=== PATIENT | female | born 1955 | race Caucasian/White ===

== ENCOUNTER → 2019-02-17 | Outpatient (CLI) | payer BC, SELFPAY ==
[2019-02-17 15:47] VITALS: BMI 35.7
[2019-02-18 00:32] LABS: ALB/GLOB Ratio 1.2 RATIO (0.9-2.4); AST(SGOT) 17 U/L (15-37); Alanine Aminotransfer ALT/SGPT 20 U/L (13-56); Albumin, Serum 4.2 g/dL (3.2-5.0); Alkaline Phosphatase 105 U/L (45-117); Anion Gap 2 (5-15); BUN 16 mg/dL (7-18); BUN/Creat Ratio 20.7 RATIO (10-20); Calcium,Total 8.7 mg/dL (8.5-10.1); Chloride 104 mmol/L (98-107); Cholesterol 257 mg/dL (200); Creatinine, Serum 0.77 mg/dL (0.55-1.02); EST Glomerular Filtration Rate 80 mL/min (>60); Est Glom Filt Rate - Afr Amer 97 mL/min (>60); Globulin 3.5 g/dL (2.2-4.2); Glucose 98 mg/dL (74-106); High Density Lipoprotein 42 mg/dL; Potassium 4.2 mmol/L (3.5-5.1); Protein, Total 7.7 g/dL (6.4-8.2); Sodium Level 137 mmol/L (136-145); Thyroid Stim Hormone (TSH) 1.22 uIU/mL (0.358-3.74); Triglycerides 390 mg/dL; Very Low Density Lipoprotein 78 mg/dL (5-40)
[2019-02-18 00:38] LABS: Absolute Lymphocyte Count 3.98 X10^3/ul (0.83-4.51); Absolute Neutrophil Count 5.3 X10^3/uL (2.0-7.7); Basophil# 0.04 X10^3/uL; Basophil% 0.4 % (0-1); Eosinophil# 0.24 X10^3/uL; Eosinophils% 2.3 % (0-5); Hematocrit 37.5 % (37-47); Lymphocyte # 3.98 X10^3/ul (4.0); Lymphocyte % 38.1 % (19-41); Mean Corpuscular Volume 92.4 fL (81-99); Mean Platelet Vol. 10.7 fl (6.2-12.0); Monocyte# 0.87 X10^3/uL; Monocyte% 8.3 % (0-10); Neutrophil % 50.8 % (47-70); Platelet Count 306 K/mm3 (150-450); RBC Distribution Width CV 14.8 % (11.6-14.6); RBC Distribution Width SD 41.1 fl (35.1-43.9); Red Blood Count 4.06 M/mm3 (4.2-5.4); White Blood Count 10.4 K/mm3 (4.4-11.0)
[2019-02-18 00:43] LABS: Hemoglobin 13.8 g/dl (12.0-15.0); Mean Corp Hgb Conc 36.8 g/gl (32-36)
[2019-02-18 00:44] LABS: Differential Indicated SCAN CRITERIA MET; POSITIVE COUNT YES; POSITIVE DIFFERENTIAL NO; POSITIVE MORPHOLOGY NO
[2019-02-18 02:07] LABS: Differential Comment SCANNED; Platelet Estimate ADEQUATE (ADEQ)
== END | disposition home or self-care (01) ==
PROVIDERS: Referring Provider Nurse Practitioner; Visit Provider Nurse Practitioner
DX: E03.9 Hypothyroidism, unspecified (principal); F41.9 Anxiety disorder, unspecified; E78.00 Pure hypercholesterolemia, unspecified
CPT/HCPCS: 80053; 80061; 84443; 85025

== ENCOUNTER → 2020-03-06 21:08 | Outpatient (CLI) | payer OTHER, SELFPAY ==
[2020-03-06 17:27] VITALS: BMI 35.9
[2020-03-06 21:37] LABS: Absolute Lymphocyte Count 3.73 X10^3/uL (0.83-4.51); Absolute Neutrophil Count 4.4 X10^3/uL (2.0-7.7); Basophil# 0.07 X10^3/uL; Basophil% 0.8 % (0-1); Eosinophil# 0.31 X10^3/uL; Eosinophils% 3.3 % (0-5); Hematocrit 42.9 % (37-47); Hemoglobin 13.9 g/dL (12.0-15.0); Lymphocyte # 3.73 X10^3/ul (4.0); Mean Corp Hgb Conc 32.4 g/dL (32-36); Mean Corpuscular Hgb 28.3 pg (27.0-32.0); Mean Corpuscular Volume 87.4 fL (81-99); Mean Platelet Vol. 10.7 fl (6.2-12.0); Monocyte# 0.76 X10^3/uL; Monocyte% 8.1 % (0-10); NRBC Flagged by Analyzer 0 % (0-5); Neutrophil # 4.44 X10^3/uL (2.7-7.7); Neutrophil % 47.6 % (47-70); Platelet Count 285 K/mm3 (150-450); Red Blood Count 4.91 M/mm3 (4.2-5.4); White Blood Count 9.3 K/mm3 (4.4-11.0)
[2020-03-06 21:41] LABS: ALB/GLOB Ratio 1.1 RATIO (0.9-2.4); AST(SGOT) 19 U/L (15-37); Alanine Aminotransfer ALT/SGPT 26 U/L (13-56); Albumin, Serum 4.1 g/dL (3.2-5.0); Alkaline Phosphatase 93 U/L (45-117); Anion Gap 7 (5-15); BUN 15 mg/dL (7-18); BUN/Creat Ratio 18.9 RATIO (10-20); Calcium,Total 9.1 mg/dL (8.5-10.1); Chloride 106 mmol/L (98-107); Cholesterol 243 mg/dL (200); EST Glomerular Filtration Rate 77 mL/min (>60); Est Glom Filt Rate - Afr Amer 93 mL/min (>60); Globulin 3.6 g/dL (2.2-4.2); Glucose 99 mg/dL (74-106); High Density Lipoprotein 43 mg/dL; Protein, Total 7.7 g/dL (6.4-8.2); Sodium Level 140 mmol/L (136-145); Thyroid Stim Hormone (TSH) 1.15 uIU/mL (0.358-3.74); Triglycerides 166 mg/dL; Very Low Density Lipoprotein 33 mg/dL (5-40)
== END ==
PROVIDERS: Referring Provider Nurse Practitioner; Visit Provider Nurse Practitioner
DX: E03.9 Hypothyroidism, unspecified (principal); I10 Essential (primary) hypertension
CPT/HCPCS: 80053; 80061; 83735; 84443; 85025

== ENCOUNTER → 2020-06-17 09:34 | Outpatient (CLI) | payer MEDICARE, SELFPAY ==
[2020-04-29 16:07] VITALS: BMI 35.2
--- NOTE | 2020-06-17 09:39 | VDLE_ITS ---
Reason For Study: VV W/other complications. RIGHT LEFT CFV is compressible, spontaneous, phasic, CFV is compressible, spontaneous, phasic, competent and demonstrates normal competent, and demonstrates normal augmentation. augmentation. FV is compressible, spontaneous, phasic, FV is compressible, spontaneous, phasic, competent and demonstrates normal competent and demonstrates normal augmentation. augmentation. POP V is compressible, spontaneous, phasic, POP V is compressible, spontaneous, phasic, competent and demonstrates normal competent and demonstrates normal augmentation. augmentation. T/P Trunk is compressible. T/P Trunk is compressible. PTV is compressible. PTV is compressible. RT PerV is compressible. LT PerV is compressible. SFJ is competent and measures 0.67 X 0.83 cm. SFJ is competent and measures 0.53 X 0.63 cm. GSV proximal thigh measures 0.59 X 0.62 cm. GSV proximal thigh measures 0.58 X 0.62 cm. GSV at knee measures 0.42 X 0.34 cm. GSV at knee measures 0.38 X 0.36 cm. GSV INCOMPETENT throughout for greater than GSV INCOMPETENT throughout for greater than 0.5 seconds. 0.5 seconds. SSV proximal calf is competent and measures Varicose Veins on medial knee area are 0.15 X 0.14 cm. compressible. RT GASTROCNEMIUS V IS DILATED & COMPRESSIBLE. Procedure Exam performed in department. The exam was diagnostic. Interpretation Summary 1. No DVT or SVT. Bilateral GSV reflux at 6.2mm and 6.2mm. Ordering Physician: Osito Garibay Referring Physician: soha Cruz Performed By: Elie SANTA RDCS, Coreen and Student
== END ==
PROVIDERS: PCP Nurse Practitioner; Referring Provider Surgery Vascular Surgery; Visit Provider Surgery Vascular Surgery
DX: I83.893 Varicose veins of bilateral lower extremities with other complications (principal)
CPT/HCPCS: 93970

== ENCOUNTER → 2021-06-05 21:28 | Outpatient (CLI) | payer MEDICARE, SELFPAY ==
[2021-06-05 22:09] LABS: ALB/GLOB Ratio 1.3 RATIO (0.9-2.4); AST(SGOT) 20 U/L (15-37); Alanine Aminotransfer ALT/SGPT 29 U/L (13-56); Albumin, Serum 4.3 g/dL (3.2-5.0); Alkaline Phosphatase 104 U/L (45-117); Anion Gap 8 (5-15); BUN 24 mg/dL (7-18); BUN/Creat Ratio 27.9 RATIO (10-20); Calcium,Total 9.1 mg/dL (8.5-10.1); Chloride 105 mmol/L (98-107); Cholesterol 255 mg/dL (200); Creatinine, Serum 0.86 mg/dL (0.55-1.02); EST Glomerular Filtration Rate 70 mL/min (>60); Est Glom Filt Rate - Afr Amer 85 mL/min (>60); Globulin 3.4 g/dL (2.2-4.2); Glucose 97 mg/dL (74-106); High Density Lipoprotein 44 mg/dL; Magnesium 2.2 mg/dL (1.6-2.6); Phosphorus 4.6 mg/dL (2.5-4.9); Protein, Total 7.7 g/dL (6.4-8.2); Sodium Level 138 mmol/L (136-145); Triglycerides 242 mg/dL; Very Low Density Lipoprotein 48 mg/dL (5-40)
[2021-06-05 22:28] LABS: Absolute Lymphocyte Count 3.88 X10^3/uL (0.83-4.51); Absolute Neutrophil Count 6.5 X10^3/uL (2.0-7.7); Basophil# 0.07 X10^3/uL; Basophil% 0.6 % (0-1); Eosinophil# 0.26 X10^3/uL; Eosinophils% 2.2 % (0-5); Hematocrit 44.5 % (37-47); Hemoglobin 14.6 g/dL (12.0-15.0); Lymphocyte # 3.88 X10^3/ul (0.83-4.51); Lymphocyte % 33.6 % (19-41); Mean Corp Hgb Conc 32.8 g/dL (32-36); Mean Corpuscular Hgb 28.6 pg (27.0-32.0); Mean Corpuscular Volume 87.1 fL (81-99); Mean Platelet Vol. 10.7 fl (6.2-12.0); Monocyte# 0.84 X10^3/uL; Monocyte% 7.3 % (0-10); NRBC Flagged by Analyzer 0 % (0-5); Neutrophil # 6.48 X10^3/uL (2.7-7.7); Platelet Count 301 K/mm3 (150-450); RBC Distribution Width SD 41.2 fl (35.1-43.9); Red Blood Count 5.11 M/mm3 (4.2-5.4); White Blood Count 11.6 K/mm3 (4.4-11.0)
[2021-06-06 10:03] LABS: PTHIN 53.5 pg/mL (18.4-80.1)
[2021-06-10 17:05] LABS: Vitamin D 1,25-Dihydroxy 39.1 pg/mL (19.9-79.3)
== END ==
PROVIDERS: PCP Nurse Practitioner; Visit Provider Nurse Practitioner
DX: Z00.00 Encounter for general adult medical examination without abnormal findings (principal); E03.9 Hypothyroidism, unspecified
CPT/HCPCS: 80053; 80061; 82652; 83735; 83970; 84100; 85025

== ENCOUNTER → 2021-07-31 21:24 | Outpatient (CLI) | payer MEDICARE, SELFPAY ==
[2021-07-31 22:22] LABS: Absolute Lymphocyte Count 3.13 X10^3/uL (0.83-4.51); Basophil# 0.06 X10^3/uL; Basophil% 0.5 % (0-1); Eosinophil# 0.24 X10^3/uL; Eosinophils% 2.1 % (0-5); Hematocrit 35.6 % (37-47); Hemoglobin 11.8 g/dL (12.0-15.0); Lymphocyte # 3.13 X10^3/ul (0.83-4.51); Mean Corp Hgb Conc 33.1 g/dL (32-36); Mean Corpuscular Hgb 28.9 pg (27.0-32.0); Mean Platelet Vol. 10.5 fl (6.2-12.0); Monocyte# 1.15 X10^3/uL; Monocyte% 9.9 % (0-10); NRBC Flagged by Analyzer 0 % (0-5); Neutrophil # 6.97 X10^3/uL (2.7-7.7); Platelet Count 303 K/mm3 (150-450); RBC Distribution Width CV 13.4 % (11.6-14.6); RBC Distribution Width SD 42.4 fl (35.1-43.9); Red Blood Count 4.09 M/mm3 (4.2-5.4); White Blood Count 11.6 K/mm3 (4.4-11.0)
[2021-07-31 22:38] LABS: ALB/GLOB Ratio 0.6 RATIO (0.9-2.4); AST(SGOT) 53 U/L (15-37); Alanine Aminotransfer ALT/SGPT 111 U/L (13-56); Albumin, Serum 3.1 g/dL (3.2-5.0); Alkaline Phosphatase 255 U/L (45-117); Anion Gap 10 (5-15); BUN 19 mg/dL (7-18); BUN/Creat Ratio 24.8 RATIO (10-20); Calcium,Total 8.7 mg/dL (8.5-10.1); Chloride 105 mmol/L (98-107); Creatinine, Serum 0.76 mg/dL (0.55-1.02); EST Glomerular Filtration Rate 80 mL/min (>60); Est Glom Filt Rate - Afr Amer 97 mL/min (>60); Globulin 4.9 g/dL (2.2-4.2); Glucose 99 mg/dL (74-106); Potassium 3.7 mmol/L (3.5-5.1); Sodium Level 139 mmol/L (136-145); Thyroid Stim Hormone (TSH) 0.96 uIU/mL (0.358-3.74)
== END ==
PROVIDERS: PCP Nurse Practitioner; Visit Provider Nurse Practitioner
DX: E03.9 Hypothyroidism, unspecified (principal); R53.83 Other fatigue; R53.1 Weakness
CPT/HCPCS: 80053; 84443; 85025

== ENCOUNTER → 2021-08-01 22:24 | Outpatient (CLI) | payer MEDICARE, SELFPAY ==
[2021-08-04 17:07] LABS: Endomysial Antibody IgA Negative (Negative); HEPATITIS B SURFACE AG Negative (Negative); Hepatitis A IgM Antibody Negative (Negative); Hepatitis B Core AB IgM Negative (Negative); Immunoglobulin A 218 mg/dL (87-352)
[2021-08-04 17:16] LABS: Hep C Antibodies 0.2 s/co ratio (0.0-0.9)
[2021-08-04 17:17] LABS: Deamidated Gliadin IgA 3 units (0-19); Deamidated Gliadin IgG 2 units (0-19); EBV Acute VCA IgM < 36.0 U/mL (0.0-35.9); EBV-VCA IgG > 600.0 U/mL (0.0-17.9); t-Transglutaminase IgA <2 U/mL (0-3)
== END ==
PROVIDERS: PCP Nurse Practitioner; Referring Provider Nurse Practitioner; Visit Provider Nurse Practitioner
DX: R74.8 Abnormal levels of other serum enzymes (principal); R53.83 Other fatigue; E46 Unspecified protein-calorie malnutrition; D64.9 Anemia, unspecified
CPT/HCPCS: 80074; 82784; 83516; 86255; 86664; 86665

== ENCOUNTER → 2021-08-12 09:25 | Outpatient (CLI) | payer MEDICARE, SELFPAY ==
--- NOTE | 2021-08-12 09:28 | US_ITS ---
STUDY: ABDOMINAL ULTRASOUND - RIGHT UPPER QUADRANT REASON FOR VISIT: Female, 65 years old elevated liver enzymes TECHNIQUE: Ultrasound evaluation of the right upper quadrant was performed with real-time and static goff-scale imaging. TECHNICAL QUALITY: Adequate. COMPARISON: None. FINDINGS: Visualized liver parenchyma shows homogeneous echotexture. There is no gallbladder stone. 2 tiny adjacent polyps are seen in the gallbladder measuring up to 0.3 cm. No gallbladder wall thickening or pericholecystic fluid is seen. Sonographic Aguilar''s sign has been reported negative. Common bile duct measures 0.4 cm in diameter. Visualized pancreatic head and body, portal vein, and right kidney are unremarkable. There is no free fluid in the Martinez''s pouch. US/Liver IMPRESSION: 2 tiny adjacent polyps in the gallbladder; otherwise, unremarkable right upper quadrant ultrasound. Electronically Signed: Lew Hdez MD at 16:33 EDT Tel , Service support ,
== END ==
PROVIDERS: PCP Nurse Practitioner; Referring Provider Nurse Practitioner; Visit Provider Nurse Practitioner
DX: D64.9 Anemia, unspecified (principal); E46 Unspecified protein-calorie malnutrition; R74.8 Abnormal levels of other serum enzymes; R53.1 Weakness; R53.83 Other fatigue
CPT/HCPCS: 76705

== ENCOUNTER → 2022-06-17 | Outpatient (CLI) | payer MEDICARE, SELFPAY ==
[2022-06-17 22:09] LABS: Absolute Lymphocyte Count 3.38 X10^3/uL (0.83-4.51); Absolute Neutrophil Count 5.6 X10^3/uL (2.0-7.7); Basophil# 0.05 X10^3/uL; Basophil% 0.5 % (0-1); Eosinophil# 0.11 X10^3/uL; Eosinophils% 1.1 % (0-5); Hematocrit 42.1 % (37-47); Hemoglobin 13.8 g/dL (12.0-15.0); Lymphocyte # 3.38 X10^3/ul (0.83-4.51); Lymphocyte % 34.3 % (19-41); Mean Corp Hgb Conc 32.8 g/dL (32-36); Mean Corpuscular Hgb 29.1 pg (27.0-32.0); Mean Corpuscular Volume 88.6 fL (81-99); Mean Platelet Vol. 10.7 fl (6.2-12.0); Monocyte# 0.69 X10^3/uL; NRBC Flagged by Analyzer 0 % (0-5); Neutrophil # 5.58 X10^3/uL (2.7-7.7); Neutrophil % 56.8 % (47-70); Platelet Count 310 K/mm3 (150-450); RBC Distribution Width SD 42.2 fl (35.1-43.9); Red Blood Count 4.75 M/mm3 (4.2-5.4); White Blood Count 9.8 K/mm3 (4.4-11.0)
[2022-06-17 22:47] LABS: ALB/GLOB Ratio 1.2 RATIO (0.9-2.4); AST(SGOT) 15 U/L (15-37); Alanine Aminotransfer ALT/SGPT 21 U/L (13-56); Albumin, Serum 3.8 g/dL (3.2-5.0); Alkaline Phosphatase 88 U/L (45-117); Anion Gap 6 (5-15); BUN 20 mg/dL (7-18); Calcium,Total 8.9 mg/dL (8.5-10.1); Chloride 106 mmol/L (98-107); Cholesterol 222 mg/dL (200); Creatinine, Serum 0.83 mg/dL (0.55-1.02); EST Glomerular Filtration Rate 72 mL/min (>60); Est Glom Filt Rate - Afr Amer 88 mL/min (>60); Globulin 3.3 g/dL (2.2-4.2); Glucose 116 mg/dL (74-106); High Density Lipoprotein 44 mg/dL; Potassium 3.7 mmol/L (3.5-5.1); Protein, Total 7.1 g/dL (6.4-8.2); Sodium Level 139 mmol/L (136-145); Thyroid Stim Hormone (TSH) 1.25 uIU/mL (0.358-3.74); Triglycerides 219 mg/dL; Very Low Density Lipoprotein 44 mg/dL (5-40)
== END | disposition home or self-care (01) ==
PROVIDERS: PCP Nurse Practitioner; Visit Provider Nurse Practitioner
DX: Z00.00 Encounter for general adult medical examination without abnormal findings (principal); E03.9 Hypothyroidism, unspecified; F41.9 Anxiety disorder, unspecified
CPT/HCPCS: 80053; 80061; 84443; 85025

== ENCOUNTER → 2022-07-14 | Outpatient (CLI) | payer MEDICARE, SELFPAY ==
[2022-07-23 16:09] LABS: Lyme IgG P18 Ab Absent (.); Lyme IgG P23 Ab Absent (.); Lyme IgG P28 Ab Present (.); Lyme IgG P30 Ab Absent (.); Lyme IgG P39 Ab Present (.); Lyme IgG P41 Ab Present (.); Lyme IgG P45 Ab Absent (.); Lyme IgG P58 Ab Present (.); Lyme IgG P66 Ab Absent (.); Lyme IgG P93 Ab Present (.); Lyme IgM P23 Ab Absent (.); Lyme IgM P39 Ab Absent (.); Lyme IgM P41 Ab Absent (.)
[2022-07-24 15:24] LABS: Lyme IgG WB Interpretation Positive (.); Lyme IgM WB Interpretation Negative (.)
== END | disposition home or self-care (01) ==
PROVIDERS: PCP Nurse Practitioner; Visit Provider Nurse Practitioner
DX: L29.9 Pruritus, unspecified (principal)
CPT/HCPCS: 86617

== ENCOUNTER → 2022-10-27 | Outpatient (CLI) | payer OTHER, SELFPAY ==
[2022-10-27 22:34] LABS: ALB/GLOB Ratio 1.3 RATIO (0.9-2.4); AST(SGOT) 12 U/L (15-37); Alanine Aminotransfer ALT/SGPT 23 U/L (13-56); Alkaline Phosphatase 98 U/L (45-117); Anion Gap 7 (5-15); BUN 14 mg/dL (7-18); Calcium,Total 8.7 mg/dL (8.5-10.1); Chloride 106 mmol/L (98-107); Creatinine, Serum 0.78 mg/dL (0.55-1.02); EST Glomerular Filtration Rate 78 mL/min (>60); Est Glom Filt Rate - Afr Amer 95 mL/min (>60); Glucose 106 mg/dL (74-106); Potassium 4.3 mmol/L (3.5-5.1); Sodium Level 142 mmol/L (136-145)
[2022-10-27 22:39] LABS: Absolute Lymphocyte Count 3.62 X10^3/uL (0.83-4.51); Absolute Neutrophil Count 6.1 X10^3/uL (2.0-7.7); Basophil# 0.07 X10^3/uL; Basophil% 0.6 % (0-1); Eosinophil# 0.26 X10^3/uL; Eosinophils% 2.4 % (0-5); Hematocrit 40.5 % (37-47); Hemoglobin 13.8 g/dL (12.0-15.0); Lymphocyte # 3.62 X10^3/ul (0.83-4.51); Lymphocyte % 33.6 % (19-41); Mean Corp Hgb Conc 34.1 g/dL (32-36); Mean Corpuscular Hgb 30.1 pg (27.0-32.0); Mean Corpuscular Volume 88.2 fL (81-99); Mean Platelet Vol. 10.6 fl (6.2-12.0); Monocyte# 0.76 X10^3/uL; Monocyte% 7.1 % (0-10); NRBC Flagged by Analyzer 0 % (0-5); Neutrophil # 6.05 X10^3/uL (2.7-7.7); Neutrophil % 56.1 % (47-70); Platelet Count 272 K/mm3 (150-450); RBC Distribution Width CV 13.1 % (11.6-14.6); RBC Distribution Width SD 42.1 fl (35.1-43.9); Red Blood Count 4.59 M/mm3 (4.2-5.4); White Blood Count 10.8 K/mm3 (4.4-11.0)
[2022-10-29 14:09] LABS: Anti-Centromere B Ab <0.2 AI (0.0-0.9); Anti-Chromatin <0.2 AI (0.0-0.9); Anti-Jo <0.2 AI (0.0-0.9); Anti-Scleroderma-70 AB <0.2 AI (0.0-0.9); RNP Ab 0.7 AI (0.0-0.9); SJOGREN'S Anti-SS-A test < 0.2 AI (0.0-0.9); SJOGREN'S Anti-SS-B test < 0.2 AI (0.0-0.9); Smith Ab <0.2 AI (0.0-0.9)
[2022-10-29 15:16] LABS: EBV Acute VCA IgM < 36.0 U/mL (0.0-35.9); EBV-VCA IgG > 600.0 U/mL (0.0-17.9)
[2022-10-29 17:32] LABS: Anti-dsDNA Ab 1 IU/mL (0-9)
== END | disposition home or self-care (01) ==
PROVIDERS: PCP Nurse Practitioner; Visit Provider Nurse Practitioner
DX: M16.11 Unilateral primary osteoarthritis, right hip (principal); B27.90 Infectious mononucleosis, unspecified without complication
CPT/HCPCS: 80053; 85025; 86225; 86235; 86664; 86665

== ENCOUNTER → 2023-03-17 | Outpatient (CLI) | payer OTHER, SELFPAY ==
[2023-03-17 22:03] LABS: Absolute Lymphocyte Count 3.95 X10^3/uL (0.83-4.51); Absolute Neutrophil Count 5.7 X10^3/uL (2.0-7.7); Basophil# 0.07 X10^3/uL; Basophil% 0.6 % (0-1); Eosinophil# 0.29 X10^3/uL; Eosinophils% 2.7 % (0-5); Hemoglobin 13.7 g/dL (12.0-15.0); Lymphocyte # 3.95 X10^3/ul (0.83-4.51); Lymphocyte % 36.4 % (19-41); Mean Corp Hgb Conc 33.4 g/dL (32-36); Mean Corpuscular Hgb 29.4 pg (27.0-32.0); Mean Platelet Vol. 10.4 fl (6.2-12.0); Monocyte# 0.84 X10^3/uL; Monocyte% 7.7 % (0-10); NRBC Flagged by Analyzer 0 % (0-5); Neutrophil # 5.66 X10^3/uL (2.7-7.7); Neutrophil % 52.3 % (47-70); Platelet Count 291 K/mm3 (150-450); RBC Distribution Width CV 13.3 % (11.6-14.6); Red Blood Count 4.66 M/mm3 (4.2-5.4); White Blood Count 10.8 K/mm3 (4.4-11.0)
[2023-03-17 22:16] LABS: ALB/GLOB Ratio 1.1 RATIO (0.9-2.4); AST(SGOT) 20 U/L (15-37); Alanine Aminotransfer ALT/SGPT 25 U/L (13-56); Alkaline Phosphatase 99 U/L (45-117); Anion Gap 7 (5-15); BUN 30 mg/dL (7-18); BUN/Creat Ratio 26.3 RATIO (10-20); Calcium,Total 8.5 mg/dL (8.5-10.1); Chloride 108 mmol/L (98-107); Cholesterol 235 mg/dL (200); Creatinine, Serum 1.14 mg/dL (0.55-1.02); EST Glomerular Filtration Rate 50 mL/min (>60); Est Glom Filt Rate - Afr Amer 61 mL/min (>60); Globulin 3.5 g/dL (2.2-4.2); Glucose 104 mg/dL (74-106); High Density Lipoprotein 45 mg/dL; Potassium 4.4 mmol/L (3.5-5.1); Protein, Total 7.5 g/dL (6.4-8.2); Sodium Level 140 mmol/L (136-145); Thyroid Stim Hormone (TSH) 4.26 uIU/mL (0.358-3.74); Triglycerides 226 mg/dL; Very Low Density Lipoprotein 45 mg/dL (5-40)
[2023-03-19 14:10] LABS: CMV Antibody IgG > 10.00 U/mL (0.00-0.59); EBV Acute VCA IgM < 36.0 U/mL (0.0-35.9); EBV-VCA IgG > 600.0 U/mL (0.0-17.9)
== END | disposition home or self-care (01) ==
PROVIDERS: PCP Nurse Practitioner; Visit Provider Nurse Practitioner
DX: E53.8 Deficiency of other specified B group vitamins (principal); E03.9 Hypothyroidism, unspecified; B27.90 Infectious mononucleosis, unspecified without complication; M25.50 Pain in unspecified joint; R53.83 Other fatigue; D64.9 Anemia, unspecified; F41.9 Anxiety disorder, unspecified
CPT/HCPCS: 80053; 80061; 84443; 85025; 86644; 86664; 86665

== ENCOUNTER → 2023-04-22 | Outpatient (CLI) | payer OTHER, SELFPAY ==
[2023-04-22 21:04] LABS: T4 Free Direct 0.73 ng/dL (0.76-1.46)
== END | disposition home or self-care (01) ==
PROVIDERS: PCP Nurse Practitioner; Visit Provider Nurse Practitioner
DX: F41.9 Anxiety disorder, unspecified (principal)
CPT/HCPCS: 84439; 84443

== ENCOUNTER → 2024-02-02 | Outpatient (CLI) | payer MEDICARE, SELFPAY ==
--- NOTE | 2024-02-02 11:37 | US_ITS ---
PROCEDURE: RENAL ULTRASOUND - COMPLETE REASON FOR EXAM: Female, 68 years old. UTI TECHNIQUE: Ultrasound evaluation of the bilateral kidneys was performed with real-time ultrasonography and static grayscale imaging. COMPARISON: None. FINDINGS: RIGHT KIDNEY: Normal location of the right kidney which is normal in size. The right kidney measures 10.8 x 6.8 x 4.7 cm. There is a normal cortex of the right kidney. The renal cortex measures 1.4 cm. There is no right renal mass or cyst. There are no right renal calculi. There is no right hydronephrosis. DISTAL RIGHT URETER: There is non-visualization of the distal right ureter. There is no demonstrated right ureterovesical junction calculus. There is a visualized right ureteral jet. LEFT KIDNEY: Normal location of the left kidney which is normal in size. The left kidney measures 14.2 x 5.8 x 5.4 cm. There is a normal cortex of the left kidney. The renal cortex measures 1.6 cm. There is a large cyst in the lower pole of the left kidney measuring about 10 x 12 x 6 cm There are no left renal calculi. There is no left hydronephrosis. DISTAL LEFT URETER: There is non-visualization of the distal left ureter. There is no demonstrated left ureterovesical junction calculus. There is a visualized left ureteral jet. BLADDER: The distended urinary bladder has a volume of 177 ml. There is a normal wall thickness of the distended urinary bladder. There is no demonstrated mass within the urinary bladder. There is no demonstrated bladder calculi. US/Kidney and Bladder IMPRESSION: 1. No evidence of hydronephrosis. 2. Large left renal cyst. Electronically Signed: Rafita Ivan MD at 13:58 EDT ,
== END | disposition home or self-care (01) ==
LOC: US 11:36
PROVIDERS: PCP Nurse Practitioner; Referring Provider Urology; Visit Provider Urology
DX: N39.0 Urinary tract infection, site not specified (principal)
CPT/HCPCS: 76770

== ENCOUNTER → 2024-08-28 | Outpatient (CLI) | payer MEDICARE, SELFPAY ==
[2024-08-29 00:19] LABS: ALB/GLOB Ratio 1.2 RATIO (0.9-2.4); AST(SGOT) 14 U/L (15-37); Alanine Aminotransfer ALT/SGPT 24 U/L (13-56); Albumin, Serum 3.9 g/dL (3.2-5.0); Alkaline Phosphatase 102 U/L (45-117); Anion Gap 7 (5-15); BUN 19 mg/dL (7-18); BUN/Creat Ratio 26.2 RATIO (10-20); Calcium,Total 8.6 mg/dL (8.5-10.1); Chloride 105 mmol/L (98-107); Cholesterol 230 mg/dL (200); Creatinine, Serum 0.72 mg/dL (0.55-1.02); EST Glomerular Filtration Rate 85 mL/min (>60); Est Glom Filt Rate - Afr Amer 102 mL/min (>60); Globulin 3.3 g/dL (2.2-4.2); Glucose 98 mg/dL (74-106); High Density Lipoprotein 51 mg/dL; Potassium 4.3 mmol/L (3.5-5.1); Protein, Total 7.2 g/dL (6.4-8.2); Sodium Level 138 mmol/L (136-145); Triglycerides 172 mg/dL; Very Low Density Lipoprotein 34 mg/dL (5-40)
[2024-08-29 02:09] LABS: Absolute Lymphocyte Count 4.09 X10^3/uL (0.83-4.51); Absolute Neutrophil Count 6.2 X10^3/uL (2.0-7.7); Basophil# 0.09 X10^3/uL; Basophil% 0.8 % (0-1); Eosinophil# 0.18 X10^3/uL; Eosinophils% 1.6 % (0-5); Hematocrit 42.9 % (37-47); Lymphocyte # 4.09 X10^3/ul (0.83-4.51); Mean Corpuscular Hgb 29.7 pg (27.0-32.0); Mean Corpuscular Volume 91.1 fL (81-99); Mean Platelet Vol. 11.3 fl (6.2-12.0); Monocyte# 0.75 X10^3/uL; Monocyte% 6.6 % (0-10); NRBC Flagged by Analyzer 0 % (0-5); Neutrophil # 6.16 X10^3/uL (2.7-7.7); Neutrophil % 54.1 % (47-70); Platelet Count 280 K/mm3 (150-450); RBC Distribution Width CV 13.7 % (11.6-14.6); RBC Distribution Width SD 44.9 fl (35.1-43.9); Red Blood Count 4.71 M/mm3 (4.2-5.4); White Blood Count 11.4 K/mm3 (4.4-11.0)
[2024-08-29 03:04] LABS: Mean Corp Hgb Conc 32.6 g/dL (32-36)
== END | disposition home or self-care (01) ==
PROVIDERS: PCP Nurse Practitioner; Referring Provider Nurse Practitioner; Visit Provider Nurse Practitioner
DX: Z00.00 Encounter for general adult medical examination without abnormal findings (principal); E03.9 Hypothyroidism, unspecified; I10 Essential (primary) hypertension; D51.0 Vitamin B12 deficiency anemia due to intrinsic factor deficiency
CPT/HCPCS: 80053; 80061; 84443; 85025

== ENCOUNTER → 2025-05-23 | Outpatient (CLI) | payer MEDICARE, SELFPAY ==
--- OUTSIDE RECORDS SUMMARY | 2025-05-23 21:16 | XMS RPT_ITS | CCD ---
Author Organization [facility] Care Team Providers Care Manager Nuclear Name Role Phone Brian ADAMSON, Arun Melendez Unavailable [phone] Anthony BROADCAST NEWS PRODUCER.YANN, Elmo Mason Primary Care Provide r Anthony BROADCAST NEWS PRODUCER.YANN, Elmo L Primary Care Provide r ISELA PINO Attending Unavailable ELMO ACKERMAN Primary Care Unavailable Anthony MARKETING SALES CONSULTANT, Elmo Primary Care Unavailable Anthony MARKETING SALES CONSULTANT, Elmo Attending Unavailable Anthony MARKETING SALES CONSULTANT, Elmo Referring Unavailable Tati Rivera Attending Unavailable Tati Rivera Referring Unavailable Anthony MARKETING SALES CONSULTANT, Elmo Primary Care Unavailable Anthony BROADCAST NEWS PRODUCER.PROCESSING ASSOCIATE, Elmo L Primary Care Provide r ELMO ACKERMAN Primary Care Unavailable Allergies Allergy Classification Reported Allergen(s) Allergy Type Date of Onset Reaction(s) Facility (1 source) House dust mite; Translations: [DUST MITES] allergy to substance 0 [facility] Work Phone: (1 source) Kingdom Animalia; Translations: [ANIMALS] allergy to substance 0 [facility] Work Phone: (1 source) Mold Extract; Translations: [MOLD] Drug Allergy 0 [facility] Work Phone: (1 source) PLANT POLLENS; Translations: [PLANT POLLENS] allergy to substance 0 [facility] Work Phone: (1 source) GENERAL ANESTHETIC drug allergy 0 [facility] Work Phone: Medications Current Medications Medication Drug Class(es) Dates Sig (Normalized) Sig (Original) ALPRAZolam 0.5 mg oral tablet (20 sources) Benzodiazepine Start: 12-08-2019 End: 06-17-2023 take 0.5 mg by mouth once daily Alprazolam Active 0.5 MG PO DAILY June 17, 2023 3:13pm Start: 02-17-2019 End: 12-08-2019 take 0.25 mg by mouth at bedtime Alprazolam Discontinued 0.25 MG PO AT BEDTIME February 17, 2019 12:00am December 08, 2019 6:13pm Start: 02-17-2019 End: 02-17-2019 take 0.5 mg by mouth twice daily Alprazolam Discontinued 0.5 MG PO TWICE A DAY February 17, 2019 12:00am February 17, 2019 4:10pm azelastine hydrochloride 0.137 mg/actuat metered dose nasal spray (11 sources) Histamine-1 Receptor Antagonist take 2 spray(s) nasal route twice daily as needed azelastine (ASTELIN,ASTEPRO) 0.1% nasal spray Use 2 Sprays in each nostril twice daily as needed. Active Comment on above: Use 2 Sprays in each nostril twice daily as needed. Budesonide / formoterol (11 sources) Corticosteroid, beta2-Adrenergic Agonist take 2 puff(s) by inhalation twice daily as needed budesonide-formoterol (SYMBICORT) 80-4.5 mcg/actuation inhaler Inhale 2 Puffs as instructed twice daily as needed. Active take 2 puff(s) by in halation twice daily as needed budesonide-formoterol (SYMBICORT) 80-4.5 mcg/actuation inhaler Inhale 2 Puffs as instructed twice daily as needed. 0 Active Comment on above: Inhale 2 Puffs as in structed twice daily as needed. famotidine 20 mg oral tablet (1 source) Histamine-2 Receptor Antagonist Start: 06-17-20 take 20 mg by mouth once daily Famotidine Active 20 MG PO DAILY June 17, 2023 12:00am levothyroxine sodium 0.075 mg oral tablet (11 sources) l-Thyroxine take 1 tablet by mouth once daily before breakfast levothyroxine (SYNTHROID) 75 mcg tablet Take 75 mcg by mouth daily before breakfast. Active Comment on above: Take 75 mcg by mouth daily before breakfast. lisinopril 10 mg oral tablet (20 sources) Angiotensin Converting Enzyme Inhibitor Start: 02-18-20 End: 06-17-20 take 10 mg by mouth once daily Lisinopril Active 10 MG PO DAILY June 17, 2023 3:14pm Comment on above: Take 10 mg by mouth once daily. pantoprazole 40 mg delayed release oral tablet (11 sources) Proton Pump Inhibitor Start: 12-18-19 take 1 tablet by mouth once daily pantoprazole DR (PROTONIX) 40 mg tablet Take 1 tablet by mouth once daily. 30 tablet 12/17/2017 Active Comment on above: Take 1 tablet by nani th once daily. Thyroid (Pork) (Frontenac Thyroid) 30 mg tablet (3 sources) Start: 06-17-20 take 1 tablet by mouth once daily Thyroid (Pork) (Frontenac Thyroid) 30 mg tablet Active 60 MG PO DAILY June 17, 2023 3:16pm Start: 04-23-2023 End: 06-17-2023 take 1 tablet by mouth once daily Thyroid (Pork) (Frontenac Thyroid) 30 mg tablet Discontinued 60 MG PO DAILY April 23, 2023 1:06pm June 17, 2023 3:16pm Start: 04-23-2023 take 1 tablet by nani th once daily Thyroid (Pork) (Frontenac Thyroid) 30 mg tablet Active 60 MG PO DAILY April 23, 2023 1:06pm Completed/Discontinued Medications Medication Drug Class(es) Dates Sig (Normalized) Sig (Original) 200 actuat albuterol 0.09 mg/actuat metered dose inhaler (12 sources) beta2-Adrenergic Agonist Start: 09-04-2020 PROAIR HFA 108 (90 Base) MCG/ACT AERS as directed as needed ALBUTEROL SULFATE [id number] Alisha Benavides LPN take 2.5 mg by inhal ation every four hours as needed albuterol (PROVENTIL) 2.5 mg /3 mL (0.08 3 %) nebulizer solution Use 2.5 mg via nebulizer every 4 hours as needed. Active Comment on above: Use 2.5 mg via nebul izer every 4 hours as needed. amoxicillin 875 mg oral tablet (2 sources) Penicillin-class Antibacterial Start: 04-23-20 End: 06-17-20 take 875 mg by mouth twice daily Amoxicillin Discontinued 875 MG PO TWICE A DAY April 23, 2023 12:00am June 17, 2023 3:06pm cefdinir 300 mg oral capsule (5 sources) Cephalosporin Antibacterial Start: 05-07-20 End: 06-17-20 take 300 mg by mouth twice daily Cefdinir Discontinued 300 MG PO TWICE A DAY May 07, 2022 12:00am June 17, 2022 4:36pm cetirizine hydrochloride 10 mg oral tablet (17 sources) Histamine-1 Receptor Antagonist Start: 09-04-20 CETIRIZINE HCL 10 MG TABS 1 tablet daily CETIRIZINE HCL [id number] Alisha Benavides LPN Start: 02-17-2019 take 1 tablet by nani once daily Cetirizine (Children's Zyrtec Allergy) 1 0 mg tablet,disintegrating Active 10 MG PO DAILY February 17, 2019 12:00am Comment on above: Take 10 mg by mouth once daily. CINNAMON TABS (1 source) Non-Standardized Food Allergenic Extract Start: CINNAMON TABS daily as directed CINNAMON TABS [id number] Alisha Benavides LPN ciprofloxacin 500 mg oral tablet (1 source) Quinolone Antimicrobial Start: 023 End: take 1 tablet by mouth twice daily Ciprofloxacin Hcl (Cipro) 500 mg tablet Discontinued 500 MG PO TWICE A DAY July 26, 2023 12:00am November 26, 2023 6:42pm clindamycin 150 mg oral capsule (5 sources) Lincosamide Antibacterial Start: 021 End: take 150 mg by mouth three times daily Clindamycin Hcl Discontinued 150 MG PO THREE TIMES A DAY 16 08July 31, 2021 12:00am August 10, 2021 12:01am dexamethasone 6 mg oral tablet (5 sources) Corticosteroid Start: 022 End: take 6 mg by mouth twice daily Dexamethasone Discontinued 6 MG PO TWICE A DAY May 07, 2022 12:00am June 17, 2022 4:36pm doxycycline hyclate 100 mg oral capsule (4 sources) Tetracycline-class Drug Start: End: take 100 mg by mouth twice daily Doxycycline Hyclate Discontinued 100 MG PO TWICE A DAY 60 July 24, 2022 12:00am October 29, 2022 1:58pm ergocalciferol 1.25 mg oral capsule (5 sources) Provitamin D2 Compound Start: End: take 71759 [IU] by mouth every week Ergocalciferol (Vitamin D2) Discontinued 25763 UNIT PO EVERY WEEK February 17, 2019 12:00am March 06, 2020 4:14pm magnesium chloride 598 mg delayed release oral tablet (10 sources) Start: End: take 35 mg by mouth twice daily Magnesium Chloride Discontinued 35 MG PO TWICE A DAY March 06, 2020 4:15pm March 17, 2023 7:47pm Start: 12-08-2019 End: 03-06-2020 take 70 mg by mouth three times daily Magnesium Chloride Discontinued 70 MG PO THREE TIMES A DAY December 08, 2019 1:00am March 06, 2020 4:17pm mirtazapine 15 mg oral tablet (5 sources) Start: 02-17-2019 End: 02-17-2019 take 15 mg by mouth at bedtime Mirtazapine Discontinued 15 MG PO AT BEDTIME February 17, 2019 12:00am February 17, 2019 4:09pm Multivitamin preparation (5 sources) Start: 02-17-2019 End: 03-06-2020 take 1 tablet by mouth once daily Multivitamin Discontinued 1 TABLET PO DAILY February 16, 2019 11:00pm March 06, 2020 3:15pm Start: 02-17-2019 End: 03-06-2020 take 1 tablet by mouth once daily Multivitamin Discontinued 1 TABLET PO DAILY February 17, 2019 12:00am March 06, 2020 4:15pm Joliet-3 Fatty Acids (Fish Oil Concentrate) 1,000 mg capsule (5 sources) Start: 02-17-2019 End: 03-06-2020 take 1 capsule by mouth once daily Joliet-3 Fatty Acids (Fish Oil Concentrate) 1,000 mg capsule Discontinued 1000 MG PO DAILY February 16, 2019 11:00pm March 06, 2020 3:16pm Start: 02-17-2019 End: 03-06-2020 take 1 capsule by mouth once daily Joliet-3 Fatty Acids (Fish Oil Concentrate) 1,000 mg capsule Discontinued 1000 MG PO DAILY February 17, 2019 12:00am March 06, 2020 4:16pm omeprazole 20 mg delayed release oral tablet (11 sources) Proton Pump Inhibitor Start: 09-04-2020 OMEPRAZO LE 20 MG TBEC 1 tablet daily as needed OMEPRAZOLE [id number] Alisha Benavides LPN Start: 12-08-2019 End: 06-17-2023 take 20 mg by mouth once daily Omeprazole Discontinued 20 MG PO DAILY March 06, 2020 4:16pm June 17, 2023 3:07pm predniSONE 10 mg oral tablet (10 sources) Start: 07-14-2022 End: 07-18-2022 Prednisone Discontinued 20 M G PO TWICE A DAY 14 02July 14, 2022 12:00am July 18, 2022 12:09am 2 po bid 4D,1 po bid for 4 D, 1 po qd for 4 D 1/2 po qd for 2 days Start: 08-05-2020 End: 06-05-2021 take 40 mg by mouth once daily Prednisone Discontinued 40 MG PO DAILY August 05, 2020 12:00am June 05, 2021 5:51pm rOPINIRole 0.25 mg oral tablet (13 sources) Nonergot Dopamine Agonist Start: 06-05-2021 End: 03-17-2023 take 0.25 mg by mouth three times daily Ropinirole Discontinued 0.25 MG PO THREE TIMES A DAY June 17, 2022 4:45pm March 17, 2023 7:48pm thyroid (fci) 30 mg oral tablet (20 sources) Start: 09-04-2020 ARMOUR THYROID 30 MG TABS 1 tablet daily THYROID [id number] Alisha Benavides LPN Start: 09-04-2020 ARMOUR THYROID 15 MG TABS 1 tablet daily THYROID [id number] Alisha Benavides LPN Start: 02-17-2019 End: 04-23-2023 Thyroid (Pork) (Frontenac Thyro id) 30 mg tablet Discontinued 30 MG PO DAILY June 30, 2022 4:27pm April 23, 2023 1:07pm take with the 15 mg orally once a day to =45 mg Start: 02-17-2019 End: 04-23-2023 Thyroid (Pork) (Frontenac Thyro id) 15 mg tablet Discontinued 15 MG PO DAILY June 30, 2022 4:27pm April 23, 2023 1:06pm take with 30 mg to make 45 mg Start: 02-17-2019 End: 02-17-2019 take 1 tablet by mouth once daily Thyroid (Pork) (Frontenac Thyroid) 30 mg tablet Discontinued 30 MG PO DAILY February 17, 2019 12:00am February 17, 2019 4:14pm Start: 02-17-2019 End: 02-17-2019 take 1 tablet by mouth once daily Thyroid (Pork) (Frontenac Thyroid) 15 mg tablet Discontinued 15 MG PO DAILY February 17, 2019 12:00am February 17, 2019 4:14pm Comment on above: Take 30 mg by mouth once daily. Take 15 mg by mouth once daily. Vitamin B Complex (Vitamins B Complex) capsule (5 sources) Start: 02-17-2019 End: 06-17-2022 take 1 capsule by mouth once daily Vitamin B Complex (Vitamins B Complex) capsule Discontinued 1 CAP PO DAILY February 16, 2019 11:00pm June 17, 2022 3:37pm Start: 02-17-2019 End: 06-17-2022 take 1 capsule by mouth once daily Vitamin B Complex (Vitamins B Complex) capsule Discontinued 1 CAP PO DAILY February 17, 2019 12:00am June 17, 2022 4:37pm Problems Active Problems Problem Classification Problem Date Documented Date Episodic/Chronic Anxiety disorders (5 sources) Anxiety; Translations: [Anxiety disorder, unspecified] 02-17-2019 Chronic Deficiency and other anemia (5 sources) Anemia; Translations: [Anemia, unspecified] 08-12-2021 Episodic Diverticulosis and diverticulitis (1 source) Diverticulitis of intestine, part unspecified, without perforation or abscess without bleeding; Translations: [Diverticulitis] Onset: 05-16-2024 Chronic Essential hypertension (5 sources) Hypertensive disorder; Translations: [Essential (primary) hypertension] 12-08-2019 Chronic Genitourinary symptoms and ill-defined conditions (1 source) Urinary incontinence; Translations: [Unspecified urinary incontinence] 11-26-2023 Chronic Genitourinary symptoms and ill-defined conditions (1 source) Dysuria; Translations: [Dysuria] 07-26-2023 Episodic Headache; including migraine (2 sources) Chronic headache disorder; Translations: [Chronic headache disorder] 04-22-2023 Episodic Malaise and fatigue (10 sources) Fatigue; Translations: [Other fatigue] 08-12-2021 Episodic Nutritional deficiencies (5 sources) Undernutrition; Translations: [Unspecified protein-calorie malnutrition] 08-01-2021 Chronic Nutritional deficiencies (1 source) Cobalamin deficiency; Translations: [Deficiency of other specified B group vitamins] 02-03-2024 Episodic Osteoarthritis (5 sources) Unilateral primary osteoarthritis of first carpometacarpal joint, left hand; Translations: [Osteoarthritis of right hip joint] Onset: 09-18-2020 09-18-2020 Chronic Osteoporosis (5 sources) Osteoporosis; Translations: [Age-related osteoporosis without current pathological fracture] 06-17-2022 Chronic Other connective tissue disease (1 source) Other synovitis and tenosynovitis, left forearm; Translations: [Other synovitis and tenosynovitis, left forearm] Onset: 09-18-2020 09-18-2020 Episodic Other connective tissue disease (5 sources) Spasm; Translations: [Other muscle spasm] 06-05-2021 Episodic Other connective tissue disease (5 sources) Pain in thumb ; Translations: [Pain in left finger(s)] 08-05-2020 Episodic Other diseases of kidney and ureters (1 source) Cyst of kidney, acquired; Translations: [Renal cyst] Onset: 05-16-2024 Episodic Other hereditary and degenerative nervous system conditions (11 sources) Dystonia; Translations: [Dystonia, unspecified] Onset: 12-16-2017 12-16-2017 Chronic Other inflammatory condition of skin (5 sources) Pruritus of skin; Translations: [Pruritus, unspecified] 07-14-2022 Episodic Other liver diseases (5 sources) Elevated liver enzymes level; Translations: [Abnormal levels of other serum enzymes] 08-01-2021 Episodic Other nervous system disorders (1 source) Carpal tunnel syndrome, left upper limb; Translations: [Carpal tunnel syndrome, left upper limb] Onset: 09-18-2020 09-18-2020 Chronic Other non-traumatic joint disorders (5 sources) Decreased range of thumb movement; Translations: [Stiffness of unspecified hand, not elsewhere classified] 08-05-2020 Episodic Other non-traumatic joint disorders (5 sources) Hip pain; Translations: [Pain in left hip] 06-17-2022 Episodic Other non-traumatic joint disorders (4 sources) Multiple joint pain; Translations: [Pain in unspecified joint] 10-27-2022 Episodic Other screening for suspected conditions (not mental disorders or infectious disease) (11 sources) Patient encounter status; Translations: [Encounter for screening mammogram for malignant neoplasm of breast] Onset: 10-26-2024 02-17-2019 Episodic Other skin disorders (5 sources) Papule of skin; Translations: [Other skin changes] 07-14-2022 Episodic Otitis media and related conditions (2 sources) Otitis media; Translations: [Otitis media, unspecified, left ear] 04-23-2023 Episodic Prolapse of female genital organs (1 source) Cystocele; Translations: [Cystocele, unspecified] 11-26-2023 Chronic Spondylosis; intervertebral disc disorders; other back problems (2 sources) Neck pain; Translations: [Cervicalgia] 04-22-2023 Episodic Thyroid disorders (5 sources) Acquired hypothyroidism; Translations: [Hypothyroidism, unspecified] 02-17-2019 Chronic Viral infection (4 sources) Infectious mononucleosis; Translations: [Infectious mononucleosis, unspecified without complication] 10-27-2022 Episodic Past or Other Problems Problem Classification Problem Date Documented Date Episodic/Chronic Noninfectious gastroenteritis (11 sources) Ileitis; Translations: [Noninfective gastroenteritis and colitis, unspecified] Onset: 12-16-2017 12-16-2017 Episodic Unclassified (1 source) Problem Unclassified (5 sources) BONE CHIP PRESSURE ON THE NERVE 05-18-2022 Unclassified (5 sources) BUNIONECTOMY R FOOT 05-18-2022 Unclassified (5 sources) LIPOSUCTION 05-18-2022 Unclassified (5 sources) TUMMY TUCK 05-18-2022 Urinary tract infections (14 sources) Acute cystitis; Translations: [Acute cystitis without hematuria] Onset: 12-16-2017 12-16-2017 Episodic Results Test Name Value Interpretation Reference Range [facility] SCREENINGon 10-26-2024 [facility] SCREENING * * *Final Report* * * DATE OF EXAM: Oct 26 2024 10:57AM SONJA [id number] - [facility] SCREENING / PROCEDURE REASON: Z12.31 Breast screen by mammogram * * * * Physician Interpretation * * * * [place] [id number] #[id number] - MARISA SCREENING HISTORY: Patient is 69 years old and is seen for screening. No current complaints. Patient states no personal history of breast cancer. Patient states no personal history of other cancers. COMPARISON STUDIES: The present examination has been compared to prior imaging studies dated 05/07/2020 (mammogram), 07/22/2021 (mammogram), 08/13/2021 (mammogram), 06/25/2022 (mammogram) and 09/15/2023 (mammogram). MAMMOGRAM TECHNIQUE: The study was acquired using full field digital technology and interpreted from soft copy. Computer-aided detection was utilized by the radiologist in the interpretation of this examination. MAMMOGRAM FINDINGS: The breasts are almost entirely fatty. No suspicious masses, calcifications or other abnormalities are seen in either breast. There are no significant interval changes. IMPRESSION: There is no mammographic evidence of malignancy in either breast. Routine screening mammogram is recommended. Annual mammogram will be due in 1 year. BI-RADS Category 1: Negative RISK: Based on the Tyrer-Cuzick (TC) risk assessment model, this patient has a 1.1% lifetime risk of developing breast cancer, meaning they are at average risk for developing breast cancer. However, this is only an estimate based on available history provided on the patient's questionnaire. We encourage all patients to talk with their providers about these results, further recommendations for managing breast health, and appropriate supplemental screening options if the patient has dense breast tissue. Interpreting Radiologist: Sean Parrish M.D. Electronically signed on: 10/27/2024 [employer] Consultant: FERNANDO Transcribe Date/Time: Oct 26 2024 10:20A Dictated by : SEAN PARRISH MD This examination was interpreted and the report reviewed and electronically signed by: SEAN PARRISH MD on Oct 27 2024 8:25AM EST [id number] CN Normal [facility] CBC W/Diff, Automatedon 11-1 MCHC (RBC) [Mass/Vol] 32.6 g/dL Normal 32-36 [facility] Comment on above: Result Comment: Resu lts obtained from prewarmed specimen. AMENDED REPORT 08/29/24 0304 MCHC previously reported as: 32.6 g/dL Performed By: #### L [id number], L500.4050, L100.0100, L500.4100 #### [facility] [address] [place], [address] Comprehensive Metabolic Prof ilon 08-29-2024 Albumin [Mass/Vol] 3.9 g/dL Normal 3.2-5.0 [facility] Comment on above: Performed By: #### L [id number], L500.4050, L100.0100, L500.4100 #### [facility] [address] [place], [address] Albumin/Globulin [Mass ratio] 1.2 {ratio} Normal 0.9-2.4 [facility] Comment on above: Performed By: #### L [id number], L500.4050, L100.0100, L500.4100 #### [facility] [address] [place], [address] ALK P 102 U/L Normal 45-117 [facility] Comment on above: Performed By: #### L [id number], [id number], L100.0100, L500.4100 #### [facility] [address] [place], [address] ALT [Catalytic activity/Vol] 24 U/L Normal 13-56 [facility] Comment on above: Performed By: #### L [id number], L500.4050, L100.0100, L500.4100 #### [facility] [address] [place], [address] AST [Catalytic activity/Vol] 14 U/L Low 15-37 [facility] Comment on above: Performed By: #### L [id number], [id number], L100.0100, L500.4100 #### [facility] [address] [place], [address] Bilirubin [Mass/Vol] 0.60 mg/dL Normal 0.20-1.00 [facility] Comment on above: Result Comment: For patients on eltrombopag therapy, use of Dimension Kevin TBIL is not recommended. Performed By: #### L [id number], L500.4050, L100.0100, L500.4100 #### [facility] [address] [place], [address] BUN/CRE 26.2 RATIO High 10-20 [facility] Comment on above: Performed By: #### L [id number], L500.4050, L100.0100, L500.4100 #### [facility] [address] [place], [address] CA,Total 8.6 mg/dL Normal 8.5-10.1 [facility] Comment on above: Performed By: #### L [id number], [id number], L100.0100, L500.4100 #### [facility] [address] [place], [address] Chloride [Moles/Vol] 105 mmol/L Normal 98-107 [facility] Comment on above: Performed By: #### L [id number], [id number], L100.0100, L500.4100 #### [facility] [address] [place], [address] CO2 [Moles/Vol] 26.0 mmol/L Normal 21.0-32.0 [facility] Comment on above: Performed By: #### L [id number], [id number], L100.0100, L500.4100 #### [facility] [address] [place], [address] Creatinine [Mass/Vol] 0.72 mg/dL Normal 0.55-1.02 [facility] Comment on above: Result Comment: The validity of the calculated GFR GFRAA in patients over 70 years has not been determined. Clinical correlation is essential. Performed By: #### L [id number], L500.4050, L100.0100, L500.4100 #### [facility] [address] [place], [address] EST GFR - AA 102 mL/min Normal >60 [facility] Comment on above: Result Comment: Afri can [place] GFR Calc Performed By: #### L [id number], L500.4050, L100.0100, L500.4100 #### [facility] [address] [place], [address] GAP 7 Normal 5-15 [facility] Comment on above: Performed By: #### L [id number], [id number], L100.0100, L500.4100 #### [facility] [address] [place], [address] GFR/1.73 sq M.predicted among non-blacks MDRD (S/P/Bld) [Vol rate/Area] 85 mL/min/{1.73_m2} Normal >60 [facility] Comment on above: Result Comment: Non- GFR Calc Performed By: #### L [id number], L500.4050, L100.0100, L500.4100 #### [facility] [address] [place], [address] Globulin (S) [Mass/Vol] 3.3 g/dL Normal 2.2-4.2 [facility] Comment on above: Performed By: #### L [id number], [id number], L100.0100, L500.4100 #### [facility] [address] [place], [address] Glucose [Mass/Vol] 98 mg/dL Normal 74-106 [facility] Comment on above: Performed By: #### L [id number], [id number], L100.0100, L500.4100 #### [facility] [address] [place], [address] Potassium [Moles/Vol] 4.3 mmol/L Normal 3.5-5.1 [facility] Comment on above: Performed By: #### L [id number], [id number], L100.0100, L500.4100 #### [facility] [address] [place], [address] Sodium [Moles/Vol] 138 mmol/L Normal 136-145 [facility] Comment on above: Performed By: #### L [id number], [id number], L100.0100, L500.4100 #### [facility] [address] [place], [address] T PROT 7.2 g/dL Normal 6.4-8.2 [facility] Comment on above: Performed By: #### L [id number], [id number], L100.0100, L500.4100 #### [facility] [address] [place], [address] Urea nitrogen [Mass/Vol] 19 mg/dL High 7-18 [facility] Comment on above: Performed By: #### L [id number], [id number], L100.0100, L500.4100 #### [facility] [address] [place], [address] Lipid Profileon 08-29-2024 Cholesterol [Mass/Vol] 230 mg/dL High 200 [facility] Comment on above: Result Comment: <200 mg/dL Desirable 200-240 mg/dL Borderline >240 mg/dL High Risk Performed By: #### L [id number], L500.4050, L100.0100, L500.4100 #### [facility] [address] [place], [address] Cholesterol in HDL [Mass/Vol] 51 mg/dL Normal [facility] Comment on above: Result Comment: The drugs N-Acetylcysteine and Metamizole may falsely depress this assay. Reference Range HDL <40 mg/dL Low HDL Cholesterol HDL >or= 60 mg/dL High HDL Cholesterol Performed By: #### L 501.9520, L500.4050, L100.0100, L500.4100 #### [facility] [address] [place], [address] Cholesterol in LDL [Mass/Vol] 145 mg/dL High 0-130 [facility] Comment on above: Performed By: #### L 501.9520, L500.4050, L100.0100, L500.4100 #### [facility] [address] [place], [address] Cholesterol in VLDL [Mass/Vol] 34 mg/dL Normal 5-40 [facility] Comment on above: Performed By: #### L 501.9520, L500.4050, L100.0100, L500.4100 #### [facility] [address] [place], [address] Triglyceride [Mass/Vol] 172 mg/dL Normal [facility] Comment on above: Result Comment: The drugs N-Acetylcysteine and Metamizole may falsely depress this assay. Serum Triglycerides Reference Interval Normal <150 mg/dL Borderline high 150 - 199 mg/dL High 200 - 499 mg/dL Very High > or = 500 mg/dL Performed By: #### L 501.9520, L500.4050, L100.0100, L500.4100 #### [facility] [address] [place], [address] Thyroid Stim Hormone (TSH)on 08-29-2024 TSH 1.850 uIU/mL Normal 0.358-3.740 [facility] Comment on above: Performed By: #### L 501.9520, L500.4050, L100.0100, L500.8269 #### [facility] [place], [address] ALLIED HEALTHon 05-16-2024 [facility] HNO ID: [id number] Author: MARGARET RIVERA CT Service: Radiology Author Type: Technologist Type: Allied Health Filed: 05/16/2024 07:35 Note Text: Radiology Service Progress Note PATIENT NAME: Deepa Jordan DATE OF SERVICE: May 16, 2024 TIME: 7:34 AM PATIENT IDENTITY VERIFICATION COMPLETED USING TWO (2) IDENTIFIERS: Name and Date of confirmed by patient verbally and Name and Date of confirmed by identification band. FALL SCREENING: Has the patient had 2 falls in the last year or 1 fall with injury or currently using an Ambulatory Assistive Device (Walker, Cane, Wheelchair, Crutches, etc.)? Emergency Room Patient: Screened in ED PATIENT GENDER DATA: Female. status: : No status: NO. PATIENT RELEVANT IMPLANT DATA REVIEWED: Not Applicable PATIENT PRESENTS WITH AN IMPLANTABLE OR ATTACHED REPORTING COORDINATOR: No RADIOLOGY DEPARTMENT: CT; Exam(s) Completed: Abdomen/Pelvis PERIPHERAL IV DATA: Not applicable SIGNED BY: MANN Harrell May 16, 2024 7:34 AM [facility] Bacteria Ur Culton Bacteria identified Cx Nom (U) ORGANISM ID: 1 >=100,000 CFU/ml Escherichia coli ORGANISM ID: 1 (ESCHERICHIA COLI) ANTIBIOTIC INTERPRETATION TREVER STATUS REFERENCE RANGE Ampicillin S <=2 F Susceptible <=8 , Intermediate >8 , Resistant >16 Cefazolin S <=4 F Susceptible 0-16 , Intermediate <0 or >16 , Resistant >16 For uncomplicated urinary tract infections, cefazolin results can be used to predict susceptibility or resistance to cephalexin. Ceftriaxone S <=1 F Susceptible <=1 , Intermediate >1 , Resistant >=4 Cefepime S <=1 F Susceptible <=2 , Susceptible-Dose Dependent >2 , Resistant >=16 Ertapenem S <=0.5 F Susceptible <=0.5 , Intermediate >.5 , Resistant >1 Meropenem S <=0.25 F Susceptible <=1 , Intermediate >1 , Resistant >2 Ampicillin/Sulbact S <=2 F Susceptible <=8 , Intermediate >8 , Resistant >16 Piperacillin/Tazobac S <=4 F Susceptible <16 , Susceptible-Dose Dependent >=16 , Resistant >=32 Gentamicin S <=1 F Susceptible <=2 , Intermediate >2 , Resistant >=8 Tobramycin S <=1 F Susceptible <4 , Intermediate >=4 , Resistant >=8 Trimeth sulfameth S <=20 F Susceptible <=40 , Resistant >40 Ciprofloxacin S <=0.25 F Susceptible <0.5 , Intermediate >=.5 , Resistant >=1 Nitrofurantoin S <=16 F Susceptible <=32 , Intermediate >32 , Resistant >64 Abnormal [facility] Comment on above: Performed By: #### 6 30-4 #### [facility] CLIA [id number] [address] [place], [place] [address] [address] [place] CBC W Auto Differential pane l (Bld)on 05-16-2024 Basophils (Bld) [#/Vol] 0.06 10*3/uL Normal <0.11 [facility] Comment on above: Order Comment: Speci men Type: BLOOD SPECIMEN Ordering Facility: [facility] Address: [address] [place] [address] Performed By: #### 5 7021-8 #### [facility] CLIA [id number] [address] [place] [address] [place] Basophils/100 WBC (Bld) 0.6 % Normal [facility] Comment on above: Order Comment: Speci men Type: BLOOD SPECIMEN Ordering Facility: [facility] Address: [address] [place] [address] Performed By: #### 5 7021-8 #### [facility] CLIA [id number] [address] [place] [address] [place] Differential cell count method Nom (Bld) Auto Normal [facility] Comment on above: Order Comment: Speci men Type: BLOOD SPECIMEN Ordering Facility: [facility] Address: [address] [place] [address] Performed By: #### 5 7021-8 #### [facility] CLIA [id number] [address] [place] [address] [place] Eosinophils (Bld) [#/Vol] 0.23 10*3/uL Normal <0.46 [facility] Comment on above: Order Comment: Speci men Type: BLOOD SPECIMEN Ordering Facility: [facility] Address: [address] [place] [address] Performed By: #### 5 7021-8 #### [facility] CLIA [id number] [address] Eosinophils/100 WBC (Bld) 2.1 % Normal [facility] Comment on above: Order Comment: Speci men Type: BLOOD SPECIMEN Ordering Facility: [facility] Address: [address] [place] [address] Performed By: #### 5 7021-8 #### [facility] CLIA [id number] [address] [place] [address] [place] Erythrocyte distribution width (RBC) [Ratio] 13.2 % Normal 11.5-15.0 [facility] Comment on above: Order Comment: Speci men Type: BLOOD SPECIMEN Ordering Facility: [facility] Address: [address] [place] [address] Performed By: #### 5 7021-8 #### [facility] CLIA [id number] [address] [place] [address] [place] Hematocrit (Bld) [Volume fraction] 40.8 % Normal 36.0-46.0 [facility] Comment on above: Order Comment: Speci men Type: BLOOD SPECIMEN Ordering Facility: [facility] Address: [address] [place] [address] Performed By: #### 5 7021-8 #### [facility] CLIA [id number] [address] [place] Hemoglobin (Bld) [Mass/Vol] 13.6 g/dL Normal 11.5-15.5 [facility] Comment on above: Order Comment: Speci men Type: BLOOD SPECIMEN Ordering Facility: [facility] Address: [address] [place] [address] Performed By: #### 5 7021-8 #### [facility] CLIA [id number] [address] [place] Immature granulocytes (Bld) [#/Vol] 0.12 10*3/uL High <0.10 [facility] Comment on above: Order Comment: Speci men Type: BLOOD SPECIMEN Ordering Facility: [facility] Address: [address] [place] [address] Performed By: #### 5 7021-8 #### [facility] CLIA [id number] [address] [place] Immature granulocytes/100 WBC (Bld) 1.1 % Normal [facility] Comment on above: Order Comment: Speci men Type: BLOOD SPECIMEN Ordering Facility: [facility] Address: [address] [place] [address] Performed By: #### 5 7021-8 #### [facility] CLIA [id number] [address] [place] [address] [place] Lymphocytes (Bld) [#/Vol] 3.83 10*3/uL Normal 1.00-4.00 [facility] Comment on above: Order Comment: Speci men Type: BLOOD SPECIMEN Ordering Facility: [facility] Address: [address] [place] [address] Performed By: #### 5 7021-8 #### [facility] CLIA [id number] [address] Lymphocytes/100 WBC (Bld) 35.6 % Normal [facility] Comment on above: Order Comment: Speci men Type: BLOOD SPECIMEN Ordering Facility: [facility] Address: [address] [place] [address] Performed By: #### 5 7021-8 #### [facility] CLIA [id number] [address] MCH (RBC) [Entitic mass] 29.0 pg Normal 26.0-34.0 [facility] Comment on above: Order Comment: Speci men Type: BLOOD SPECIMEN Ordering Facility: [facility] Address: [address] [place] [address] Performed By: #### 5 7021-8 #### [facility] CLIA [id number] [address] [place] MCHC (RBC) [Mass/Vol] 33.3 g/dL Normal 30.5-36.0 [facility] Comment on above: Order Comment: Speci men Type: BLOOD SPECIMEN Ordering Facility: [facility] Address: [address] [place] [address] Performed By: #### 5 7021-8 #### [facility] CLIA [id number] [address] MCV (RBC) [Entitic vol] 87.0 fL Normal 80.0-100.0 [facility] Comment on above: Order Comment: Speci men Type: BLOOD SPECIMEN Ordering Facility: [facility] Address: [address] [place] [address] Performed By: #### 5 7021-8 #### [facility] CLIA [id number] [address] Monocytes (Bld) [#/Vol] 1.00 10*3/uL High <0.87 [facility] Comment on above: Order Comment: Speci men Type: BLOOD SPECIMEN Ordering Facility: [facility] Address: [address] [place] [address] Performed By: #### 5 7021-8 #### [facility] CLIA [id number] [address] [place] [address] [place] Monocytes/100 WBC (Bld) 9.3 % Normal [facility] Comment on above: Order Comment: Speci men Type: BLOOD SPECIMEN Ordering Facility: [facility] Address: [address] [place] [address] Performed By: #### 5 7021-8 #### [facility] CLIA [id number] [address] [place] [address] [place] Neutrophils (Bld) [#/Vol] 5.53 10*3/uL Normal 1.45-7.50 [facility] Comment on above: Order Comment: Speci men Type: BLOOD SPECIMEN Ordering Facility: [facility] Address: [address] [place] [address] Performed By: #### 5 7021-8 #### [facility] CLIA [id number] [address] [place] [address] [place] Neutrophils/100 WBC (Bld) 51.3 % Normal [facility] Comment on above: Order Comment: Speci men Type: BLOOD SPECIMEN Ordering Facility: [facility] Address: [address] [place] [address] Performed By: #### 5 7021-8 #### [facility] CLIA [id number] [address] [place] [address] [place] Nucleated RBC (Bld) [#/Vol] 10*3/uL Normal <0.01 [facility] Comment on above: Order Comment: Speci men Type: BLOOD SPECIMEN Ordering Facility: [facility] Address: [address] [place] [address] Performed By: #### 5 7021-8 #### [facility] CLIA [id number] [address] [place] [address] [place] Nucleated RBC/100 WBC (Bld) [Ratio] 0.0 /100 WBC Normal [facility] Comment on above: Order Comment: Speci men Type: BLOOD SPECIMEN Ordering Facility: [facility] Address: [address] [place] [address] Performed By: #### 5 7021-8 #### [facility] CLIA [id number] [address] [place] [address] [place] Platelet mean volume (Bld) [Entitic vol] 9.9 fL Normal 9.0-12.7 [facility] Comment on above: Order Comment: Speci men Type: BLOOD SPECIMEN Ordering Facility: [facility] Address: [address] [place] [address] Performed By: #### 5 7021-8 #### [facility] CLIA [id number] [address] [place] [address] [place] Platelets (Bld) [#/Vol] 289 10*3/uL Normal 150-400 [facility] Comment on above: Order Comment: Speci men Type: BLOOD SPECIMEN Ordering Facility: [facility] Address: [address] [place] [address] Performed By: #### 5 7021-8 #### [facility] CLIA [id number] [address] [place] [address] [place] RBC (Bld) [#/Vol] 4.69 10*6/uL Normal 3.90-5.20 [facility] Comment on above: Order Comment: Speci men Type: BLOOD SPECIMEN Ordering Facility: [facility] Address: [address] [place] [address] Performed By: #### 5 7021-8 #### [facility] CLIA [id number] [address] [place] [address] [place] WBC (Bld) [#/Vol] 10.77 10*3/uL Normal 3.70-11.00 [facility] Comment on above: Order Comment: Speci men Type: BLOOD SPECIMEN Ordering Facility: [facility] Address: [address] [place] [address] Performed By: #### 5 7021-8 #### [facility] CLIA [id number] [address] [place] [address] [place] [address] ABD/PEL W IVCONon 05-16- 024 CT ABD/PEL W IVCON * * *Final Report* * * DATE OF EXAM: May 16 2024 7:40AM [facility] 0530 - CT ABD/PEL W IVCON / PROCEDURE REASON: Abdominal abscess/infection suspected * * * * Physician Interpretation * * * * EXAMINATION: CT ABDOMEN AND PELVIS WITH IV CONTRAST PATIENT/TECHNOLOGIST PROVIDED HISTORY: Lower abd pain for the last week. N/V last week. CLINICAL HISTORY: 68 years old Female with Abdominal abscess/infection suspected TECHNIQUE: CT of the abdomen and pelvis was performed using standard technique, scanning from just above the dome of the diaphragm to the symphysis pubis. MQ: CTAP_3 Contrast: IV: 100 ml of Omnipaque 350 Oral: None. CT Radiation dose: Integrated Dose-length product (DLP) for this visit = 294 mGy*cm. CT Dose Reduction Employed: Automated exposure control(AEC) and iterative recon COMPARISON: CT 12/16/2017 RESULT: Liver: No mass. Biliary: No bile duct dilation. Gallbladder is unremarkable. Spleen: Subcentimeter hypoattenuating lesion in the lower spleen (2:29) is unchanged since 12/16/2017 and likely benign angiomatous lesion. No splenomegaly. Pancreas: No mass or duct dilation. Adrenals: No mass. Kidneys: Large 11 cm simple appearing LEFT mid-lower pole cyst which measured [address] 12/16/2017. Additional LEFT parapelvic cysts. No calculus or hydronephrosis. GI tract: No dilation or wall thickening. Normal appendix. Colonic diverticulosis. Mild pericolonic stranding in the distal descending colon (2:79-86). No fluid collection. Lymph nodes: No abdominal or pelvic lymphadenopathy. Mesentery/Peritoneum : No ascites or mass. Retroperitoneum: No mass. Vasculature: - Abdominal aorta and iliac arteries: Atherosclerotic calcifications without aneurysm. - Celiac and SMA: Patent without stenosis. - Portal venous system (SMV, splenic vein, portal vein and branches): Patent. - Hepatic veins: Incompletely opacified, likely due to early phase of enhancement. Pelvis: No mass, ascites or fluid collection. Hysterectomy. Bones/Soft Tissues: Osteopenia. Facet degenerative changes in the lumbar spine. Lower thorax: Emphysema. Small calcified granuloma in the RIGHT lobe. No consolidation. No pleural effusion. Localizer images: No additional findings. IMPRESSION: Mild distal descending colonic diverticulitis. [employer] Shared [employer] Consultant: DARSHAN Transcribe Date/Time: May 16 2024 8:14A Dictated by : HEIDY GARZA DO This examination was interpreted and the report reviewed and electronically signed by: HEIDY GARZA DO on May 16 2024 8:27AM EST [id number] CN Normal [facility] Comprehensive metabolic 2000 panelon 05-16-2024 Albumin [Mass/Vol] 4.0 g/dL Normal 3.9-4.9 [facility] Comment on above: Order Comment: Speci men Type: BLOOD SPECIMEN Ordering Facility: [facility] Address: [address] [place] [address] Performed By: #### 2 4323-8, 3040-3 #### [facility] CLIA [id number] [address] [place] [address] [place] ALP [Catalytic activity/Vol] 110 U/L Normal 34-123 [facility] Comment on above: Order Comment: Speci men Type: BLOOD SPECIMEN Ordering Facility: [facility] Address: [address] [place] [address] Performed By: #### 2 4323-8, 3040-3 #### [facility] CLIA [id number] [address] ALT [Catalytic activity/Vol] 16 U/L Normal 7-38 [facility] Comment on above: Order Comment: Speci men Type: BLOOD SPECIMEN Ordering Facility: [facility] Address: [address] [place] [address] Performed By: #### 2 4323-8, 3040-3 #### [facility] CLIA [id number] [address] [place] [facility] Anion gap [Moles/Vol] 9 mmol/L Normal 8-15 [facility] Comment on above: Order Comment: Speci men Type: BLOOD SPECIMEN Ordering Facility: [facility] Address: [address] [place] [address] Performed By: #### 2 4323-8, 3040-3 #### [facility] CLIA [id number] [address] AST [Catalytic activity/Vol] 16 U/L Normal 13-35 [facility] Comment on above: Order Comment: Speci men Type: BLOOD SPECIMEN Ordering Facility: [facility] Address: [address] [place] [address] Performed By: #### 2 4323-8, 3040-3 #### [facility] CLIA [id number] [address] [place] [address] [place] Bilirubin [Mass/Vol] 0.2 mg/dL Normal 0.2-1.3 [facility] Comment on above: Order Comment: Speci men Type: BLOOD SPECIMEN Ordering Facility: [facility] Address: [address] [place] [address] Performed By: #### 2 4323-8, 3040-3 #### [facility] CLIA [id number] [address] [place] [address] [place] Calcium [Mass/Vol] 8.6 mg/dL Normal 8.5-10.2 [facility] Comment on above: Order Comment: Speci men Type: BLOOD SPECIMEN Ordering Facility: [facility] Address: [address] [place] [address] Performed By: #### 2 4323-8, 0-3 #### [facility] CLIA [id number] [address] [place] [address] [place] Chloride [Moles/Vol] 105 mmol/L Normal 98-107 [facility] Comment on above: Order Comment: Speci men Type: BLOOD SPECIMEN Ordering Facility: [facility] Address: [address] [place] [address] Performed By: #### 2 4323-8, 0-3 #### [facility] CLIA [id number] [address] [place] [address] [place] CO2 [Moles/Vol] 25 mmol/L Normal 22-30 [facility] Comment on above: Order Comment: Speci men Type: BLOOD SPECIMEN Ordering Facility: [facility] Address: [address] [place] [address] Performed By: #### 2 4323-8, 3040-3 #### [facility] CLIA [id number] [address] [place] [address] [place] Creatinine [Mass/Vol] 0.61 mg/dL Normal 0.58-0.96 [facility] Comment on above: Order Comment: Speci men Type: BLOOD SPECIMEN Ordering Facility: [facility] Address: [address] [place] [address] Performed By: #### 2 4323-8, 3040-3 #### [facility] CLIA [id number] [address] [place] [address] [place] Creatinine and Glomerular filtration rate.predicted panel (S/P/Bld) 97 mL/min/1.73m??? Normal >=60 [facility] Comment on above: Order Comment: Jarrod pinon Type: BLOOD SPECIMEN Ordering Facility: [facility] Address: [address] [place] [address] Result Comment: Zeynep mated Glomerular Filtration Rate (eGFR) is calculated using the 2020 CKD-EPI creatinine equation. This equation utilizes serum creatinine, sex, and age as parameters. The creatinine assay has traceable calibration to isotope dilution-mass spectrometry. Refer to KDIGO guidelines for clinical interpretation. In patients with unstable renal function, e.g. those with acute kidney injury, the eGFR may not accurately reflect actual GFR. Performed By: #### 2 4323-8, 0-3 #### [facility] CLIA [id number] [address] [place] [address] [place] Glucose [Mass/Vol] 111 mg/dL High 74-99 [facility] Comment on above: Order Comment: Jarrod pinon Type: BLOOD SPECIMEN Ordering Facility: [facility] Address: [address] [place] [address] Result Comment: The [place] Diabetes [employer] (ADA) provides guidance for cutoff values for fasting glucose and random glucose. The ADA defines fasting as no caloric intake for at least 8 hours. Fasting plasma glucose results between 100 to 125 mg/dL indicate increased risk for diabetes (prediabetes). Fasting plasma glucose results greater than or equal to 126 mg/dL meet the criteria for diagnosis of diabetes. In the absence of unequivocal hyperglycemia, results should be confirmed by repeat testing. In a patient with classic symptoms of hyperglycemia or hyperglycemic crisis, random plasma glucose results greater than or equal to 200 mg/dL meet the criteria for diagnosis of diabetes. Reference: Standards of Medical Care in Diabetes 2016, [place] [employer]. Diabetes Care. 2016.39(Suppl 1). Performed By: #### 2 4323-8, 0-3 #### [facility] CLIA [id number] [address] [place] [address] [place] Potassium [Moles/Vol] 4.4 mmol/L Normal 3.7-5.1 [facility] Comment on above: Order Comment: Speci men Type: BLOOD SPECIMEN Ordering Facility: [facility] Address: [address] [place] [address] Performed By: #### 2 4323-8, 3040-3 #### [facility] CLIA [id number] [address] [place] [address] [place] Protein [Mass/Vol] 6.9 g/dL Normal 6.3-8.0 [facility] Comment on above: Order Comment: Speci men Type: BLOOD SPECIMEN Ordering Facility: [facility] Address: [address] [place] [address] Performed By: #### 2 4323-8, 3040-3 #### [facility] CLIA [id number] [address] Sodium [Moles/Vol] 139 mmol/L Normal 136-144 [facility] Comment on above: Order Comment: Speci men Type: BLOOD SPECIMEN Ordering Facility: [facility] Address: [address] [place] [address] Performed By: #### 2 4323-8, 3040-3 #### [facility] CLIA [id number] [address] Urea nitrogen [Mass/Vol] 13 mg/dL Normal 7-21 [facility] Comment on above: Order Comment: Speci men Type: BLOOD SPECIMEN Ordering Facility: [facility] Address: [address] [place] [address] Performed By: #### 2 4323-8, 3040-3 #### [facility] CLIA [id number] [address] [place] ED NOTEon 05-16-2024 ED NOTE HNO ID: [id number] Author: KUMAR CASPER RN Service: Nursing Author Type: Registered Nurse Type: ED Notes Filed: 05/16/2024 10:10 Note Text: Pt completed IV antibiotics. VSS. IV removed. Discussed discharge instructions and medications, pt verbalized understanding. Pt ambulated to leave with steady gait. [facility] ED NOTE HNO ID: [id number] Author: KUMAR CASPER RN Service: Nursing Author Type: Registered Nurse Type: ED Notes Filed: 05/16/2024 07:51 Note Text: Up to void. [facility] ED NOTE HNO ID: [id number] Author: KUMAR CASPER RN Service: Nursing Author Type: Registered Nurse Type: ED Notes Filed: 05/16/2024 07:28 Note Text: Assumed care of patient. [facility] ED PROV NOTEon 05-16-2024 ED PROV NOTE HNO ID: [id number] Author: ISELA PINO MD Service: ? Author Type: Physician Type: ED Provider Notes Filed: 05/16/2024 08:52 Note Text: ED CONTINUATION OF CARE NOTE Code Status: Full Code Assumed care from: Dr. Valenzuela Presentation / Findings / Interventions / Plan / Items to Follow Up: Patient's abdominal pain is mild. Repeat abdominal exam is soft minimal tenderness in the lower abdomen. Cell count is normal. Renal function is normal. CT shows mild diverticulitis as well as a renal cyst that is slightly grown since 2018. Patient is less these findings. She has not vomited since 5 days ago. She is requesting to go home. We did discuss admission however she would rather go home. She will be given a dose of IV antibiotics Rocephin and Flagyl and then discharged home on Omnicef and Flagyl. Patient is advised to return with any worsening symptoms or concerns Patient is discharged home in stable condition Clinical Impressions as of 05/16/24 0851 Diverticulitis Renal cyst Medical Decision Making SIGNATURE: Isela Pino MD PATIENT NAME: Deepa Jordan DATE: May 16, 2024 TIME: 8:51 AM PAGER/CONTACT #: ISELA PINO 05/16/24 0852 [facility] ED PROV NOTE HNO ID: [id number] Author: MALLY VALENZUELA MD Service: Emergency Medicine Author Type: Physician Type: ED Provider Notes Filed: 05/16/2024 06:23 Note Text: ED Provider Note Patient Name: Deepa Jordan : 1955 SERVICE DATE: 05/16/24 History Patient presents with: Abdominal Pain: Lower abd pain for the last week. N/V last week. Ms. Jordan is a 68 yo F s/p DEJAN/SBO (2 separate surgeries), chris vallejo, has had many UTIs, now presents ~ 1 wk after diarrhea/vomiting abruptly started Wednesday morning w/ suprapubic discomfort after generalized discomfort x ~ 24 hrs. Urinary frequency, no dysuria. No hematuria. Mild nausea now, diarrhea abated. Does feel somewhat like UTI. PAST MEDICAL HISTORY Diagnosis Date Allergy-induced asthma Anxiety Arthritis FHx: allergies Batsheva's disease Heartburn Hypertension Obesity Other and unspecified hyperlipidemia PAST SURGICAL HISTORY Procedure Laterality Date PAST SURGICAL HISTORY OF chris vallejo PAST SURGICAL HISTORY OF liposuction PAST SURGICAL HISTORY OF ovaries removed TOTAL ABDOMINAL HYSTERECT W/WO RMVL TUBE OVARY FAMILY HISTORY Problem Relation Age of Onset other (crohn's disease) Daughter Stroke Mother other (Other- blood clots) Mother Heart disease Father Social History Tobacco Use Smoking status: Former Packs/day: 1.00 Years: 40.00 Additional pack years: 0.00 Total pack years: 40.00 Types: Cigarettes Quit date: 2012 Years since quittin.5 Smokeless tobacco: Never Tobacco comments: 43 years total average 1ppd Substance and Sexual Activity Alcohol use: No Comment: Once a year on her birthday Drug use: No Sexual activity: Not on file ALLERGIES No Known Allergies Review of Systems Constitutional: Negative for chills and fever. HENT: Negative for ear pain, rhinorrhea and sore throat. Respiratory: Negative for cough and shortness of breath. Cardiovascular: Negative for chest pain and leg swelling. Gastrointestinal: Positive for abdominal pain, diarrhea, nausea and vomiting. Genitourinary: Positive for frequency. Negative for dysuria, flank pain and hematuria. Musculoskeletal: Negative for back pain. Skin: Negative for rash. Neurological: Negative for speech difficulty, weakness, light-headedness, numbness and headaches. Psychiatric/Behavior al: Negative for hallucinations and suicidal ideas. Physical Exam Vitals [05/16/24 0607] BP Pulse Temp Temp src Resp SpO2 Weight Height 135/61 61 36.7 ?C (98.1 ?F) Oral 16 98 % 78.3 kg (172 lb 9.9 oz) -- Physical Exam Vitals and nursing note reviewed. Constitutional: General: She is not in acute distress. Appearance: She is well-developed. HENT: Head: Normocephalic and atraumatic. Eyes: Pupils: Pupils are equal, round, and reactive to light. Neck: Trachea: No tracheal deviation. Cardiovascular: Rate and Rhythm: Normal rate. Heart sounds: No murmur heard. No friction rub. No gallop. Pulmonary: Effort: Pulmonary effort is normal. No respiratory distress. Breath sounds: Normal breath sounds. No wheezing or rales. Abdominal: General: Bowel sounds are normal. There is no distension. Palpations: Abdomen is soft. Tenderness: There is abdominal tenderness. There is no guarding or rebound. Comments: Suprapubic tenderness Musculoskeletal: General: Normal range of motion. Cervical back: Normal range of motion and neck supple. Lymphadenopathy: Cervical: No cervical adenopathy. Skin: General: Skin is warm and dry. Findings: No erythema. Neurological: Mental Status: She is alert and oriented to person, place, and time. Cranial Nerves: No cranial nerve deficit. Motor: No abnormal muscle tone. Psychiatric: Behavior: Behavior normal. Thought Content: Thought content normal. Judgment: Judgment normal. Diagnostic Testing ED Labs Ordered and Reviewed - No data to display Procedures ED Course / Clinical Impression MDM / Disposition / Plan Ms. Jordan is a 68 yo F presenting w/ ? UTI vs diverticulitis or other abd pathology. Will do CT, labs, analgesics, antiemetics, reassess after. Differential Diagnoses - UTI, recent ? gastroenteritis or food poisoning is more likely for the following reason(s): suggested by HANDP - urolithiasis, diverticulitis, other abd pathology is less likely for the following reason(s): doing work up Management Radiology Reports CT ABD/PEL W IVCON (Results Pending) All Labs ED Labs Ordered and Reviewed - No data to display Meds Given During Visit ED Medication Administration from 05/16/2024 0556 to 05/16/2024 0623 None Additional Tests or Interventions Additional tests/procedures: IV fluids IV fluids were given for the following reasons fluid resuscitation. Contributing Factors Chronic conditions affecting care: hypertension Chronic conditions addressed by: monitoring Transfer of Care The patient's care was transferred over to Dr. Schaeffer (more content not included)... Normal [facility] Lipase SerPl-cCncon 05-16-20 24 Lipase [Catalytic activity/Vol] 23 U/L Normal 16-61 [facility] Comment on above: Order Comment: Jarrod pinon Type: BLOOD SPECIMEN Ordering Facility: [facility] Address: [address] [place] [address] Performed By: #### 2 4323-8, 3040-3 #### [facility] CLIA [id number] [address] [place] PT panel Coag (PPP)on 2023 INR Coag (PPP) [Relative time] 0.9 {INR} Normal 0.9-1.3 [facility] Comment on above: Order Comment: Jarrod pinon Type: BLOOD SPECIMEN Ordering Facility: [facility] Address: [address] [place] [address] Result Comment: Lisbeth min K Antagonist (VKA) Therapeutic Range: INR 2 to 3 (Target INR of 2.5) Note: For patients treated with VKA drugs, such as warfarin, the [employer] 2012 Guideline recommends a therapeutic INR range of 2 to 3 (target INR of 2.5). This recommendation includes high-risk patients with antiphospholipid syndrome with previous arterial or venous thromboembolism, current-generation mechanical or bioprosthetic aortic heart valve replacement. Note: Patients with mechanical aortic valve replacement and additional risk factors for thromboembolic events (atrial fibrillation, previous thromboembolism, LV dysfunction, hypercoagulable conditions) or an older generation mechanical AVR (i.e., ball in-Cage) or any mechanical MVR should have a INR therapeutic range of 2.5 to 3.5 (target INR of 3). Amairani GH, et al. Chest 2012, 141:7S-47S Terri RA, et al. [facility] 2017, 70: 252-289 Performed By: #### 3 4528-0, 63403-6 #### [facility] CLIA [id number] [address] [place] PT Coag (PPP) [Time] 10.2 s Normal 9.7-13.0 [facility] Comment on above: Order Comment: Jarrod pinon Type: BLOOD SPECIMEN Ordering Facility: [facility] Address: [address] [place] [address] Performed By: #### 3 4528-0, 08342-1 #### [facility] CLIA [id number] [address] Urinalysis complete panel (U )on 05-16-2024 Bacteria LM.HPF (Urine sed) [#/Area] Few Abnormal None Seen [facility] Comment on above: Order Comment: Speci men Type: URINE SPECIMEN Ordering Facility: [facility] Address: [address] [place] [address] Performed By: #### 2 4356-8 #### [facility] CLIA [id number] [address] Bilirubin Ql (U) Negative Normal Negative [facility] Comment on above: Order Comment: Speci men Type: URINE SPECIMEN Ordering Facility: [facility] Address: [address] [place] [address] Performed By: #### 2 4356-8 #### [facility] CLIA [id number] [address] Clarity (Unsp spec) Clear Normal Clear [facility] Comment on above: Order Comment: Speci men Type: URINE SPECIMEN Ordering Facility: [facility] Address: [address] [place] [address] Performed By: #### 2 4356-8 #### [facility] CLIA [id number] [address] Color (U) Yellow Normal Yellow [facility] Comment on above: Order Comment: Speci men Type: URINE SPECIMEN Ordering Facility: [facility] Address: [address] [place] [address] Performed By: #### 2 4356-8 #### [facility] CLIA [id number] [address] Epithelial cells LM.HPF (Urine sed) [#/Area] Moderate Normal [facility] Comment on above: Order Comment: Speci men Type: URINE SPECIMEN Ordering Facility: [facility] Address: [address] [place] [address] Performed By: #### 2 4356-8 #### [facility] CLIA [id number] [address] [place] Glucose Test strip (U) [Mass/Vol] Negative Normal Negative [facility] Comment on above: Order Comment: Speci men Type: URINE SPECIMEN Ordering Facility: [facility] Address: [address] [place] [address] Performed By: #### 2 4356-8 #### [facility] CLIA [id number] [address] [place] [address] [place] Hemoglobin Ql (U) Negative Normal Negative [facility] Comment on above: Order Comment: Speci men Type: URINE SPECIMEN Ordering Facility: [facility] Address: [address] [place] [address] Performed By: #### 2 4356-8 #### [facility] CLIA [id number] [address] [place] Ketones Ql (U) Negative Normal Negative [facility] Comment on above: Order Comment: Speci men Type: URINE SPECIMEN Ordering Facility: [facility] Address: [address] [place] [address] Performed By: #### 2 4356-8 #### [facility] CLIA [id number] [address] Leukocyte esterase Test strip Ql (U) Negative Normal Negative [facility] Comment on above: Order Comment: Speci men Type: URINE SPECIMEN Ordering Facility: [facility] Address: [address] [place] [address] Performed By: #### 2 4356-8 #### [facility] CLIA [id number] [address] [place] Nitrite Ql (U) Positive Abnormal Negative [facility] Comment on above: Order Comment: Speci men Type: URINE SPECIMEN Ordering Facility: [facility] Address: [address] [place] [address] Performed By: #### 2 4356-8 #### [facility] CLIA [id number] [address] [place] pH (U) 6.5 [pH] Normal 5.0-8.0 [facility] Comment on above: Order Comment: Speci men Type: URINE SPECIMEN Ordering Facility: [facility] Address: [address] [place] [address] Performed By: #### 2 4356-8 #### [facility] CLIA [id number] [address] Protein (U) [Mass/Vol] Negative Normal Negative [facility] Comment on above: Order Comment: Speci men Type: URINE SPECIMEN Ordering Facility: [facility] Address: [address] [place] [address] Performed By: #### 2 4356-8 #### [facility] CLIA [id number] [address] RBC LM.HPF (Urine sed) [#/Area] 3-5 /HPF Abnormal 0-3 /HPF [facility] Comment on above: Order Comment: Speci men Type: URINE SPECIMEN Ordering Facility: [facility] Address: [address] [place] [address] Performed By: #### 2 4356-8 #### [facility] CLIA [id number] [address] Specific gravity (U) [Rel density] 1.010 Normal 1.005-1.030 [facility] Comment on above: Order Comment: Speci men Type: URINE SPECIMEN Ordering Facility: [facility] Address: [address] [place] [address] Performed By: #### 2 4356-8 #### [facility] CLIA [id number] [address] Urobilinogen Ql (U) 0.2 EU/dL Normal 0.2-1.0 EU/dL [facility] Comment on above: Order Comment: Speci men Type: URINE SPECIMEN Ordering Facility: [facility] Address: [address] [place] [address] Performed By: #### 2 4356-8 #### [facility] CLIA [id number] [address] WBC LM.HPF (Urine sed) [#/Area] 0-5 /HPF Normal 0-5 /HPF [facility] Comment on above: Order Comment: Speci men Type: URINE SPECIMEN Ordering Facility: [facility] Address: [address] [place] [address] Performed By: #### 2 4356-8 #### [facility] CLIA [id number] [address] [place] [address] [place] aPTT PPPon 05-16-2024 aPTT Coag (PPP) [Time] 30.8 s Normal 23.0-32.4 [facility] Comment on above: Order Comment: Speci men Type: BLOOD SPECIMEN Ordering Facility: [facility] Address: [address] [place] [address] Performed By: #### 3 4528-0, 35441-1 #### [facility] CLIA [id number] [address] [place] [address] [place] [facility] Bladder[facility] 024 Kidney and Bladder [facility] Imaging Services [address] [place] [id number] Kidney and Bladder MR#: [id number] Acct: [id number] Name: DEEPA JORDAN MARCH Rep #: [id number] : 1955 F 68 From: Rafita Chávez PCP: NISREEN Butts Status: REG CLI Study: Kidney and Bladder Date of Exam: 02/02/24 Exam# [id number] Ordering Dr: Tati Rivera MD [id number] PROCEDURE: RENAL ULTRASOUND - COMPLETE REASON FOR EXAM: Female, 68 years old. UTI TECHNIQUE: Ultrasound evaluation of the bilateral kidneys was performed with real-time ultrasonography and static grayscale imaging. COMPARISON: None. FINDINGS: RIGHT KIDNEY: Normal location of the right kidney which is normal in size. The right kidney measures 10.8 x 6.8 x 4.7 cm. There is a normal cortex of the right kidney. The renal cortex measures 1.4 cm. There is no right renal mass or cyst. There are no right renal calculi. There is no right hydronephrosis. DISTAL RIGHT URETER: There is non-visualization of the distal right ureter. There is no demonstrated right ureterovesical junction calculus. There is a visualized right ureteral jet. LEFT KIDNEY: Normal location of the left kidney which is normal in size. The left kidney measures 14.2 x 5.8 x 5.4 cm. There is a normal cortex of the left kidney. The renal cortex measures 1.6 cm. There is a large cyst in the lower pole of the left kidney measuring about 10 x 12 x 6 cm There are no left renal calculi. There is no left hydronephrosis. DISTAL LEFT URETER: There is non-visualization of the distal left ureter. There is no demonstrated left ureterovesical junction calculus. There is a visualized left ureteral jet. BLADDER: The distended urinary bladder has a volume of 177 ml. There is a normal wall thickness of the distended urinary bladder. There is no demonstrated mass within the urinary bladder. There is no demonstrated bladder calculi. US/Kidney and Bladder IMPRESSION: 1. No evidence of hydronephrosis. 2. Large left renal cyst. Electronically Signed: Rafita Ivan MD at 13:58 EDT , CC: NISREEN Ackerman; Dr. Tati Rivera MD [facility] [employer] Consultant: Signed Normal [facility] - Chemistry and C hemistry - challengeOrdered By: Elmo Ackerman on 04-22-2023 Free T4 [Mass/Vol] 0.73 ng/dL 0.76-1.46 [facility] No Panel InformationOrdered By: Elmo Ackerman on 04-22-2023 Thyroid Stimulating Hormone (TSH) 1.50 uIU/mL 0.358-3.74 [facility] Absolute lymphocyte countOrd ered By: Elmo Ackerman on 03-17-2023 Lymphocytes Auto (Unsp spec) [#/Vol] 3.95 10*3/uL 0.83-4.51 [facility] Basophil percentageOrdered B y: Elmo Ackerman on 03-17-2023 Basophils/100 WBC (Bld) 0.6 % 0-1 [facility] Bilirubin [Mass/Vol] 0.30 mg/dL 0.20-1.00 [facility] Comment on above: For patients on eltr ombopag therapy, use of Dimension Kevin TBIL is not recommended. Chloride [Moles/Vol] 108 mmol/L 98-107 [facility] Cholesterol [Mass/Vol] 235 mg/dL <200 [facility] Comment on above: <200 mg/dL Desirable 200-240 mg/dL Borderline >240 mg/dL High Risk Eosinophils/100 WBC (Bld) 2.7 % 0-5 [facility] Glucose [Mass/Vol] 104 mg/dL 74-106 [facility] Comment on above: Fasting Glucose resu lt from 100 to 125 mg/dL suggests IMPAIRED HOMEOSTASIS per A.D.A. criteria. Neutrophils (Bld) [#/Vol] 5.7 10*3/uL 2.0-7.7 [facility] Neutrophils/100 WBC (Bld) 52.3 % 47-70 [facility] Potassium [Moles/Vol] 4.4 mmol/L 3.5-5.1 [facility] Protein [Mass/Vol] 7.5 g/dL 6.4-8.2 [facility] Sodium [Moles/Vol] 140 mmol/L 136-145 [facility] Triglyceride [Mass/Vol] 226 mg/dL <199 [facility] Comment on above: The drugs N-Acetylcy steine and Metamizole may falsely depress this assay.Serum Triglycerides Reference Interval Normal <150 mg/dL Borderline high 150 - 199 mg/dL High 200 - 499 mg/dL Very High > or = 500 mg/dL WBC (Bld) [#/Vol] 10.8 10*3/uL 4.4-11.0 [facility] Blood erythrocytes count (nu mber/volume)Ordered By: Elmo Ackerman on 03-17-2023 RBC (Bld) [#/Vol] 4.66 10*6/uL 4.2-5.4 [facility] Blood hemoglobin measurement (mass/volume)Ordered By: Elmo Ackerman on 03-17-2023 Hemoglobin (Bld) [Mass/Vol] 13.7 g/dL 12.0-15.0 [facility] Blood lymphocytes/100 leukoc ytesOrdered By: Elmo Ackerman on 03-17-2023 Lymphocytes/100 WBC (Bld) 36.4 % 19-41 [facility] Blood monocytes/100 leukocyt esOrdered By: Elmo Ackerman on 03-17-2023 Monocytes/100 WBC (Bld) 7.7 % 0-10 [facility] Blood platelet mean volumeOr dered By: Elmo Ackerman on 03-17-2023 Platelet mean volume (Bld) [Entitic vol] 10.4 fL 6.2-12.0 [facility] Determination of erythrocyte mean corpuscular volume (MCV)Ordered By: Elmo Ackerman on 03-17-2023 MCV (RBC) [Entitic vol] 88.0 fL 81-99 [facility] Hematocrit Auto (Bld) [Volum e fraction]Ordered By: Elmo Ackerman on 03-17-2023 Hematocrit (Bld) [Volume fraction] 41.0 % 37-47 [facility] - Chemistry and C hemistry - challengeOrdered By: Elmo Ackerman on 03-17-2023 ALP [Catalytic activity/Vol] 99 U/L 45-117 [facility] ALT [Catalytic activity/Vol] 25 U/L 13-56 [facility] CO2 [Moles/Vol] 25.0 mmol/L 21.0-32.0 [facility] Globulin (S) [Mass/Vol] 3.5 g/dL 2.2-4.2 [facility] Urea nitrogen/Creatinine [Mass ratio] 26.3 mg/mg 10-20 [facility] - Hematology and Cell countsOrdered By: Elmo Ackerman on 03-17-2023 Erythrocyte distribution width (RBC) [Entitic vol] 43.0 fL 35.1-43.9 [facility] Erythrocyte distribution width (RBC) [Ratio] 13.3 % 11.6-14.6 [facility] Immature granulocytes/100 WBC (Bld) 0.300 % 0.0-0.9 [facility] Comment on above: IG% - Immature Granu locytes (promyelocytes, myelocytes and metamyelocytes) > 1% indicates that a LEFT SHIFT is Present. MCH (RBC) [Entitic mass] 29.4 pg 27.0-32.0 [facility] Nucleated RBC/100 WBC (Bld) [Ratio] 0 % 0-5 [facility] Auto (RBC) [Mass/Vol]Or dered By: Elmo Ackerman on 03-17-2023 MCHC (RBC) [Mass/Vol] 33.4 g/dL 32-36 [facility] No Panel InformationOrdered By: Elmo Ackerman on 03-17-2023 Estimated GFR (MDRD) Amer 61 mL/min >60 [facility] Comment on above: GFR Calc Estimated GFR (MDRD) Non-Af Amer 50 mL/min >60 [facility] Comment on above: Non- GFR Calc Thyroid Stimulating Hormone (TSH) 4.26 uIU/mL 0.358-3.74 [facility] Platelets bldOrdered By: Adam Ackerman on 03-17-2023 Platelets (Bld) [#/Vol] 291 10*3/uL 150-450 [facility] Serum Arcelia James virus cap maureen IgG antibody assay (units/volume)Ordered By: Elmo Ackerman on 03-17-2023 EBV capsid IgG Qn (S) [arb'U]/mL 0.0-17.9 [facility] Comment on above: Negative <18.0 Equiv ocal 18.0 - 21.9 Positive >21.9 Serum Arcelia James virus cap maureen IgM antibody assay (units/volume)Ordered By: Elmo Ackerman on 03-17-2023 EBV capsid IgM Qn (S) [arb'U]/mL 0.0-35.9 [facility] Comment on above: Negative <36.0 Equiv ocal 36.0 - 43.9 Positive >43.9 Serum Arcelia James virus nuc lear IgG antibody assay (units/volume)Ordered By: Elmo Ackerman on 03-17-2023 EBV nuclear IgG Qn (S) 286.0 U/mL 0.0-17.9 [facility] Comment on above: Negative <18.0 Equiv ocal 18.0 - 21.9 Positive >21.9 Serum or plasma albumin tom urement (mass/volume)Ordered By: Elmo Ackerman on 03-17-2023 Albumin [Mass/Vol] 4.0 g/dL 3.2-5.0 [facility] Serum or plasma albumin/glob ulin mass ratioOrdered By: Elmo Ackerman on 03-17-2023 Albumin/Globulin [Mass ratio] 1.1 {ratio} 0.9-2.4 [facility] Serum or plasma calcium tom urement (mass/volume)Ordered By: Elmo Ackerman on 03-17-2023 Calcium [Mass/Vol] 8.5 mg/dL 8.5-10.1 [facility] Serum or plasma cholesterol in HDL measurement (mass/volume)Ordered By: Elmo Ackerman on 03-17-2023 Cholesterol in HDL [Mass/Vol] 45 mg/dL >40 [facility] Comment on above: The drugs N-Acetylcy steine and Metamizole may falsely depress this assay. Reference Range HDL <40 mg/dL Low HDL Cholesterol HDL >or= 60 mg/dL High HDL Cholesterol Serum or plasma cholesterol in VLDL measurement (mass/volume)Ordered By: Elmo Ackerman on 03-17-2023 Cholesterol in VLDL [Mass/Vol] 45 mg/dL 5-40 [facility] Serum or plasma creatinine m easurement (mass/volume)Ordered By: Elmo Ackerman on 03-17-2023 Creatinine [Mass/Vol] 1.14 mg/dL 0.55-1.02 [facility] Comment on above: The validity of the calculated GFR & GFRAA in patients over 70 years has not been determined. Clinical correlation is essential. Serum or plasma cytomegalovi stephanie (CMV) IgG antibody assay (units/volume)Ordered By: Elmo Ackerman on 03-17-2023 CMV IgG Qn > 10.00 U/mL 0.00-0.59 [facility] Comment on above: Negative <0.60 Equiv ocal 0.60 - 0.69 Positive >0.69Performed at: [facility] [id number] Director: Errol John PhD, Phone: [phone] Serum or plasma low density lipoprotein (LDL) cholesterol measurement (mass/volume)Ordered By: Elmo Ackerman on 03-17-2023 Cholesterol in LDL [Mass/Vol] 145 mg/dL 0-130 [facility] Serum or plasma urea nitroge n measurement (mass/volume)Ordered By: Elmo Ackerman on 03-17-2023 Urea nitrogen [Mass/Vol] 30 mg/dL 7-18 [facility] Thin prep Papanicolaou smear with manual screeningOrdered By: Elmo Ackerman on 03-17-2023 Thin prep Papanicolaou smear with manual screening 20 U/L 15-37 [facility] Thin prep Papanicolaou smear with manual screening 7 5-15 [facility] Thin prep Papanicolaou smear with manual screening Comment . [facility] Comment on above: EBV Interpretation C hartKey: Antibody Present + Antibody Absent -Interpretation VCA-IgM VCA-IgG EBNA-IgGNo previous infection/ - - -SusceptiblePrimary infection (new + + -or recent)Past Infection +or- + +See comment below* + - -*Results indicate infection with EBV at some time however cannot predict the timing of the infection since antibodies to EBNA usually develop after primary infection or, alternatively, approximately 5-10% of patients with EBV never develop antibodies to EBNA. Absolute lymphocyte countOrd ered By: Elmo Ackerman on 10-27-2022 Lymphocytes Auto (Unsp spec) [#/Vol] 3.62 10*3/uL 0.83-4.51 [facility] Basophil percentageOrdered B y: Elmo Ackerman on 10-27-2022 Basophil percentage < 0.2 AI 0.0-0.9 [facility] Basophils/100 WBC (Bld) 0.6 % 0-1 [facility] Bilirubin [Mass/Vol] 0.40 mg/dL 0.20-1.00 [facility] Comment on above: For patients on eltr ombopag therapy, use of Dimension Kevin TBIL is not recommended. Chloride [Moles/Vol] 106 mmol/L 98-107 [facility] Eosinophils/100 WBC (Bld) 2.4 % 0-5 [facility] Glucose [Mass/Vol] 106 mg/dL 74-106 [facility] Comment on above: Fasting Glucose resu lt from 100 to 125 mg/dL suggests IMPAIRED HOMEOSTASIS per A.D.A. criteria. Neutrophils (Bld) [#/Vol] 6.1 10*3/uL 2.0-7.7 [facility] Neutrophils/100 WBC (Bld) 56.1 % 47-70 [facility] Potassium [Moles/Vol] 4.3 mmol/L 3.5-5.1 [facility] Protein [Mass/Vol] 7.0 g/dL 6.4-8.2 [facility] Sodium [Moles/Vol] 142 mmol/L 136-145 [facility] WBC (Bld) [#/Vol] 10.8 10*3/uL 4.4-11.0 [facility] Blood erythrocytes count (nu mber/volume)Ordered By: Elmo Ackerman on 10-27-2022 RBC (Bld) [#/Vol] 4.59 10*6/uL 4.2-5.4 [facility] Blood hemoglobin measurement (mass/volume)Ordered By: Elmo Ackerman on 10-27-2022 Hemoglobin (Bld) [Mass/Vol] 13.8 g/dL 12.0-15.0 [facility] Blood lymphocytes/100 leukoc ytesOrdered By: Elmo Ackerman on 10-27-2022 Lymphocytes/100 WBC (Bld) 33.6 % 19-41 [facility] Blood monocytes/100 leukocyt esOrdered By: Elmo Ackerman on 10-27-2022 Monocytes/100 WBC (Bld) 7.1 % 0-10 [facility] Blood platelet mean volumeOr dered By: Elmo Ackerman on 10-27-2022 Platelet mean volume (Bld) [Entitic vol] 10.6 fL 6.2-12.0 [facility] Determination of erythrocyte mean corpuscular volume (MCV)Ordered By: Elmo Ackerman on 10-27-2022 MCV (RBC) [Entitic vol] 88.2 fL 81-99 [facility] Hematocrit Auto (Bld) [Volum e fraction]Ordered By: Elmo Ackerman on 10-27-2022 Hematocrit (Bld) [Volume fraction] 40.5 % 37-47 [facility] - Chemistry and C hemistry - challengeOrdered By: Elmo Ackerman on 10-27-2022 ALP [Catalytic activity/Vol] 98 U/L 45-117 [facility] [facility] ALT [Catalytic activity/Vol] 23 U/L 13-56 [facility] CO2 [Moles/Vol] 29.0 mmol/L 21.0-32.0 [facility] Globulin (S) [Mass/Vol] 3.0 g/dL 2.2-4.2 [facility] Urea nitrogen/Creatinine [Mass ratio] 18.0 mg/mg 10-20 [facility] Laboratory - Hematology and Cell countsOrdered By: Elmo Ackerman on 10-27-2022 Erythrocyte distribution width (RBC) [Entitic vol] 42.1 fL 35.1-43.9 [facility] Erythrocyte distribution width (RBC) [Ratio] 13.1 % 11.6-14.6 [facility] Immature granulocytes/100 WBC (Bld) 0.200 % 0.0-0.9 [facility] Comment on above: IG% - Immature Granu locytes (promyelocytes, myelocytes and metamyelocytes) > 1% indicates that a LEFT SHIFT is Present. MCH (RBC) [Entitic mass] 30.1 pg 27.0-32.0 [facility] Nucleated RBC/100 WBC (Bld) [Ratio] 0 % 0-5 [facility] MCHC Auto (RBC) [Mass/Vol]Or dered By: Elmo Ackerman on 10-27-2022 MCHC (RBC) [Mass/Vol] 34.1 g/dL 32-36 [facility] No Panel InformationOrdered By: Elmo Ackerman on 10-27-2022 Centromere B Antibody <0.2 AI 0.0-0.9 [facility] Estimated GFR (MDRD) Amer 95 mL/min >60 [facility] Comment on above: GFR Calc Estimated GFR (MDRD) Non-Af Amer 78 mL/min >60 [facility] Comment on above: Non- GFR Calc CHAIR POST MACHINE OPERATOR Antibody 0.7 AI 0.0-0.9 [facility] Platelets bldOrdered By: Adam Ackerman on 10-27-2022 Platelets (Bld) [#/Vol] 272 10*3/uL 150-450 [facility] Serum DNA double strand anti body assay (units/volume)Ordered By: Elmo Ackerman on 10-27-2022 DNA double strand Ab Qn (S) 1 [IU]/mL 0-9 [facility] Comment on above: Negative <5 Equivoca l 5 - 9 Positive >9 Serum Arcelia James virus cap maureen IgG antibody assay (units/volume)Ordered By: Elmo Ackerman on 10-27-2022 EBV capsid IgG Qn (S) [arb'U]/mL 0.0-17.9 [facility] Comment on above: Negative <18.0 Equiv ocal 18.0 - 21.9 Positive >21.9 Serum Arcelia James virus cap maureen IgM antibody assay (units/volume)Ordered By: Elom Ackerman on 10-27-2022 EBV capsid IgM Qn (S) [arb'U]/mL 0.0-35.9 [facility] Comment on above: Negative <36.0 Equiv ocal 36.0 - 43.9 Positive >43.9 Serum Arcelia James virus nuc lear IgG antibody assay (units/volume)Ordered By: Elmo Ackerman on 10-27-2022 EBV nuclear IgG Qn (S) 214.0 U/mL 0.0-17.9 [facility] Comment on above: Negative <18.0 Equiv ocal 18.0 - 21.9 Positive >21.9 Serum Sangeetha-1 antibody assay (u nits/volume)Ordered By: Elmo Ackerman on 10-27-2022 Sangeetha-1 extractable nuclear Ab Qn (S) <0.2 AI 0.0-0.9 [facility] Serum Scl-70 extractable nuc lear antibody assay (units/volume)Ordered By: Elmo Ackerman on 10-27-2022 SCL-70 extractable nuclear Ab Qn (S) <0.2 AI 0.0-0.9 [facility] Serum Hernandez extractable nucl ear antibody detectionOrdered By: Elmo Ackerman on 10-27-2022 Hernandez extractable nuclear Ab Ql (S) <0.2 AI 0.0-0.9 [facility] Serum or plasma albumin tom urement (mass/volume)Ordered By: Elmo Ackerman on 10-27-2022 Albumin [Mass/Vol] 4.0 g/dL 3.2-5.0 [facility] Serum or plasma albumin/glob ulin mass ratioOrdered By: Elmo Ackerman on 10-27-2022 Albumin/Globulin [Mass ratio] 1.3 {ratio} 0.9-2.4 [facility] Serum or plasma calcium tom urement (mass/volume)Ordered By: Elmo Ackerman on 10-27-2022 Calcium [Mass/Vol] 8.7 mg/dL 8.5-10.1 [facility] Serum or plasma creatinine m easurement (mass/volume)Ordered By: Elmo Ackerman on 10-27-2022 Creatinine [Mass/Vol] 0.78 mg/dL 0.55-1.02 [facility] Comment on above: The validity of the calculated GFR & GFRAA in patients over 70 years has not been determined. Clinical correlation is essential. Serum or plasma urea nitroge n measurement (mass/volume)Ordered By: Elmo Ackerman on 10-27-2022 Urea nitrogen [Mass/Vol] 14 mg/dL 7-18 [facility] Thin prep Papanicolaou smear with manual screeningOrdered By: Elmo Ackerman on 10-27-2022 Thin prep Papanicolaou smear with manual screening 12 U/L 15-37 [facility] Thin prep Papanicolaou smear with manual screening 7 5-15 [facility] Thin prep Papanicolaou smear with manual screening Comment . [facility] Comment on above: EBV Interpretation C rockfordKey: Antibody Present + Antibody Absent -Interpretation VCA-IgM VCA-IgG EBNA-IgGNo previous infection/ - - -SusceptiblePrimary infection (new + + -or recent)Past Infection +or- + +See comment below* + - -*Results indicate infection with EBV at some time however cannot predict the timing of the infection since antibodies to EBNA usually develop after primary infection or, alternatively, approximately 5-10% of patients with EBV never develop antibodies to EBNA.Performed at: [address] [id number] Director: Errol John PhD, Phone: [phone] Cerebrospinal fluid Borrelia burgdorferi 18kd IgG antibody detection by immunoblotOrdered By: Elmo Ackerman on 07-14-2022 B. burgdorferi 18kD IgG IB Ql (CSF) Absent . [facility] Cerebrospinal fluid Borrelia burgdorferi 23kD IgG antibody detection by immunoblotOrdered By: Elmo Ackerman on 07-14-2022 B. burgdorferi 23kD IgG IB Ql (CSF) Absent . [facility] Cerebrospinal fluid Borrelia burgdorferi 23kD IgM antibody detection by immunoblotOrdered By: Elmo Ackerman on 07-14-2022 B. burgdorferi 23kD IgM IB Ql (CSF) Absent . [facility] Cerebrospinal fluid Borrelia burgdorferi 28kD IgG antibody detection by immunoblotOrdered By: Elmo Ackerman on 07-14-2022 B. burgdorferi 28kD IgG IB Ql (CSF) Present . [facility] Cerebrospinal fluid Borrelia burgdorferi 39kD IgG antibody detection by immunoblotOrdered By: Elmo Ackerman on 07-14-2022 B. burgdorferi 39kD IgG IB Ql (CSF) Present . [facility] Cerebrospinal fluid Borrelia burgdorferi 39kD IgM antibody detection by immunoblotOrdered By: Elmo Ackerman on 07-14-2022 B. burgdorferi 39kD IgM IB Ql (CSF) Absent . [facility] Cerebrospinal fluid Borrelia burgdorferi 41kD IgM antibody detection by immunoblotOrdered By: Elmo Ackerman on 07-14-2022 B. burgdorferi 41kD IgM IB Ql (CSF) Absent . [facility] No Panel InformationOrdered By: Elmo Ackerman on 07-14-2022 Lyme Disease IgG Ab 30 kDa Band Absent . [facility] Lyme Disease IgG Ab 93 kDa Band Present . [facility] Lyme Disease IgG West Blot Interp Positive . [facility] Comment on above: Positive: 5 of the f ollowing Borrelia-specific bands: 18,23,28,30,39,41,45,58, 66, and 93. Negative: No bands or banding patterns which do not meet positive criteria. Lyme Disease IgM Ab (Western Blot) Negative . [facility] Comment on above: Note: An equivocal o r positive EIA result followed by anegative Line Blot result is considered NEGATIVE. Anequivocal or positive EIA result followed by a positiveLine Blot is considered POSITIVE by the CDC.Positive: 2 of the following bands: 23,39 or 41Negative: No bands or banding patterns which do not meetpositive criteria.Criteria for positivity are those recommended byCDC/ASTPHLD. p23=Osp C, x92=sksmoksfdKczj:Sera from individuals with the following may cross reactin the Lyme Line Blot assays: other spirochetal diseases(periodontal disease, leptospirosis, relapsing fever, yaws,and pinta); connective autoimmune (Rheumatoid Arthritis andSystemic Lupus Erythematosus and also individuals withAntinuclear Antibody); other infections (Brian MountainSpotted Fever; Arcelia-James Virus, and Cytomegalovirus).Please Note: Lyme immunoblot alone is not recommended forthe diagnosis of Lyme disease. Current guidelines recommendthe use of a two-tiered approach to Lyme serology testingto improve the sensitivity and specificity of testing.[facility] offers test code 160584 Lyme Disease Serology withReflex to aid in the diagnosis of Lyme Disease.Performed at: [address] [id number] Director: Kory Holley MD, Phone: [phone] Serum Borrelia burgdorferi 4 1kD IgG antibody detection by immunoblotOrdered By: Elmo Ackerman on 07-14-2022 B. burgdorferi 41kD IgG IB Ql (S) Present . [facility] Serum Borrelia burgdorferi 6 6kD IgG antibody detection by immunoblotOrdered By: Elmo Ackerman on 07-14-2022 B. burgdorferi 66kD IgG IB Ql (S) Absent . [facility] Synovial fluid Borrelia christopher dorferi 45kD IgG antibody detection by immunoblotOrdered By: Elmo Ackerman on 07-14-2022 B. burgdorferi 45kD IgG IB Ql (Syn fld) Absent . [facility] Synovial fluid Borrelia christopher dorferi 58kD IgG antibody detection by immunoblotOrdered By: Elmo Ackerman on 07-14-2022 B. burgdorferi 58kD IgG IB Ql (Syn fld) Present . [facility] MARISA SCREENINGon 06-25-2022 [facility] Absolute lymphocyte counton 06-17-2022 Lymphocytes Auto (Unsp spec) [#/Vol] 3.38 10*3/uL 0.83-4.51 [facility] Work Phone: Basophil percentageon 2021 Basophils/100 WBC (Bld) 0.5 % 0-1 [facility] Work Phone: Bilirubin [Mass/Vol] 0.40 mg/dL 0.20-1.00 [facility] Work Phone: Comment on above: For patients on eltr ombopag therapy, use of Dimension Kevin TBIL is not recommended. Chloride [Moles/Vol] 106 mmol/L 98-107 [facility] Work Phone: Cholesterol [Mass/Vol] 222 mg/dL <200 [facility] Work Phone: Comment on above: <200 mg/dL Desirable 200-240 mg/dL Borderline >240 mg/dL High Risk Eosinophils/100 WBC (Bld) 1.1 % 0-5 [facility] Work Phone: Glucose [Mass/Vol] 116 mg/dL 74-106 [facility] Work Phone: Comment on above: Fasting Glucose resu lt from 100 to 125 mg/dL suggests IMPAIRED HOMEOSTASIS per A.D.A. criteria. Neutrophils (Bld) [#/Vol] 5.6 10*3/uL 2.0-7.7 [facility] Work Phone: Neutrophils/100 WBC (Bld) 56.8 % 47-70 [facility] Work Phone: Potassium [Moles/Vol] 3.7 mmol/L 3.5-5.1 [facility] Work Phone: Protein [Mass/Vol] 7.1 g/dL 6.4-8.2 [facility] Work Phone: Sodium [Moles/Vol] 139 mmol/L 136-145 [facility] Work Phone: Triglyceride [Mass/Vol] 219 mg/dL <199 [facility] Work Phone: Comment on above: The drugs N-Acetylcy steine and Metamizole may falsely depress this assay.Serum Triglycerides Reference Interval Normal <150 mg/dL Borderline high 150 - 199 mg/dL High 200 - 499 mg/dL Very High > or = 500 mg/dL WBC (Bld) [#/Vol] 9.8 10*3/uL 4.4-11.0 [facility] Work Phone: Blood erythrocytes count (nu mber/volume)on 06-17-2022 RBC (Bld) [#/Vol] 4.75 10*6/uL 4.2-5.4 [facility] Work Phone: Blood hemoglobin measurement (mass/volume)on 06-17-2022 Hemoglobin (Bld) [Mass/Vol] 13.8 g/dL 12.0-15.0 [facility] Work Phone: Blood lymphocytes/100 leukoc yteson 06-17-2022 Lymphocytes/100 WBC (Bld) 34.3 % 19-41 [facility] Work Phone: Blood monocytes/100 leukocyt eson 06-17-2022 Monocytes/100 WBC (Bld) 7.0 % 0-10 [facility] Work Phone: Blood platelet mean volumeon 06-17-2022 Platelet mean volume (Bld) [Entitic vol] 10.7 fL 6.2-12.0 [facility] Work Phone: Determination of erythrocyte mean corpuscular volume (MCV)on 06-17-2022 MCV (RBC) [Entitic vol] 88.6 fL 81-99 [facility] Work Phone: Hematocrit Auto (Bld) [Volum e fraction]on 06-17-2022 Hematocrit (Bld) [Volume fraction] 42.1 % 37-47 [facility] Work Phone: Laboratory - Chemistry and C hemistry - challengeon 06-17-2022 ALP [Catalytic activity/Vol] 88 U/L 45-117 [facility] Work Phone: ALT [Catalytic activity/Vol] 21 U/L 13-56 [facility] Work Phone: CO2 [Moles/Vol] 27.0 mmol/L 21.0-32.0 [facility] Work Phone: Globulin (S) [Mass/Vol] 3.3 g/dL 2.2-4.2 [facility] Work Phone: Urea nitrogen/Creatinine [Mass ratio] 24.0 mg/mg 10-20 [facility] Work Phone: Laboratory - Hematology and Cell countson 06-17-2022 Erythrocyte distribution width (RBC) [Entitic vol] 42.2 fL 35.1-43.9 [facility] Work Phone: Erythrocyte distribution width (RBC) [Ratio] 13.0 % 11.6-14.6 [facility] Work Phone: Immature granulocytes/100 WBC (Bld) 0.300 % 0.0-0.9 [facility] Work Phone: Comment on above: IG% - Immature Granu locytes (promyelocytes, myelocytes and metamyelocytes) > 1% indicates that a LEFT SHIFT is Present. MCH (RBC) [Entitic mass] 29.1 pg 27.0-32.0 [facility] Work Phone: Nucleated RBC/100 WBC (Bld) [Ratio] 0 % 0-5 [facility] Work Phone: MCHC Auto (RBC) [Mass/Vol]on 06-17-2022 MCHC (RBC) [Mass/Vol] 32.8 g/dL 32-36 [facility] Work Phone: No Panel Informationon 06-17 Estimated GFR (MDRD) Amer 88 mL/min >60 [facility] Work Phone: Comment on above: GFR Calc Estimated GFR (MDRD) Non-Af Amer 72 mL/min >60 [facility] Work Phone: Comment on above: Non- GFR Calc Thyroid Stimulating Hormone (TSH) 1.25 uIU/mL 0.358-3.74 [facility] Work Phone: Platelets bldon 06-17-2022 Platelets (Bld) [#/Vol] 310 10*3/uL 150-450 [facility] Work Phone: Serum or plasma albumin tom urement (mass/volume)on 06-17-2022 Albumin [Mass/Vol] 3.8 g/dL 3.2-5.0 [facility] Work Phone: Serum or plasma albumin/glob ulin mass ratioon 06-17-2022 Albumin/Globulin [Mass ratio] 1.2 {ratio} 0.9-2.4 [facility] Work Phone: Serum or plasma calcium tom urement (mass/volume)on 06-17-2022 Calcium [Mass/Vol] 8.9 mg/dL 8.5-10.1 [facility] Work Phone: Serum or plasma cholesterol in HDL measurement (mass/volume)on 06-17-2022 Cholesterol in HDL [Mass/Vol] 44 mg/dL >40 [facility] Work Phone: Comment on above: The drugs N-Acetylcy steine and Metamizole may falsely depress this assay. Reference Range HDL <40 mg/dL Low HDL Cholesterol HDL >or= 60 mg/dL High HDL Cholesterol Serum or plasma cholesterol in VLDL measurement (mass/volume)on 06-17-2022 Cholesterol in VLDL [Mass/Vol] 44 mg/dL 5-40 [facility] Work Phone: Serum or plasma creatinine m easurement (mass/volume)on 06-17-2022 Creatinine [Mass/Vol] 0.83 mg/dL 0.55-1.02 [facility] Work Phone: Comment on above: The validity of the calculated GFR & GFRAA in patients over 70 years has not been determined. Clinical correlation is essential. Serum or plasma low density lipoprotein (LDL) cholesterol measurement (mass/volume)on 06-17-2022 Cholesterol in LDL [Mass/Vol] 134 mg/dL 0-130 [facility] Work Phone: Serum or plasma urea nitroge n measurement (mass/volume)on 06-17-2022 Urea nitrogen [Mass/Vol] 20 mg/dL 7-18 [facility] Work Phone: Thin prep Papanicolaou smear with manual screeningon 06-17-2022 Thin prep Papanicolaou smear with manual screening 15 U/L 15-37 [facility] Work Phone: Thin prep Papanicolaou smear with manual screening 6 5-15 [facility] Work Phone: CNCOon 08-13-2021 RAFIO HNO ID: [id number] Author: Mammography Coordinator Service: ? Author Type: Physician Type: Letter Filed: 08/14/2021 11:32 PM Note Text: [address] [id number] August 13, 2021 PID: [id number] Deepa Jordan [address] [place] [address] Dear Ms. Jordan, We are pleased to inform you that the results of your recent breast imaging exam on 08/13/2021 are normal. Early detection of cancer is very important. We also understand recommendations regarding breast cancer screening are controversial. Please discuss with your primary care provider which strategy is best for you and whether a mammogram is right for you. Your imaging studies and report will be kept on file at [facility] as part of your permanent medical record and are available for your continuing care. Thank you for allowing us to help in meeting your health care needs. Sincerely, Dr. Castro Interpreting Radiologist [facility] (Normal over 40) Normal [facility] CNCOon 07-22-2021 [facility] HNO ID: [id number] Author: Mammography Coordinator Service: ? Author Type: Physician Type: Letter Filed: 07/23/2021 11:36 PM Note Text: [address] [address] July 22, 2021 PID: [id number] Deepa Jordan [address] [place] [address] Dear Ms. Jordan, Your recent breast imaging exam on 07/22/2021 showed a possible finding that requires additional imaging studies for a complete evaluation. Most such findings are probably benign (not cancer). If you have a healthcare provider who ordered/prescribed your screening mammogram: Please call [phone] to schedule an appointment for your additional imaging (if you have not already done so). If you DO NOT have a healthcare provider (ie you did not have an order/prescription for your screening mammogram): Please call [phone] to schedule an appointment for your additional imaging (if you have not already done so). You must have an order / prescription from your physician when calling to schedule your appointment. If your order / prescription is not electronic, you must bring the hard copy with you on the day of your exam to avoid rescheduling your exam. Your imaging studies and reports are kept on file at [facility] as part of your permanent medical record, and are available for your continuing care. Thank you for allowing us to help in meeting your health care needs. Sincerely, Dr. Parrish Interpreting Radiologist [facility] (Additional imaging) Normal [facility] Clinical Summary: HMSPatient IDon 09-18-2020 SOP Sharmila [facility] Work Phone: [facility] SCREENINGon 05-07-2020 [facility] SCREENING Final Report DATE OF EXAM: May 07 2020 10:14AM LDW [id number] - [facility] SCREENING / PROCEDURE REASON: Screening Physician Interpretation #[id number] - [facility] SCREENING BILATERAL DIGITAL SCREENING MAMMOGRAM WITH CAD: 05/07/2020 HISTORY: Routine screening mammogram. Patient reports no breast problems. RESULT: TECHNIQUE: The study was acquired using full field digital technology and interpreted from soft copy. Current study was also evaluated with a Computer Aided Detection (CAD). Comparison is made to exams dated: 02/22/2019 mammogram, 01/27/2018 mammogram, 10/06/2016 mammogram, 10/01/2015 mammogram, 09/12/2014 mammogram, and 09/07/2013 mammogram - [facility]. The tissue of both breasts is predominantly fatty. No significant masses, calcifications, or other findings are seen in either breast. There has been no significant interval change. IMPRESSION: NEGATIVE There is no mammographic evidence of malignancy. A 1 year screening mammogram is recommended. Mickey teixeira/breanna:05/07/2020 10:16:43 Superintendent Laundry(s): Jovon Velazquez (Jason)(M), [facility] letter sent: Normal over 40 Mammogram BI-RADS: 1 Negative Multiple national specialty organizations have released breast cancer screening guidelines for women at average risk for developing breast cancer - guidelines that are based on both evidence and opinion, yet differ on when to start and how often to screen for breast cancer. With representation from Breast Imaging, Internal Medicine, Women's Health, Family Medicine, and Medical/Surgical Oncology, the [facility] has carefully reviewed the data and reached the following consensus: 1) All women should engage in shared decision-making with their providers to decide when to start and how often to screen; 2) All women should have the opportunity to start screening mammography at age 40; 3) For women ages 45-55, we recommend annual screening mammograms; 4) For women ages 55 and over, we support both the transition from an annual to a biennial interval if this aligns more with patient's values and preferences, or continuation with annual screening; 5) All women should discuss with their providers when to stop screening mammograms. [facility] Shared Services Consultant: Breanna Transcribe Date/Time: May 07 2020 9:59A Dictated by : MICKEY GTZ MD This examination was interpreted and the report reviewed and electronically signed by: MICKEY GTZ MD on May 07 2020 10:16AM EST Normal [facility] Vital Signs Date Time Vital Sign Value Performing Clinician Facility 02-03-2024 18:33-0400 Body height 160.02 cm [facility] 11-26-2023 17:40-0500 Body mass index (BMI) [Ratio] 32.1 kg/m2 [facility] 11-26-2023 17:40-0500 Body temperature 97.9 [degF] [facility] 11-26-2023 17:40-0500 Body weight 82.1 kg [facility] 11-26-2023 17:40-0500 Diastolic blood pressure 70 mm[Hg] [facility] 11-26-2023 17:40-0500 Heart rate 77 /min [facility] 11-26-2023 17:40-0500 Respiratory rate 18 /min [facility] 11-26-2023 17:40-0500 SaO2% (BldA) [Mass fraction] 98 % [facility] 11-26-2023 17:40-0500 Systolic blood pressure 115 mm[Hg] [facility] 04-22-2023 14:39-0400 Body height 160.02 cm [facility] 04-22-2023 14:39-0400 Body mass index (BMI) [Ratio] 30.9 kg/m2 [facility] 04-22-2023 14:39-0400 Body temperature 97.5 [degF] [facility] 04-22-2023 14:39-0400 Body weight 79.37 kg [facility] 04-22-2023 14:39-0400 Diastolic blood pressure 60 mm[Hg] [facility] 04-22-2023 14:39-0400 Heart rate 96 /min [facility] 04-22-2023 14:39-0400 Respiratory rate 18 /min [facility] 04-22-2023 14:39-0400 SaO2% (BldA) [Mass fraction] 97 % [facility] 04-22-2023 14:39-0400 Systolic blood pressure 104 mm[Hg] [facility] 03-17-2023 19:31-0400 Body height 160.02 cm [facility] 03-17-2023 19:31-0400 Body mass index (BMI) [Ratio] 31.8 kg/m2 [facility] 03-17-2023 19:31-0400 Body temperature 97.7 [degF] [facility] 03-17-2023 19:31-0400 Body weight 81.64 kg [facility] 03-17-2023 19:31-0400 Diastolic blood pressure 80 mm[Hg] [facility] 03-17-2023 19:31-0400 Heart rate 87 /min [facility] 03-17-2023 19:31-0400 Respiratory rate 18 /min [facility] 03-17-2023 19:31-0400 SaO2% (BldA) [Mass fraction] 96 % [facility] 03-17-2023 19:31-0400 Systolic blood pressure 115 mm[Hg] [facility] 10-27-2022 16:14-0500 Body height 160.02 cm [facility] 10-27-2022 16:14-0500 Body mass index (BMI) [Ratio] 30.2 kg/m2 [facility] 10-27-2022 16:14-0500 Body temperature 97.9 [degF] [facility] 10-27-2022 16:14-0500 Body weight 77.33 kg [facility] 10-27-2022 16:14-0500 Diastolic blood pressure 80 mm[Hg] [facility] 10-27-2022 16:14-0500 Heart rate 67 /min [facility] 10-27-2022 16:14-0500 Respiratory rate 18 /min [facility] 10-27-2022 16:14-0500 SaO2% (BldA) [Mass fraction] 97 % [facility] 10-27-2022 16:14-0500 Systolic blood pressure 130 mm[Hg] [facility] 07-14-2022 17:47-0400 Body height 160.02 cm [facility] Work Phone: 07-14-2022 17:47-0400 Body mass index (BMI) [Ratio] 31.3 kg/m2 [facility] 07-14-2022 17:47-0400 Body temperature 97.9 [degF] [facility] 07-14-2022 17:47-0400 Body weight 80.28 kg [facility] 07-14-2022 17:47-0400 Diastolic blood pressure 70 mm[Hg] [facility] 07-14-2022 17:47-0400 Heart rate 76 /min [facility] 07-14-2022 17:47-0400 Respiratory rate 18 /min [facility] 07-14-2022 17:47-0400 SaO2% (BldA) [Mass fraction] 97 % [facility] 07-14-2022 17:47-0400 Systolic blood pressure 110 mm[Hg] [facility] 06-17-2022 16:33-0400 Body mass index (BMI) [Ratio] 31.3 kg/m2 [facility] Work Phone: 06-17-2022 16:33-0400 Body temperature 97.9 [degF] [facility] Work Phone: 06-17-2022 16:33-0400 Body weight 80.28 kg [facility] Work Phone: 06-17-2022 16:33-0400 Diastolic blood pressure 70 mm[Hg] [facility] Work Phone: 06-17-2022 16:33-0400 Heart rate 96 /min [facility] Work Phone: 06-17-2022 16:33-0400 Respiratory rate 18 /min [facility] Work Phone: 06-17-2022 16:33-0400 SaO2% (BldA) [Mass fraction] 96 % [facility] Work Phone: 06-17-2022 16:33-0400 Systolic blood pressure 112 mm[Hg] [facility] Work Phone: NEGATED: Highlighted [id number] 10:11-0500 BMI (Body Mass Index) 35.32 kg/m2 [facility] Work Phone: NEGATED: Highlighted [id number] 10:11-0500 Body weight 92.99 kg [facility] Work Phone: NEGATED: Highlighted [id number] 10:11-0500 Body weight 93 kg Eunice Conrad CABLE [employer]SEM[employer]ER [employer]ER [facility] Work Phone: NEGATED: Highlighted [id number] 10:11-0500 Height 162.56 cm Eunice Houston CABLE ASSEM[employer]ER AND [employer]ER [facility] Work Phone: NEGATED: Highlighted [id number] 10:11-0500 Height 163 cm [facility] Work Phone: Encounters Encounter Date Encounter Type Care Provider Facility Start: 10-26-2024 ambulatory ELMO ACKERMAN Facil ity:[facility] Start: 10-26-2024 End: 10-26-2024 Subsequent hospital visit by physician Mammo/Bone Density [facility] RADIO MAMMO BONE D [facility] Comment on above: Encounter for screen ing mammogram for malignant neoplasm of breast [Z12.31] Start: 09-25-2024 Encounter for genera l adult medical examination without abnormal findings Elmo Ackerman NP [facility] Start: 08-28-2024 End: 08-28-2024 ambulatory Elmo Ackerman NP Facility:[facility] Start: 05-16-2024 End: 05-16-2024 Emergency department patient visit ISELA Saira WASHINGTONPINO Facility:[facility] Start: 02-02-2024 End: 02-02-2024 ambulatory [facility] Work Phone: Start: 02-02-2024 End: 02-02-2024 Patient encounter procedure [facility], [facility] Work Phone: Start: 02-02-2024 End: 02-02-2024 ambulatory Tatijuan francisco Rivera Facility:[facility] Start: 09-16-2023 Documentation procedure Mammog lynne Coordinator [facility] Start: 09-16-2023 Letter encounter Mammography Coordinator [facility] Start: 09-15-2023 End: 09-15-2023 Subsequent hospital visit by physician Mammo/Bone Density [facility]MO [facility] Start: 05-18-2023 End: 05-18-2023 Subsequent hospital visit by physician Xr [facility] Comment on above: Cervicalgia [M54.2] Start: 04-22-2023 End: 04-22-2023 ambulatory [facility] Work Phone: Start: 04-22-2023 End: 04-22-2023 Patient encounter procedure [facility] Work Phone: Start: 03-17-2023 End: 03-17-2023 ambulatory [facility] Work Phone: Start: 03-17-2023 End: 03-17-2023 Patient encounter procedure [facility] Start: 10-27-2022 End: 10-27-2022 ambulatory [facility] Work Phone: Start: 10-27-2022 End: 10-27-2022 Patient encounter procedure [facility] Start: 07-14-2022 End: 07-14-2022 ambulatory [facility] Work Phone: Start: 07-14-2022 End: 07-14-2022 Patient encounter procedure [facility] Start: 06-25-2022 Documentation procedure Mammog lynne Coordinator [facility] Start: 06-25-2022 Letter encounter Mammography Coordinator [facility] Start: 06-25-2022 End: 06-25-2022 Subsequent hospital visit by physician Xr [facility] Comment on above: Encounter for screen ing mammogram for malignant neoplasm of breast [Z12.31] Age-related osteopor osis without current pathological fracture [M81.0] Start: 06-17-2022 End: 06-17-2022 Patient encounter procedure [facility] Start: 06-17-2022 Patient encounter status [facility] Start: 09-18-2020 End: 09-18-2020 Ot evaluation Arun Torres MD Work Phone: [facility] Work Phone: Start: 09-18-2020 End: 09-18-2020 Patient encounter procedure Arun Torres MD Work Phone: [facility] Work Phone: Start: 03-06-2020 Patient encounter procedure [facility] Procedures Date Procedure Procedure Detail Performing Clinician Start: 02-02-2024 US urinary tract Start: 06-25-2022 End: 06-25-2022 Mammography Elmo Ackerman APRN.CNP Work Phone: Start: 09-18-2020 End: 09-18-2020 Blood pressure screening not performed - reason not given Arun Torres MD Work Phone: Start: 09-18-2020 End: 09-18-2020 BMI documented as above normal parameters - follow-up documented Arun Torres MD Work Phone: Start: 09-18-2020 End: 09-18-2020 Documentation of current medications Arun Torres MD Work Phone: Start: 09-18-2020 End: 09-18-2020 HFO PREFAB STATIC Arun Torres MD Work Phone: Start: 09-18-2020 End: 09-18-2020 Osteoarthritis assess Arun Torres MD Work Phone: Start: 09-18-2020 End: 09-18-2020 Pain assessment documented as positive - follow-up documented Arun Torres MD Work Phone: Start: 09-18-2020 End: 09-18-2020 Tobacco non-user Arun Torres MD Work Phone: Start: 09-18-2020 End: 09-18-2020 WHFO CUSTOM STATIC Arun Torres MD Work Phone: NEGATED: Highlighted rowStart: 09-18-2020 End: 09-18-2020 Documentation of current medications Eunice Conrad JUAN Plan of Treatment Date Care Activity Detail Author Start: 2029 RSV Vaccine (1 - 1-dose 75+ series) RSV Vaccine (1 - 1-dose 75+ series) [facility] Start: 05-16-2027 Diabetes Screening Diabetes Screening [facility] Start: 10-18-2024 Advance Directive Discussion Advance Directive Discussion [facility] Start: 09-15-2024 Mammography Mammogram Screening [facility] Start: 09-15-2024 Screening for malignant neoplasm of breast Mammogram Screening [facility] Start: 06-18-2024 Covid-19 Vaccine ( season) Covid-19 Vaccine () [facility] Start: 06-18-2024 Influenza vaccination Influenza Vaccine (#1) [facility] Start: 06-25-2023 Mammography [facility] Start: 06-18-2023 Covid-19 Vaccine ( season) Covid-19 Vaccine ( season) [facility] Start: 06-18-2023 Influenza vaccination [facility] Start: 10-18-2022 ADVANCE DIRECTIVE DISCUSSION ADVANCE DIRECTIVE DISCUSSION [facility] Start: 10-18-2022 DEPRESSION ASSESSMENT DEPRESSION ASSESSMENT [facility] Start: 07-14-2022 Borrelia burgdorferi blot test [facility] Work Phone: Start: 06-18-2022 Influenza vaccination INFLUENZA (#1) [facility] Start: 12-30-2021 COVID-19 VACCINE (4 - Booster for Moderna series) COVID-19 VACCINE (4 - Booster for Moderna series) [facility] Start: 10-27-2021 COVID-19 VACCINE (4 - Moderna series) COVID-19 VACCINE (4 - Moderna series) [facility] Start: 10-18-2021 ADVANCE DIRECTIVE DISCUSSION ADVANCE DIRECTIVE DISCUSSION [facility] Start: 12-17-2020 DIABETES SCREEN DIABETES SCREEN [facility] Start: 12-17-2020 Diabetes Screening Diabetes Screening [facility] Start: 09-18-2020 End: 09-18-2020 Appointment Appointment [facility] Work Phone: Start: 09-18-2020 End: 09-18-2020 Radex hand minimum 3 views XR HAND 3+ VWS-LT [facility] Work Phone: Start: 2019 BONE DENSITY BONE DENSITY [facility] Start: 2019 Pneumococcal Vaccine: 65+ (1 - PCV) Pneumococcal Vaccine: 65+ (1 - PCV) [facility] Start: 2019 PNEUMOCOCCAL: 65+ (1 - PCV) PNEUMOCOCCAL: 65+ (1 - PCV) [facility] Start: 2014 RSV Vaccine (1 - 1-dose 60+ series) RSV Vaccine (1 - 1-dose 60+ series) [facility] Start: 2004 Pneumococcal Vaccine: 50+ (1 of 1 - PCV) Pneumococcal Vaccine: 50+ (1 of 1 - PCV) [facility] Start: 2004 Screening for malignant neoplasm of lung Lung Cancer Screening [facility] Start: 2004 SHINGRIX VACCINE (1 of 2) SHINGRIX VACCINE (1 of 2) [facility] Start: 1999 COLOGUARD (FIT-DNA) COLOGUARD (FIT-DNA) [facility] Start: 1999 Colonoscopy COLONOSCOPY [facility] Start: 1999 COLORECTAL CANCER SCREENING COLORECTAL CANCER SCREENING [facility] Start: [address] COLONOGRAPHY [facility] Start: 1999 FECAL OCCULT BLOOD FECAL OCCULT BLOOD [facility] Start: 1999 Lipid 1996 panel - Serum or Plasma Lipid Screening [facility] Start: 1999 Lipid panel Lipid Screening [facility] Start: 1999 LIPID SCREEN LIPID SCREEN [facility] Start: 1999 Screening for malignant neoplasm of colon [facility] Start: 1999 SIGMOIDOSCOPY SIGMOIDOSCOPY [facility] Start: 1973 Urine microalbumin profile [facility] Start: 1972 Anxiety Screening Anxiety Screening [facility] Start: 1972 Depression Screening Depression Screening [facility] Start: 1972 HEPATITIS C SCREENING HEPATITIS C SCREENING [facility] Start: 1972 Hepatitis C screening Hepatitis C Screening [facility] Start: 1966 Adult depression screening assessment DEPRESSION SCREENING [facility] Laboratory data interpretation [facility] Work Phone: Immunizations Immunization Date Immunization Notes Care Provider Fa cility 09-23-2022 influenza virus vacc ine, unspecified formulation Mammo/Bone Hosp [facility] Payers Date Payer Category Payer Self-pay [id number] 2023 Private Health Insurance [id number] 2021 Medicare [id number] Private Health Insurance [id number] Private Health Insurance [employer] [facility] [id number] Unknown ANTHEM [id number] Unknown AARP MCR ADV [id number] Unknown [id number] Unknown [id number] Social History Date Type Detail Facility Start: 07-14-2022 End: 04-22-2023 Assertion Unknown if ever smoked [facility] Work Phone: Start: 12-16-2017 Tobacco smoking stat us NHIS Ex-smoker [facility] Work Phone: Start: 10-18-1972 End: 10-18-2012 History of tobacco use Current smoker [facility] Work Phone: Start: 10-18-1972 End: 10-18-2012 History of tobacco use Cigarette Smoker [facility] Work Phone: Start: 12-16-2017 End: 05-17-2024 Cigarettes smoked current (pack per day) - Reported 1 [facility] Start: 12-16-2017 Tobacco use and exposure Smokeless tobacco non-user [facility] Work Phone: Start: 06-22-2018 End: 05-16-2024 Alcohol intake Current non-drinker of alcohol (finding) [facility] Start: 12-16-2017 History SDOH Alcohol Comment Once a year on her birthday [facility] Start: 12-16-2017 Tobacco Comment 42 years total average 1ppd [facility] Start: 1955 Sex Assigned At Not on file [facility] Start: 06-15-2022 End: 06-25-2022 Exposure to SARS-CoV-2 (event) Not sure [facility] Start: 1955 Sex Assigned At Female [facility] Start: 06-22-2018 End: 05-17-2024 Tobacco use panel [facility] National Score (1-10 0), lower number is lower risk Not on file [facility] Clinical Notes 07-22-2021 to 10-26-2024 Geno Phan RT(R) - 10/26/2024 10:30 AM ESTLetter - Coordinator, Mammography - 09/16/2023 4:22 PM Geno Hemphill RT(R) - 09/15/2023 2:30 PM EST Note Date & Type Note Facility 10-26-2024 History of Presen t illness Narrative Radiology Service Progress Note PATIENT NAME: Deepa Jordan DATE OF SERVICE: October 26, 2024 TIME: 10:16 AM PATIENT IDENTITY VERIFICATION COMPLETED USING TWO (2) IDENTIFIERS: Name and Date of confirmed by patient verbally. FALL SCREENING: Has the patient had 2 falls in the last year or 1 fall with injury or currently using an Ambulatory Assistive Device (Walker, Cane, Wheelchair, Crutches, etc.)? No PATIENT GENDER DATA: Female. status: : No status: N/A PATIENT RELEVANT IMPLANT DATA REVIEWED: Not Applicable PATIENT PRESENTS WITH AN IMPLANTABLE OR ATTACHED REPORTING COORDINATOR: No RADIOLOGY DEPARTMENT: Mammography PERIPHERAL IV DATA: Not applicable SIGNED BY: DAVID Velazquez) October 26, 2024 10:16 AM documented in this encounter [facility] 10-26-2024 Note HNO ID: [id number] Author: GENO PHAN RT (R) Service: Radiology Author Type: Technologist Type: Progress Notes Filed: 10/26/2024 10:16 Note Text: Radiology Service Progress Note PATIENT NAME: Deepa Jordan DATE OF SERVICE: October 26, 2024 TIME: 10:16 AM PATIENT IDENTITY VERIFICATION COMPLETED USING TWO (2) IDENTIFIERS: Name and Date of confirmed by patient verbally. FALL SCREENING: Has the patient had 2 falls in the last year or 1 fall with injury or currently using an Ambulatory Assistive Device (Walker, Cane, Wheelchair, Crutches, etc.)? No PATIENT GENDER DATA: Female. status: : No status: N/A PATIENT RELEVANT IMPLANT DATA REVIEWED: Not Applicable PATIENT PRESENTS WITH AN IMPLANTABLE OR ATTACHED REPORTING COORDINATOR: No RADIOLOGY DEPARTMENT: Mammography PERIPHERAL IV DATA: Not applicable SIGNED BY: RT Caroline(Jason) October 26, 2024 10:16 AM [facility] 09-16-2023 Miscellaneous Notes [address] [address] September 17, 2023 PID: [id number] Deepa Jordan [address] [place] [address] Dear Ms. Jordan, We are pleased to inform you that the results of your recent breast imaging exam on 09/15/2023 are normal. Early detection of cancer is very important. We also understand recommendations regarding breast cancer screening are controversial. Please discuss with your primary care provider which strategy is best for you and whether a mammogram is right for you. Your imaging studies and report will be kept on file at [facility] as part of your permanent medical record and are available for your continuing care. Thank you for allowing us to help in meeting your health care needs. Sincerely, Dr. Parrish Interpreting Radiologist [facility] (Normal over 40) documented in this encounter [facility] 09-15-2023 History of Presen t illness Narrative Radiology Service Progress Note PATIENT NAME: Deepa Jordan DATE OF SERVICE: September 15, 2023 TIME: 2:30 PM PATIENT IDENTITY VERIFICATION COMPLETED USING TWO (2) IDENTIFIERS: Name and Date of confirmed by patient verbally. FALL SCREENING: Has the patient had 2 falls in the last year or 1 fall with injury or currently using an Ambulatory Assistive Device (Walker, Cane, Wheelchair, Crutches, etc.)? No PATIENT GENDER DATA: Female. status: : No status: N/A PATIENT RELEVANT IMPLANT DATA REVIEWED: Not Applicable RADIOLOGY DEPARTMENT: Mammography PERIPHERAL IV DATA: Not applicable SIGNED BY: RT Caroline(Jason) September 15, 2023 2:30 PM documented in this encounter [facility] 05-18-2023 History of Presen t illness Narrative Radiology Service Progress Note PATIENT NAME: Deepa Jordan DATE OF SERVICE: May 18, 2023 TIME: 12:11 PM PATIENT IDENTITY VERIFICATION COMPLETED USING TWO (2) IDENTIFIERS: Name and Date of confirmed by patient verbally. FALL SCREENING: Has the patient had 2 falls in the last year or 1 fall with injury or currently using an Ambulatory Assistive Device (Walker, Cane, Wheelchair, Crutches, etc.)? No PATIENT GENDER DATA: Female. status: : No status: NO. PATIENT RELEVANT IMPLANT DATA REVIEWED: Not Applicable RADIOLOGY DEPARTMENT: General X-ray: Exam(s) Completed: Spine X-Ray(s): Cervical AP / LAT / OBL and Lumbar AP / LAT / L5-S1 / OBL Pelvis X-Ray: Pelvis with Hip Bilateral Lower Extremity X-Ray(s): Knee, AP Only Bilateral PERIPHERAL IV DATA: Not applicable SIGNED BY: RT Ginny(R) May 18, 2023 12:11 PM documented in this encounter [facility] 06-25-2022 Miscellaneous Notes [address] [address] June 25, 2022 PID: [id number] Deepa Jordan [address] [place] [address] Dear Jordan, We are pleased to inform you that the results of your recent breast imaging exam on 06/25/2022 are normal. Early detection of cancer is very important. We also understand recommendations regarding breast cancer screening are controversial. Please discuss with your primary care provider which strategy is best for you and whether a mammogram is right for you. Your imaging studies and report will be kept on file at [facility] as part of your permanent medical record and are available for your continuing care. Thank you for allowing us to help in meeting your health care needs. Sincerely, Dr. Skinner Interpreting Radiologist [facility] (Normal over 40) documented in this encounter [facility] 06-25-2022 History of Presen t illness Narrative Radiology Service Progress Note PATIENT NAME: Deepa Jordan DATE OF SERVICE: June 25, 2022 TIME: 11:49 AM PATIENT IDENTITY VERIFICATION COMPLETED USING TWO (2) IDENTIFIERS: Name and Date of confirmed by patient verbally. FALL SCREENING: Has the patient had 2 falls in the last year or 1 fall with injury or currently using an Ambulatory Assistive Device (Walker, Cane, Wheelchair, Crutches, etc.)? No PATIENT GENDER DATA: Female. status: : No status: N/A PATIENT RELEVANT IMPLANT DATA REVIEWED: Not Applicable RADIOLOGY DEPARTMENT: Bone Density PERIPHERAL IV DATA: Not applicable SIGNED BY: DAVID Velazquez) June 25, 2022 11:49 AM documented in this encounter [facility] 06-25-2022 History of Presen t illness Narrative Radiology Service Progress Note PATIENT NAME: Deepa Jordan DATE OF SERVICE: June 25, 2022 TIME: 11:48 AM PATIENT IDENTITY VERIFICATION COMPLETED USING TWO (2) IDENTIFIERS: Name and Date of confirmed by patient verbally. FALL SCREENING: Has the patient had 2 falls in the last year or 1 fall with injury or currently using an Ambulatory Assistive Device (Walker, Cane, Wheelchair, Crutches, etc.)? No PATIENT GENDER DATA: Female. status: : No status: N/A PATIENT RELEVANT IMPLANT DATA REVIEWED: Not Applicable RADIOLOGY DEPARTMENT: Mammography PERIPHERAL IV DATA: Not applicable SIGNED BY: RT Caroline(Jason) June 25, 2022 11:48 AM documented in this encounter [facility] 08-13-2021 Note HNO ID: [id number] Author: DAVID Velazquez) Service: ? Author Type: Technologist Type: Progress Notes Filed: 08/13/2021 9:05 AM Note Text: Radiology Service Progress Note PATIENT NAME: Deepa Jordan DATE OF SERVICE: August 13, 2021 TIME: 9:05 AM PATIENT IDENTITY VERIFICATION COMPLETED USING TWO (2) IDENTIFIERS: Name and Date of confirmed by patient verbally. FALL SCREENING: Has the patient had 2 falls in the last year or 1 fall with injury or currently using an Ambulatory Assistive Device (Walker, Cane, Wheelchair, Crutches, etc.)? No PATIENT GENDER DATA: Female. status: : No status: N/A PATIENT RELEVANT IMPLANT DATA REVIEWED: Not Applicable RADIOLOGY DEPARTMENT: Mammography PERIPHERAL IV DATA: Not applicable SIGNED BY: RT Caroline(R) August 13, 2021 9:05 AM [facility] 07-22-2021 Note HNO ID: [id number] Author: DAVID Velazquez) Service: ? Author Type: Technologist Type: Progress Notes Filed: 07/22/2021 11:08 AM Note Text: Radiology Service Progress Note PATIENT NAME: Deepa Jordan DATE OF SERVICE: July 22, 2021 TIME: 11:07 AM PATIENT IDENTITY VERIFICATION COMPLETED USING TWO (2) IDENTIFIERS: Name and Date of confirmed by patient verbally. FALL SCREENING: Has the patient had 2 falls in the last year or 1 fall with injury or currently using an Ambulatory Assistive Device (Walker, Cane, Wheelchair, Crutches, etc.)? No PATIENT GENDER DATA: Female. status: : No status: N/A PATIENT RELEVANT IMPLANT DATA REVIEWED: Not Applicable RADIOLOGY DEPARTMENT: Mammography PERIPHERAL IV DATA: Not applicable SIGNED BY: RT Caroline(R) July 22, 2021 11:07 AM [facility] Evaluation note Diagnosis Onset Date Annual physical exam acute Wellness examination acute Erythematous papules of skin acute Pruritic dermatitis acute [facility] Work Phone: Evaluation note* Diagnosis Onset Date Resolution Status Erythematous papules of skin acute Pruritic dermatitis acute Mononucleosis syndrome acute Multiple joint pain acute Osteoarthritis of right hip acute [facility] Work Phone: Evaluation note* Diagnosis Onset Date Resolution Status Anxiety acute Fatigue acute Hypothyroidism (acquired) [facility] [place] Mononucleosis syndrome acute Multiple joint pain acute Weakness acute [facility] Work Phone: Evaluation note* Diagnosis Onset Date Resolution Status Anxiety acute Fatigue acute Hypothyroidism (acquired) [facility] [place] Mononucleosis syndrome acute Multiple joint pain acute Weakness acute Hypothyroidism (acquired) [facility] [place] Left otitis media acute Multiple joint pain acute Neck pain acute [facility] Work Phone: Evaluation note* Diagnosis Onset Date Resolution Status 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, acquired acute Urine incontinence acute Anemia acute B12 deficiency acute [facility] Work Phone: Summary Purpose Family History No Family History Records Found Relationship Condition Age at Onset Recorded Date/T gonzález Not Specified Deep vein thrombosis (DVT) Unknown Peripheral vascular disease Unknown Cerebrovascular accident (CVA) Unknown Advance Directives No Advanced Directives Records FoundThere may be information available, but it has not been provided by the sender.No Advanced Directives Records FoundNo Advanced Directives Records FoundNo Advanced Directives Records FoundNo Advanced Directives Records Found Chief Complaint Chief Complaint Description Start Date left hand pain Preliminary chief co mplaint data, not yet signed by the author as of Instructions Instruction Description Start Date CompletedPatient advised to follow-up with Primary Care Physician for BMI management. Assessments There may be information available, but it has not been provided by the sender. Review of System There may be information available, but it has not been provided by the sender. History of Present Illness There may be information available, but it has not been provided by the sender. Chief Complaint and Reason for Visit Chief Complaint Annual wellness exam medrefills & labs Itchy Rash Reason for Visit Annual physical exam Wellness examination Erythematous papules of skin Pruritic dermatitis Chief Complaint Itchy Rash Joint problem & Pain X3 months Reason for Visit Erythematous papules of skin Pruritic dermatitis Mononucleosis syndrome Multiple joint pain Osteoarthritis of right hip Chief Complaint Memory loss Reason for Visit Anxiety Fatigue Hypothyroidism (acquired) Mononucleosis syndrome Multiple joint pain Weakness Chief Complaint Memory loss Neck and head pain & stiffness(TSH) Reason for Visit Anxiety Fatigue Hypothyroidism (acquired) Mononucleosis syndrome Multiple joint pain Weakness Hypothyroidism (acquired) Left otitis media Multiple joint pain Neck pain Chief Complaint Vaginal bleeding/had hysterectomy UTI B12 inject Reason for Visit Prolapse of female b ladder, acquired Urine incontinence Anemia B12 deficiency Additional Source Comments INFORMATION SOURCE (unrecogn ized section and content) DATE CREATED AUTHOR 05/11/2020 [facility] DATE CREATED AUTHOR AUTHOR'S ORGANIZ ATION 11/05/2021 [facility] DATE CREATED AUTHOR AUTHOR'S ORGANIZ ATION 05/21/2024 [facility] DATE CREATED AUTHOR AUTHOR'S ORGANIZ ATION 09/29/2024 [facility] DATE CREATED AUTHOR AUTHOR'S ORGANIZ ATION 10/31/2024 [facility] Reason for Visit (unrecogniz ed section and content) Reason For Visit Description New - 1st visit with practice Preliminary reason f or visit data, not yet signed by the author as of left hand pain Source Comments (unrecognize d section and content) In the event this informatio n is protected by the Federal Confidentiality of Alcohol and Drug Abuse Patient Records regulations: The Federal rules restrict any use of the information to criminally investigate or prosecute any alcohol or drug abuse patient.[facility] CenterIn the event this information is protected by the Federal Confidentiality of Alcohol and Drug Abuse Patient Records regulations: The Federal rules restrict any use of the information to criminally investigate or prosecute any alcohol or drug abuse patient.[facility] CenterIn the event this information is protected by the Federal Confidentiality of Alcohol and Drug Abuse Patient Records regulations: The Federal rules restrict any use of the information to criminally investigate or prosecute any alcohol or drug abuse patient.[facility] CenterIn the event this information is protected by the Federal Confidentiality of Alcohol and Drug Abuse Patient Records regulations: The Federal rules restrict any use of the information to criminally investigate or prosecute any alcohol or drug abuse patient.[facility] CenterIn the event this information is protected by the Federal Confidentiality of Alcohol and Drug Abuse Patient Records regulations: The Federal rules restrict any use of the information to criminally investigate or prosecute any alcohol or drug abuse patient.[facility] CenterIn the event this information is protected by the Federal Confidentiality of Alcohol and Drug Abuse Patient Records regulations: The Federal rules restrict any use of the information to criminally investigate or prosecute any alcohol or drug abuse patient.[facility] CenterIn the event this information is protected by the Federal Confidentiality of Alcohol and Drug Abuse Patient Records regulations: The Federal rules restrict any use of the information to criminally investigate or prosecute any alcohol or drug abuse patient.[facility] CenterIn the event this information is protected by the Federal Confidentiality of Alcohol and Drug Abuse Patient Records regulations: The Federal rules restrict any use of the information to criminally investigate or prosecute any alcohol or drug abuse patient.[facility] CenterIn the event this information is protected by the Federal Confidentiality of Alcohol and Drug Abuse Patient Records regulations: The Federal rules restrict any use of the information to criminally investigate or prosecute any alcohol or drug abuse patient.[facility] CenterIn the event this information is protected by the Federal Confidentiality of Alcohol and Drug Abuse Patient Records regulations: The Federal rules restrict any use of the information to criminally investigate or prosecute any alcohol or drug abuse patient.[facility] CenterIn the event this information is protected by the Federal Confidentiality of Alcohol and Drug Abuse Patient Records regulations: The Federal rules restrict any use of the information to criminally investigate or prosecute any alcohol or drug abuse patient.[facility] Care Teams (unrecognized sec tion and content) Manager Nuclear Relationship Specialty Start Date End Date Elmo Ackerman, BROADCAST NEWS PRODUCER.[facility] [address] [phone] PCP - General Family Practice 07/28/17 Manager Nuclear Relationship Specialty Start Date End Date Elmo Ackerman, BROADCAST NEWS PRODUCER.PROCESSING [employer]OCI[employer] [address] [place], [place] [phone] PCP - General Family Practice 07/28/17 Team Status: Active Member Role Status Dates No Primary Care Physician Family Provider Active Elmo Ackerman MARKETING SALES CONSULTANT, MARKETING SALES CONSULTANT-C Primary Care Provider Active Team Status: Inactive Member Role Status Dates Elmo Ackerman MARKETING SALES CONSULTANT, MARKETING SALES CONSULTANT-C Primary Care Pr ovider, Attending Provider, Referring Provider Active Team Status: Inactive Member Role Status Dates Elmo Ackerman MARKETING SALES CONSULTANT, MARKETING SALES CONSULTANT-C Primary Care Provider, Attend ing Provider Active Manager Nuclear Relationship Specialty Start Date End Date Elmo Ackerman, BROADCAST NEWS PRODUCER.PROCESSING ASSOCIATE [address] [place], [place] [phone] PCP - General Family Medicine 07/28/17 Manager Nuclear Relationship Specialty Start Date End Date Elmo Ackerman, BROADCAST NEWS PRODUCER.PROCESSING ASSOCIATE [address] [place], [place] [phone] PCP - General Family Medicine 07/28/17 Manager Nuclear Relationship Specialty Start Date End Date Elmo Ackerman, BROADCAST NEWS PRODUCER.PROCESSING ASSOCIATE [address] [place], [place] [phone] PCP - General Family Medicine 07/28/17 Team Status: Inactive Member Role Status Dates Elmo Ackerman MARKETING SALES CONSULTANT, MARKETING SALES CONSULTANT-C Primary Care Provider Active Dr. Tati Rivera MD Attending Provider, Referring Aiyana rojo Active Manager Nuclear Relationship Specialty Start Date End Date Elmo Ackerman, BROADCAST NEWS PRODUCER.PROCESSING ASSOCIATE [address] [place], [place] [phone] PCP - General Family Medicine 07/28/17 Goals (unrecognized section and content) Goals may be documented in a n alternate sectionGoals may be documented in an alternate sectionGoals may be documented in an alternate sectionGoals may be documented in an alternate sectionGoals may be documented in an alternate section FOR RECORDS PERTAINING TO PATIENTS WHO ARE OR HAVE BEEN ENROLLED IN A CHEMICAL DEPENDENCY/SUBSTANCEABUSE PROGRAM, SOME INFORMATION MAY BE OMITTED. This clinical summary was aggregated from multiple sources. Caution should be exercised in using it in the provision of clinical care. This summary normalizes information from multiple sources, and as a consequence, information in this document may materially change the coding, format and clinical context of patient data. In addition, data may be omitted in some cases. CLINICAL DECISIONS SHOULD BE BASED ON THE PRIMARY CLINICAL RECORDS. [facility] [employer] provides no warranty or guarantee of the accuracy or completeness of information in this document.
[2025-05-23 22:34] LABS: Free T3 2.8 pg/mL (2.18-3.98)
== END | disposition home or self-care (01) ==
PROVIDERS: PCP Nurse Practitioner; Referring Provider Nurse Practitioner; Visit Provider Nurse Practitioner
DX: G93.31 Postviral fatigue syndrome (principal); E03.9 Hypothyroidism, unspecified
CPT/HCPCS: 84439; 84443; 84481; 84482

== ENCOUNTER 2025-08-30 21:54 | Outpatient (CLI) | payer MEDICARE, SELFPAY ==
--- OUTSIDE RECORDS SUMMARY | 2025-08-30 21:57 | XMS RPT_ITS | CCD ---
Author Organization [facility] Care Team Providers Care Civil Designer Name Role Phone Brian ADAMSON, Arun Melendez Unavailable Ackerman ANIMAL NURSE.SUPPORT DIRECTOR, Elmo L Primary Care Provide r Ackerman ANIMAL NURSE.SUPPORT DIRECTOR, Elmo L Primary Care Provide r Ackerman ANIMAL NURSE.SUPPORT DIRECTOR, Elmo L Primary Care Provide r ACKERMAN, ELMO L Primary Care Unavailable MATHEUS GARZA Attending Unavailable ACKERMAN, ELMO L Primary Care Unavailable Ackerman ADMEASURER-C, Elmo Primary Care Provider Dr. Tati Rivera MD Attending Provider [phone] Ackerman ADMEASURER-C, Elmo Attending Provider Anthony ADMEASURER-C, Elmo Referring Provider Ackerman, Elmo Referring Unavailable Ackerman, Elmo Primary Care Unavailable Ackerman, Elmo Attending Unavailable Ackerman, Elmo Referring Unavailable Ackerman, Elmo Primary Care Unavailable Ackerman, Elmo Attending Unavailable DUANE, MIRANDA L Primary Care Unavailable DUANE, MIRANDA L Primary Care Unavailable DUANE, MIRANDA L Primary Care Unavailable DUANE, MIRANDA L Primary Care Unavailable Allergies Allergy Classification Reported Allergen(s) Allergy Type Date of Onset Reaction(s) Facility (1 source) House dust mite; Translations: [DUST MITES] allergy to substance 0 [facility] Work Phone: (1 source) Kingdom Animalia; Translations: [ANIMALS] allergy to substance 0 [facility] Work Phone: (1 source) Mold Extract; Translations: [MOLD] Drug Allergy 0 [facility] Work Phone: (1 source) PLANT POLLENS; Translations: [PLANT POLLENS] allergy to substance 0 [facility] Work Phone: (1 source) GENERAL ANESTHETIC drug allergy 0 [facility] Work Phone: Medications Current Medications Medication Drug Class(es) Dates Sig (Normalized) Sig (Original) ALPRAZolam 0.5 mg oral tablet (20 sources) Benzodiazepine Start: 12-08-2019 End: 08-28-2024 take 1 tablet by mouth once daily Alprazolam 0.5 mg tablet Active 0.5 mg PO DAILY 30 August 28, 2024 4:56pm Start: 02-17-2019 End: 12-08-2019 take 1 tablet by mouth at bedtime as needed for anxiety Alprazolam 0.25 mg tablet Discontinued 0.25 mg PO AT BEDTIME as needed for anxiety 16 03February 17, 2019 12:00am December 08, 2019 6:13pm Start: 02-17-2019 End: 02-17-2019 take 1 tablet by mouth twice daily Alprazolam 0.5 mg tablet Discontinued 0.5 mg PO TWICE A DAY February 17, 2019 [...] as in structed twice daily as needed. estradiol 0.1 mg/ml vaginal cream (1 source) Estrogen Start: 08-28-2024 Estradiol 0.01 % (0.1 mg/gram) cream Active 1 g VAGINAL 3 TIMES A WEEK August 28, 2024 1:00am ezetimibe 10 mg oral tablet (1 source) Dietary Cholesterol Absorption Inhibitor Start: 09-08-2024 take 1 tablet by mouth once daily Ezetimibe (Zetia) 10 mg tablet Active 10 mg PO daily 90 September 08, 2024 1:00am famotidine 40 mg oral tablet (3 sources) Histamine-2 Receptor Antagonist Start: 05-23-2025 take 1 tablet by mouth twice daily Famotidine 40 mg tablet Active 40 mg PO TWICE A DAY 60 May 23, 2025 12:00am Start: 06-17-2023 End: 05-23-2025 take 1 tablet by mouth once daily Famotidine 20 mg tablet Discontinued 20 mg PO DAILY June 17, 2023 12:00am May 23, 2025 6:08pm levothyroxine sodium 0.075 mg oral tablet (11 sources) l-Thyroxine take 1 tablet by mouth once daily before breakfast levothyroxine (SYNTHROID) 75 mcg tablet Take 75 mcg by mouth daily before breakfast. Active Comment on above: Take 75 mcg by mouth daily before breakfast. lisinopril 10 mg oral tablet (20 sources) Angiotensin Converting Enzyme Inhibitor Start: 02-18-20 End: 08-28-20 24 take 1 tablet by mouth once daily Lisinopril 10 mg tablet Active 10 mg PO DAILY 90 August 28, 2024 4:54pm Comment on above: Take 10 mg by mouth once daily. pantoprazole 40 mg delayed release oral tablet (11 sources) Proton Pump Inhibitor Start: 12-18-19 18 take 1 tablet by mouth once daily pantoprazole DR (PROTONIX) 40 mg tablet Take 1 tablet by mouth once daily. 30 tablet 12/17/2017 Active Comment on above: Take 1 tablet by nani once daily. rOPINIRole 0.25 mg oral tablet (17 sources) Nonergot Dopamine Agonist Start: 06-05-20 21 End: 08-28-20 take 1 tablet by mouth three times daily Ropinirole 0.25 mg tablet Active 0.25 mg PO THREE TIMES A DAY 270 90 August 28, 2024 4:55pm restless legs Thyroid (Pork) ([place] Thyroid) 30 mg tablet (6 sources) Start: 08-30-20 take 1 tablet by mouth once daily Thyroid (Pork) ([place] Thyroid) 30 mg tablet Active 60 mg PO DAILY 180 August 30, 2024 3:40pm Start: 06-17-2023 End: 08-30-2024 take 1 tablet by mouth once daily Thyroid (Pork) ([place] Thyroid) 30 mg tablet Discontinued 60 mg PO DAILY 90 June 17, 2023 3:16pm August 30, 2024 3:41pm Start: 06-17-2023 take 1 tablet by nani th once daily Thyroid (Pork) ([place] Thyroid) 30 mg tablet Active 60 MG PO DAILY June 17, 2023 3:16pm Start: 04-23-2023 End: 06-17-2023 take 1 tablet by mouth once daily Thyroid (Pork) ([place] Thyroid) 30 mg tablet Discontinued 60 mg PO DAILY April 23, 2023 1:06pm June 17, 2023 3:16pm Start: 04-23-2023 End: 06-17-2023 take 1 tablet by mouth once daily Thyroid (Pork) ([place] Thyroid) 30 mg tablet Discontinued 60 MG PO DAILY April 23, 2023 1:06pm June 17, 2023 3:16pm Start: 04-23-2023 take 1 tablet by nani th once daily Thyroid (Pork) ([place] Thyroid) 30 mg tablet Active 60 MG PO DAILY April 23, 2023 1:06pm Vibegron (1 source) Start: 08-28-2024 take 1 tablet by nani th once daily Vibegron ([place]) 75 mg tablet Active 75 mg PO daily August 28, 2024 1:00am Completed/Discontinued Medications Medication Drug Class(es) Dates Sig (Normalized) Sig (Original) 200 actuat albuterol 0.09 mg/actuat metered dose inhaler (12 sources) beta2-Adrenergic Agonist Start: 09-04-2020 PROAIR HFA 108 (90 Base) MCG/ACT AERS as directed as needed ALBUTEROL SULFATE [id number] Alisha Benavides LPN take 2.5 mg by inhal ation every four hours as needed albuterol (PROVENTIL) 2.5 mg /3 mL (0.08 3 %) nebulizer solution Use 2.5 mg via nebulizer every 4 hours as needed. Active Comment on above: Use 2.5 mg via nebul izer every 4 hours as needed. amoxicillin 875 mg oral tablet (3 sources) Penicillin-class Antibacterial Start: 04-23-20 End: 06-17-20 take 1 tablet by mouth twice daily Amoxicillin 875 mg tablet Discontinued 875 mg PO TWICE A DAY April 23, 2023 12:00am June 17, 2023 3:06pm cefdinir 300 mg oral capsule (6 sources) Cephalosporin Antibacterial Start: 05-07-20 End: 06-17-20 take 1 capsule by mouth twice daily Cefdinir 300 mg capsule Discontinued 300 mg PO TWICE A DAY May 07, 2022 12:00am June 17, 2022 4:36pm cetirizine hydrochloride 10 mg oral tablet (18 sources) Histamine-1 Receptor Antagonist Start: 09-04-20 CETIRIZINE HCL 10 MG TABS 1 tablet daily CETIRIZINE HCL [id number] Alisha Benavides LPN Start: 02-17-2019 take 1 tablet by nani th once daily Cetirizine (Children's Zyrtec Allergy) 1 0 mg tablet,disintegrating Active 10 mg PO DAILY February 17, 2019 12:00am Comment on above: Take 10 mg by mouth once daily. CINNAMON TABS (1 source) Non-Standardized Food Allergenic Extract Start: CINNAMON TABS daily as directed CINNAMON TABS [id number] Alisha Benavides LPN ciprofloxacin 500 mg oral tablet (2 sources) Quinolone Antimicrobial Start: End: take 1 tablet by mouth twice daily Ciprofloxacin Hcl (Cipro) 500 mg tablet Discontinued 500 mg PO TWICE A DAY 14 July 26, 2023 12:00am November 26, 2023 6:42pm clindamycin 150 mg oral capsule (6 sources) Lincosamide Antibacterial Start: End: take 1 capsule by mouth three times daily Clindamycin Hcl 150 mg capsule Discontinued 150 mg PO THREE TIMES A DAY 30 10 July 31, 2021 12:00am August 09, 2021 12:00am August 10, 2021 12:01am dexamethasone 6 mg oral tablet (6 sources) Corticosteroid Start: End: take 1 tablet by mouth twice daily Dexamethasone 6 mg tablet Discontinued 6 mg PO TWICE A DAY 20 May 07, 2022 12:00am June 17, 2022 4:36pm doxycycline hyclate 100 mg oral capsule (5 sources) Tetracycline-class Drug Start: End: take 1 capsule by mouth twice daily Doxycycline Hyclate 100 mg capsule Discontinued 100 mg PO TWICE A DAY 60 0 July 24, 2022 12:00am October 29, 2022 1:58pm ergocalciferol 1.25 mg oral capsule (6 sources) Provitamin D2 Compound Start: End: Ergocalciferol (Vitamin D2) 50,000 unit capsule Discontinued 20528 U PO EVERY WEEK February 17, 2019 12:00am March 06, 2020 4:14pm magnesium chloride 598 mg delayed release oral tablet (12 sources) Start: End: Magnesium Chloride 70 mg tablet,delayed release (DR/EC) Discontinued 35 mg PO TWICE A DAY March 06, 2020 4:15pm March 17, 2023 7:47pm Start: 03-06-2020 End: 03-17-2023 take 35 mg by mouth twice daily Magnesium Chloride Dis continued 35 MG PO TWICE A DAY March 06, 2020 4:15pm March 17, 2023 7:47pm Start: 12-08-2019 End: 03-06-2020 take 1 tablet by mouth three times daily Magnesium Chloride 70 mg tablet,delayed release (DR/EC) Discontinued 70 mg PO THREE TIMES A DAY December 08, 2019 1:00am March 06, 2020 4:17pm mirtazapine 15 mg oral tablet (6 sources) Start: 02-17-2019 End: 02-17-2019 take 1 tablet by mouth at bedtime Mirtazapine 15 mg tablet Discontinued 15 mg PO AT BEDTIME February 17, 2019 12:00am [...] 17, 2019 12:00am March 06, 2020 4:15pm Multivitamin tablet (1 source) Start: 02-17-2019 End: 03-06-2020 Multivitamin tablet Discontinued 1 {tbl} PO DAILY February 17, 2019 12:00am March 06, 2020 4:15pm Mize-3 Fatty Acids (Fish Oil Concentrate) 1,000 mg capsule (6 sources) Start: 02-17-2019 End: 03-06-2020 take 1 capsule by mouth once daily Mize-3 Fatty Acids (Fish Oil Concentrate) 1,000 mg capsule Discontinued 1000 mg PO DAILY February 17, 2019 12:00am March 06, 2020 4:16pm Start: 02-17-2019 End: 03-06-2020 take 1 capsule by mouth once daily Mize-3 Fatty Acids (Fish Oil Concentrate) 1,000 mg capsule Discontinued 1000 MG PO DAILY February 16, 2019 11:00pm March 06, 2020 3:16pm Start: 02-17-2019 End: 03-06-2020 take 1 capsule by mouth once daily Mize-3 Fatty Acids (Fish Oil Concentrate) 1,000 mg capsule Discontinued 1000 MG PO DAILY February 17, 2019 12:00am March 06, 2020 4:16pm omeprazole 20 mg delayed release oral tablet (13 sources) Proton Pump Inhibitor Start: 09-04-2020 OMEPRAZO LE 20 MG TBEC 1 tablet daily as needed OMEPRAZOLE [id number] Alisha Benavides LPN Start: 12-08-2019 End: 06-17-2023 take 1 capsule by mouth once daily as needed Omeprazole 20 mg capsule,delayed release(DR/EC) Discontinued 20 mg PO DAILY as needed March 06, 2020 4:16pm June 17, 2023 3:07pm predniSONE 10 mg oral tablet (12 sources) Start: 07-14-2022 End: 07-18-2022 Prednisone 10 mg tablet Discontinued 20 mg PO TWICE A DAY as needed for poison grace 30 4 July 14, 2022 12:00am July 17, 2022 12:00am July 18, 2022 12:09am Allergic contact dermatitis due to plants, except food 2 po bid 4D,1 po bid for 4 D, 1 po qd for 4 D 1/2 po qd for 2 days Start: 07-14-2022 End: 07-18-2022 Prednisone Discontinued 20 M G PO TWICE A DAY 30 July 14, 2022 12:00am July 18, 2022 12:09am 2 po bid 4D,1 po bid for 4 D, 1 po qd for 4 D 1/2 po qd for 2 days Start: 08-05-2020 End: 06-05-2021 take 2 tablets by mouth once daily Prednisone 20 mg tablet Discontinued 40 mg PO DAILY August 05, 2020 12:00am June 05, 2021 5:51pm Start: 08-05-2020 End: 06-05-2021 take 40 mg by mouth once daily Prednisone Discontinued 40 MG PO DAILY August 05, 2020 12:00am June 05, 2021 5:51pm thyroid (mcfp) 30 mg oral tablet (20 sources) Start: 09-04-2020 ARMOUR THYROID 30 MG TABS 1 tablet daily THYROID [id number] Alisha Benavides LPN Start: 09-04-2020 ARMOUR THYROID 15 MG TABS 1 tablet daily THYROID [id number] Alisha Benavides LPN Start: 02-17-2019 End: 04-23-2023 Thyroid (Pork) ([place] Thyro id) 30 mg tablet Discontinued 30 mg PO DAILY June 30, 2022 4:27pm April 23, 2023 1:07pm take with the 15 mg orally once a day to =45 mg Start: 02-17-2019 End: 04-23-2023 Thyroid (Pork) ([place] Thyro id) 15 mg tablet Discontinued 15 mg PO DAILY June 30, 2022 4:27pm April 23, 2023 1:06pm take with 30 mg to make 45 mg Start: 02-17-2019 End: 02-17-2019 take 1 tablet by mouth once daily Thyroid (Pork) ([place] Thyroid) 30 mg tablet Discontinued 30 mg PO DAILY February 17, 2019 12:00am February 17, 2019 4:14pm Start: 02-17-2019 End: 02-17-2019 take 1 tablet by mouth once daily Thyroid (Pork) ([place] Thyroid) 15 mg tablet Discontinued 15 mg PO DAILY February 17, 2019 12:00am February 17, 2019 4:14pm Comment on above: Take 30 mg by mouth once daily. Take 15 mg by mouth once daily. Vitamin B Complex (Vitamins B Complex) capsule (6 sources) Start: 02-17-2019 End: 06-17-2022 Vitamin B Complex (Vitamins B Complex) capsule Discontinued 1 NMA PO DAILY February 17, 2019 12:00am June 17, 2022 4:37pm Start: 02-17-2019 End: 06-17-2022 take 1 capsule [...] Problem Date Documented Date Episodic/Chronic Anxiety disorders (7 sources) Anxiety; Translations: [Anxiety disorder, unspecified] Onset: 05-21-2025 02-17-2019 Chronic Cardiac dysrhythmias (2 sources) Other specified cardiac arrhythmias; Translations: [Ventricular bigeminy] Onset: 05-21-2025 05-23-2025 Chronic Deficiency and other anemia (6 sources) Anemia; Translations: [Anemia, unspecified] 08-12-2021 Episodic Diverticulosis and diverticulitis (1 source) Diverticulitis of large intestine; Translations: [Diverticulitis of large intestine without perforation or abscess without bleeding] 05-18-2024 Chronic Esophageal disorders (1 source) Gastro-esophageal reflux disease without esophagitis; Translations: [Gastroesophageal reflux disease, unspecified whether esophagitis present] Onset: 05-21-2025 Chronic Essential hypertension (6 sources) Hypertensive disorder; Translations: [Essential (primary) hypertension] 12-08-2019 Chronic Genitourinary symptoms and ill-defined conditions (2 sources) Urinary incontinence; Translations: [Unspecified urinary incontinence] 11-26-2023 Chronic Genitourinary symptoms and ill-defined conditions (3 sources) Dysuria; Translations: [Dysuria] 07-26-2023 Episodic Headache; including migraine (3 sources) Chronic headache disorder; Translations: [Chronic headache disorder] 04-22-2023 Episodic Malaise and fatigue (12 sources) Fatigue; Translations: [Other fatigue] 08-12-2021 Episodic Nonspecific chest pain (1 source) Other chest pain; Translations: [Atypical chest pain] Onset: 05-21-2025 Episodic Nutritional deficiencies (6 sources) Undernutrition; Translations: [Unspecified protein-calorie malnutrition] 08-01-2021 Chronic Nutritional deficiencies (2 sources) Cobalamin deficiency; Translations: [Deficiency of other specified B group vitamins] 02-03-2024 Episodic Osteoarthritis (6 sources) Unilateral primary osteoarthritis of first carpometacarpal joint, left hand; Translations: [Osteoarthritis of right hip joint] Onset: 09-18-2020 09-18-2020 Chronic Osteoporosis (6 sources) Osteoporosis; Translations: [Age-related osteoporosis without current pathological fracture] 06-17-2022 Chronic Other connective tissue disease (1 source) Other synovitis and tenosynovitis, left forearm; Translations: [Other synovitis and tenosynovitis, left forearm] Onset: 09-18-2020 09-18-2020 Episodic Other connective tissue disease (6 sources) Spasm; Translations: [Other muscle spasm] 06-05-2021 Episodic Other connective tissue disease (6 sources) Pain in thumb ; Translations: [Pain in left finger(s)] 08-05-2020 Episodic Other connective tissue disease (1 source) Myalgia, unspecified site; Translations: [Myalgias] Onset: 05-21-2025 Episodic Other hereditary and degenerative nervous system conditions (11 sources) Dystonia; Translations: [Dystonia, unspecified] Onset: 12-16-2017 12-16-2017 Chronic Other inflammatory condition of skin (6 sources) Pruritus of skin; Translations: [Pruritus, unspecified] 07-14-2022 Episodic Other liver diseases (6 sources) Elevated liver enzymes level; Translations: [Abnormal levels of other serum enzymes] 08-01-2021 Episodic Other nervous system disorders (1 source) Carpal tunnel syndrome, left upper limb; Translations: [Carpal tunnel syndrome, left upper limb] Onset: 09-18-2020 09-18-2020 Chronic Other non-traumatic joint disorders (6 sources) Decreased range of thumb movement; Translations: [Stiffness of unspecified hand, not elsewhere classified] 08-05-2020 Episodic Other non-traumatic joint disorders (6 sources) Hip pain; Translations: [Pain in left hip] 06-17-2022 Episodic Other non-traumatic joint disorders (5 sources) Multiple joint pain; Translations: [Pain in unspecified joint] 10-27-2022 Episodic Other screening for suspected conditions (not mental disorders or infectious disease) (13 sources) Patient encounter status; Translations: [Encounter for screening mammogram for malignant neoplasm of breast] Onset: 10-26-2024 02-17-2019 Episodic Other skin disorders (6 sources) Papule of skin; Translations: [Other skin changes] 07-14-2022 Episodic Otitis media and related conditions (3 sources) Otitis media; Translations: [Otitis media, unspecified, left ear] 04-23-2023 Episodic Prolapse of female genital organs (2 sources) Cystocele; Translations: [Cystocele, unspecified] 11-26-2023 Chronic Spondylosis; intervertebral disc disorders; other back problems (3 sources) Neck pain; Translations: [Cervicalgia] 04-22-2023 Episodic Thyroid disorders (6 sources) Acquired hypothyroidism; Translations: [Hypothyroidism, unspecified] 02-17-2019 Chronic Unclassified (1 source) Postviral fatigue syndrome; Translations: [Postviral fatigue syndrome] Onset: 05-28-2025 Urinary tract infections (15 sources) Acute cystitis; Translations: [Acute cystitis without hematuria] Onset: 12-16-2017 12-16-2017 Episodic Viral infection (5 sources) Infectious mononucleosis; Translations: [Infectious mononucleosis, unspecified without complication] 10-27-2022 Episodic Past or Other Problems Problem Classification Problem Date Documented Date Episodic/Chronic Noninfectious gastroenteritis (11 sources) Ileitis; Translations: [Noninfective gastroenteritis and colitis, unspecified] Onset: 12-16-2017 12-16-2017 Episodic Unclassified (1 source) Problem Unclassified (6 sources) BONE CHIP PRESSURE ON THE NERVE 05-18-2022 Unclassified (6 sources) BUNIONECTOMY R FOOT 05-18-2022 Unclassified (6 sources) LIPOSUCTION 05-18-2022 Unclassified (6 sources) HUSSEIN CALDERÓN 05-18-2022 Results Test Name Value Interpretation Reference Range Facility AMB CARD Physician Progress Noteon 08-09-2025 AMB CARD Physician Progress Note DEEPA JORDAN :1955 Registration Date:08/01/2025 Assessment/Plan Patient is a 69-year-old female presenting for evaluation of palpitations and ventricular ectopy. This Visit Diagnosis 1. Atypical chest pain/(R07.89: Other chest pain) - Resolved. Ordered: 2. HTN (hypertension)/(I10: Essential (primary) hypertension) - Well controlled on lisinopril 10 mg. Ordered: 3. HLD (hyperlipidemia)/(E78 .5: Hyperlipidemia, unspecified) - Reporting dietary control. Followed by PCP. Ordered: 4. PVC (premature ventricular contraction)/(I49.3: Ventricular premature depolarization) -Minimal ventricular ectopy on Zio. Ordered: 5. 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 - Echocardiogram normal except for mild aortic valvular sclerosis; no evidence of structural heart disease or arrhythmogenic substrate. - Reassured patient regarding benign nature of findings; no indication for antiarrhythmic therapy at this time. - Advised monitoring for increased frequency or severity of symptoms; instructed to avoid excess caffeine, alcohol, and manage stress as these may exacerbate ectopy. - No medication changes recommended; continue current regimen for comorbid conditions as previously prescribed. - If symptoms increase or become bothersome, consider switching antihypertensive therapy to an agent that may also suppress ectopy. - If palpitations become more frequent or predictable, consider PRN medication for symptom control. - Plan for routine follow-up in 1 year, with earlier evaluation if symptoms worsen or become more frequent. Chief Complaint follow up from testing History of Present Illness Disclaimer: The content of this note was generated by an artificial intelligence (AI) language model version 25.Q3.2.0 Patient consented to the use of AI The patient is a 69-year-old female with hypertension, hyperlipidemia, chest pain, Batsheva's thyroiditis and palpitations, presenting to review Zio and echocardiogram results. Palpitations and Family History The patient reports intermittent episodes of heart 'twitches' and palpitations, described as sudden, brief sensations that startle her but are less alarming now that she is aware of them. She experienced these episodes both before and during a recent two-week trip, and while wearing the Zio monitor, she felt some events but did not always record them. She recalls one episode occurring while sitting and arguing with her , and associates some episodes with stress. The palpitations are characterized by a brief pause or 'catching' sensation, sometimes accompanied by a fluttery or uncomfortable feeling, lasting only a few seconds. She denies any recent significant viral illness prior to onset. The symptoms began suddenly after a haircut, with strong 'jabs.' She has not required emergency care for these symptoms, though she was advised in the emergency room to follow up with cardiology. She prefers to monitor the symptoms rather than start new medications. She reports her blood pressure is well controlled. Zio monitor results showed multiple episodes SVT, and echocardiogram revealed normal LV function, mild aortic valve sclerosis. She is aware of potential triggers such as caffeine, stress, and alcohol, and currently limits coffee to one 10-ounce cup daily. She occasionally consumes alcoholic beverages, most recently three drinks during her trip. The palpitations do not significantly impact her daily activities. She notes that her brother has had major heart surgery, which motivates her to monitor her own cardiac health. BP 112/70. Thyroid Disease, Fatigue, and Weight Changes The patient has a history of Batsheva's thyroiditis and reports feeling very tired, run down, and having difficulty staying awake, describing these symptoms as feeling 'lousy' but not acutely ill. She believes her Batsheva's may be flaring currently and suspects her thyroid function may be abnormal. She also has a history of Arcelia-James virus and Lyme disease. She continues to take thyroid medication and expresses a desire to discontinue it but recognizes the necessity. The patient reports a weight loss of 30 pounds, followed by a recent gain of 10 pounds. She is following a weight loss program and is aware of her dietary intake, including limiting coffee and using protein supplements. Medication Use The patient currently takes thyroid medication, lisinopril for hypertension, and omeprazole for acid reflux, though she does not take omeprazole regularly unless eating out. She also takes [id number] flaxseed oil for eye parish (more content not included)... Normal [facility] AMB CARD Physician Progress Noteon 07-03-2025 AMB CARD Physician Progress Note DEEPA JORDAN :1955 Registration Date:07/03/2025 Assessment/Plan This Visit Diagnosis 1. Atypical chest pain R07.89 Negative stress test and normal EF 2. HTN (hypertension) I10 3. HLD (hyperlipidemia) E78.5 4. Batsheva thyroiditis E06.3 5. Palpitations R00.2 will get an echo to assess EF 6. PVC (premature ventricular contraction) I49.3 will give her Zio patch 7.Will leave her on current medications and follow up in one month History of Present Illness Disclaimer: The content of this note was generated by an artificial intelligence (AI) language model version 25.Q3.1.0 Mrs Jordan is 69 yr old lady with hypertension, high cholesterol, and Batsheva's thyroiditis, presenting for follow-up after an emergency room visit for palpitations and chest discomfort. No Prior history of myocardial infarction stroke or peripheral vascular disease. No history of any COPD or heart failure or known valvular artery disease. She never Had a stress test or cardiac catheterization. Palpitations and Chest Discomfort The patient reports a sudden onset of chest fullness or tightness followed by intermittent sharp, stabbing pains in the chest, which caused her to flinch when standing. These brief episodes occurred in clusters and recurred later the same day. She presented to the emergency room and was diagnosed with bigeminy, with instructions to follow up with a wound care coordinator. She states these symptoms had not occurred before that day. She rarely consumes caffeine, primarily drinks water, and notes that palpitations are more noticeable at night when it is quiet. She describes the episodes as coming and going, without persistent symptoms. Shortness of Breath The patient experiences shortness of breath, particularly when outdoors in humid conditions, sometimes accompanied by panting after exertion. She receives immunotherapy for ragweed allergies and reports that her symptoms have been worse this year. She rarely uses her rescue inhaler and was recently evaluated for her respiratory status. Medical, Family, and Social History Her medical history includes hypertension managed with medication, high cholesterol with previously abnormal ratios, and Batsheva's thyroiditis for which she has taken two 30 mg pills daily for 10 to 12 years, with the dose increased about two years ago. She reports a history of borderline diabetes with a recent glucose of 109, but denies a diagnosis of diabetes. She has lost approximately 30 pounds through increased physical activity, including walking and gardening for extended periods. She denies any history of heart attack. She quit smoking 18 years ago and drinks alcohol infrequently. Her father's side of the family has a history of heart disease, including half-brothers with heart problems. One half-brother underwent extensive cardiac surgery for a genetic heart disorder and aortic aneurysm at the [facility], though the specific genetic condition is unknown. Medication Reconciliation What How Much When Instructions Unchanged albuterol = Proventil, Ventolin (Albuterol (Eqv-ProAir HFA)) Inhalation EVERY SIX HOURS Unchanged ALPRAZolam (Xanax 0.5 mg oral tablet) Oral THREE TIMES A DAY Unchanged cetirizine-pseudoephe drine (ZyrTEC-D) Oral TWICE A DAY Unchanged cyanocobalamin (Vitamin B12) DAILY Unchanged docusate (Colace) Oral TWICE A DAY Unchanged famotidine (famotidine 40 mg oral tablet) Oral AT BEDTIME Unchanged lisinopril (lisinopril 10 mg oral tablet) Oral DAILY Unchanged magnesium gluconate Oral TWICE A DAY Unchanged melatonin (melatonin 10 mg oral tablet) Oral AT BEDTIME Unchanged omeprazole Oral DAILY Unchanged rOPINIRole = requip (rOPINIRole 0.25 mg oral tablet) Oral THREE TIMES A DAY Unchanged thyroid desiccated ([place] Thyroid) Oral DAILY Unchanged vibegron (Gemtesa 75 mg oral tablet) 1 Tabs Oral DAILY Cardiac History No qualifying data available. Physical Exam NECK: JVP is not elevated: Good carotid pulses and no bruit CVS; Normal heart sounds. No murmur and no gallop. No rub BP: 128/80 mm Hg LUNGS: No rhonchi and no wheeze: Clear breath sounds ADOMEN: Benign EXTREMITIES: Good distal pulses. No edema of legs Vitals & Measurements Temperature Temporal (F): 98.5 degF (07/03/25 14:33:00) Apical Heart Rate: 67 bpm (07/03/25 14:33:00) Height/Length Measured: 160 cm (07/03/25 14:33:00) Weight Measured: 83 kg (07/03/25 14:33:00) Body Mass Index Measured: 32.42 kg/m2 (07/03/25 14:33:00) Weight Measured - lbs2: 182 lb (07/03/25 14:33:00) Height/Length Measured - in2: 63 in (07/03/25 14:33:) Body Mass Index Measured English2: 32.24 kg/m2 (07/03/25:33:) BSA: 1.91 m2 (07/03/25:33:) Ht/Wt Measurement Refused by Patient?2: No (07/03/25 14:33:) Social History Alcohol - No Risk Substance Abuse - No Risk Tobacco - No Risk Family History Heart disease: Father and Brother. Health Status Family Member(s) . (more content not included)... Normal [facility] T3 Reverseon 05-28-2025 T3 REVERSE 12.5 ng/dL Normal 9.2-24.1 [facility] Comment on above: Order Comment: Test( s) 568646-Lrdngpo T3, Serum was developed and its performance characteristics determined by [facility]. It has not been cleared or approved by the Food and Drug Administration. N Result Comment: Perf ormed at: - [facility] [id number] Color Worker: Kory Holley MD, Phone: [phone] Performed By: #### L 3300.7100, L5019587, L506.0400, L501.35383 #### [facility] [address] [place], [place], [id number] Free P1Ahjrzfn By: Elmo stephen on 05-23-2025 Free T3 [Mass/Vol] 2.8 pg/mL 2.18-3.98 [facility] Free T3on 08-06-2025 Free T3 [Mass/Vol] 2.8 pg/mL Normal 2.18-3.98 [facility] Comment on above: Performed By: #### L 3300.7100, L501.9520, L506.0400, L501.34041 #### [facility] [address] [place], [place], [id number] T4 Free Directon 05-23-2025 T4 FREE DIRECT 0.90 ng/dL Normal 0.76-1.46 [facility] Comment on above: Performed By: #### L 3300.7100, L501.9520, L506.0400, L501.18127 #### [facility] [address] [place], [place], [address] T4 freeOrdered By: Elmo stephen on 05-23-2025 Free T4 [Mass/Vol] 0.90 ng/dL 0.76-1.46 [facility] TSH DL <= 0.005 mIU/L QnOrde red By: Elmo Ackerman on 05-23-2025 TSH Qn 1.300 uIU/mL 0.300-4.200 [facility] Thyroid Stim Hormone (TSH)on 05-23-2025 TSH 1.300 uIU/mL Normal 0.300-4.200 [facility] Comment on above: Performed By: #### L 3300.7100, L501.9520, L506.0400, L501.69698 #### [facility] [address] [place], [place], [id number] ALLIED HEALTHon 05-22-2025 ALLIED HEALTH HNO ID: [id number] Author: ARSH HAYES RT(R) Service: Radiology Author Type: Turf Manager Type: Allied Health Filed: 05/22/2025 00:10 Note Text: Radiology Service Progress Note PATIENT NAME: Deepa Jordan DATE OF SERVICE: May 22, 2025 TIME: 12:09 AM PATIENT IDENTITY VERIFICATION COMPLETED USING TWO [...] Patient: Screened in ED PATIENT GENDER DATA: Assigned female at . status: : No status: NO. PATIENT RELEVANT IMPLANT DATA REVIEWED: Not Applicable PATIENT PRESENTS WITH AN IMPLANTABLE OR ATTACHED WOLF HUNTER: No RADIOLOGY DEPARTMENT: Ultrasound PERIPHERAL IV DATA: Not applicable SIGNED BY: RT Janet(R) May 22, 2025 12:09 AM Normal [facility] ED NOTEon 05-22-2025 ED NOTE HNO ID: [id number] Author: CORRINA LARA RN Service: Behavioral Health Author Type: Registered Nurse Type: ED Notes Filed: 05/22/2025 03:51 Note Text: Pt received written and verbal discharge instructions. Pt verbalizes understanding. All questions answered. Instructed pt to follow up with PCP. No acute distress noted. Instructed pt to come back to Emergency Room if symptoms worsen. Pt verbalized understanding. All belongings with pt. Normal [facility] HIGH SENSITIVITY TROPONIN T (SECOND)on 05-22-2025 Troponin T.cardiac High sensitivity method [Mass/Vol] <6 Normal <12 [facility] Comment on above: Order Comment: Speci men Type: BLOOD SPECIMENOrdering Facility: [facility] Address: [address] [place] [address] Performed By: #### L [id number] ####[facility] [id number] [place] [address] [place] US ABD RIGHT UPPER QUADRANTo n 05-22-2025 US ABD RIGHT UPPER QUADRANT * * *Final Report* * * DATE OF EXAM: May 22 2025 12:11AM MDU 1032 - US ABD RIGHT UPPER QUADRANT / PROCEDURE REASON: Epigastric pain * * * * Physician Interpretation * * * * EXAMINATION: RIGHT UPPER QUADRANT ULTRASOUND CLINICAL HISTORY: Epigastric pain TECHNIQUE: Sonography of the right upper quadrant was performed. Images were obtained and stored in a permanent archive. MQ: URUQ_2 COMPARISON: CT 05/16/2024. RESULT: Pancreas: Unremarkable sonographic appearance. Portions obscured: tail Liver: Echotexture: Normal, homogeneous. Echogenicity: Normal Surface contour: Smooth Lesions: None identified. Biliary: No intrahepatic biliary duct dilation. CBD: 0.5 cm Gallbladder: Normal caliber -Contents: No cholelithiasis -Wall: Normal -Other: No pericholecystic fluid. Technologist reports negative sonographic Aguilar's sign. Right Kidney: No hydronephrosis. Ascites: None. IMPRESSION: No cholelithiasis or sonographic findings of acute cholecystitis. Industrial Trainer: DARSHAN Transcribe Date/Time: May 22 2025 3:24A Dictated by : DOTTIE POE MD This examination was interpreted and the report reviewed and electronically signed by: DOTTIE POE MD on May 22 2025 3:27AM EST [id number] Normal [facility] Urinalysis complete panel (U )on 05-22-2025 Bilirubin Ql (U) Negative Normal Negative [facility] Comment on above: Order Comment: Speci men Type: URINE SPECIMENOrdering Facility: [facility] Address: [address] [place] [address] Performed By: #### 2 4356-8 ####[facility]ORY[facility] [id number] [address] [place] Clarity (Unsp spec) Clear Normal Clear [facility] Comment on above: Order Comment: Speci men Type: URINE SPECIMENOrdering Facility: [facility] Address: [address] [place] [address] Performed By: #### 2 4356-8 ####[facility] [id number] [address] [place] Color (U) Yellow Normal Yellow [facility] Comment on above: Order Comment: Speci men Type: URINE SPECIMENOrdering Facility: [facility] Address: [address] [place] [address] Performed By: #### 2 4356-8 ####[facility]ORATORYCLIA [id number] [place] [address] [place] Epithelial cells LM.HPF (Urine sed) [#/Area] Few Normal [facility] Comment on above: Order Comment: Speci men Type: URINE SPECIMENOrdering Facility: [facility] Address: [address] [place] [address] Performed By: #### 2 4356-8 ####[facility]ORATORYCLIA [id number] [place] [address] [place] Glucose Test strip (U) [Mass/Vol] Negative Normal Negative [facility] Comment on above: Order Comment: Speci men Type: URINE SPECIMENOrdering Facility: [facility] Address: [facility] [place] [address] Performed By: #### 2 4356-8 ####[facility]ORATORYCLIA [id number] [place] [address] [place] Hemoglobin Ql (U) Negative Normal Negative [facility] Comment on above: Order Comment: Speci men Type: URINE SPECIMENOrdering Facility: [facility] Address: [address] [place] [address] Performed By: #### 2 4356-8 ####[facility]ATORYCLIA [id number] [place] [address] [place] Ketones Ql (U) Negative Normal Negative [facility] Comment on above: Order Comment: Speci men Type: URINE SPECIMENOrdering Facility: [facility] Address: [address] [place] [address] Performed By: #### 2 4356-8 ####[facility]ORATORYCLIA [id number] [address] [place] [facility] Leukocyte esterase Test strip Ql (U) Negative Normal Negative [facility] Comment on above: Order Comment: Speci men Type: URINE SPECIMENOrdering Facility: [facility] Address: [address] [place] [address] Performed By: #### 2 4356-8 ####[facility]ORATORYCLIA [id number] [place] [address] [place] Nitrite Ql (U) Negative Normal Negative [facility] Comment on above: Order Comment: Speci men Type: URINE SPECIMENOrdering Facility: [facility] Address: [address] [place] [address] Performed By: #### 2 4356-8 ####[facility]ATORYCLIA [id number] [address] [place] pH (U) 7.0 [pH] Normal 5.0-8.0 [facility] Comment on above: Order Comment: Speci men Type: URINE SPECIMENOrdering Facility: [facility] Address: [address] [place] [address] Performed By: #### 2 4356-8 ####[facility]ORATORYCLIA [id number] [address] Protein (U) [Mass/Vol] Negative Normal Negative [facility] Comment on above: Order Comment: Speci men Type: URINE SPECIMENOrdering Facility: [facility] Address: [address] [place] [address] Performed By: #### 2 4356-8 ####[facility]ORATORYCLIA [id number] [address] [place] RBC LM.HPF (Urine sed) [#/Area] 0-3 /HPF Normal 0-3 /HPF [facility] Comment on above: Order Comment: Speci men Type: URINE SPECIMENOrdering Facility: [facility] Address: [address] [place] [address] Performed By: #### 2 4356-8 ####[facility]ORATORYCLIA [id number] [address] [place] Specific gravity (U) [Rel density] 1.010 Normal 1.005-1.030 [facility] Comment on above: Order Comment: Speci men Type: URINE SPECIMENOrdering Facility: [facility] Address: [address] [place] [address] Performed By: #### 2 4356-8 ####[facility]ATORYCLIA [id number] [address] [place] Urobilinogen Ql (U) 0.2 EU/dL Normal 0.2-1.0 EU/dL [facility] Comment on above: Order Comment: Speci men Type: URINE SPECIMENOrdering Facility: [facility] Address: [address] [place] [address] Performed By: #### 2 4356-8 ####[facility] LABORATORYCLIA [id number] [place] [address] [place] WBC LM.HPF (Urine sed) [#/Area] 0-5 /HPF Normal 0-5 /HPF [facility] Comment on above: Order Comment: Speci men Type: URINE SPECIMENOrdering Facility: [facility] Address: [address] [place] [address] Performed By: #### 2 4356-8 ####[facility]ATORYCLIA [id number] [address] [place] ALLIED HEALTHon 05-21-2025 ALLIED HEALTH HNO ID: [id number] Author: RIVERA LUCIO RT(R) Service: Radiology Author Type: Technologist Type: Allied Health Filed: 05/21/2025 23:37 Note Text: Radiology Service Progress Note PATIENT NAME: Deepa Jordan DATE OF SERVICE: May 21, 2025 TIME: 11:37 PM PATIENT IDENTITY VERIFICATION COMPLETED USING TWO [...] Patient: Screened in ED PATIENT GENDER DATA: Assigned female at . status: : No status: NO. PATIENT RELEVANT IMPLANT DATA REVIEWED: Not Applicable PATIENT PRESENTS WITH AN IMPLANTABLE OR ATTACHED WOLF HUNTER: No RADIOLOGY DEPARTMENT: General X-ray: Exam(s) Completed: Chest X-Ray PERIPHERAL IV DATA: Not applicable SIGNED BY: RT Yosef(R) May 21, 2025 11:37 PM Normal [facility] CBC W Auto Differential pane l (Bld)on 05-21-2025 Basophils (Bld) [#/Vol] 0.08 10*3/uL Normal <0.11 [facility] Comment on above: Order Comment: Speci men Type: BLOOD SPECIMEN [facility] Address: [address] [place] [address] Performed By: #### 5 7021-8 #### [facility] CLIA [id number] [address] [place] Basophils/100 WBC (Bld) 0.7 % Normal [facility] Comment on above: Order Comment: Speci men Type: BLOOD SPECIMEN [facility] Address: [address] [place] [address] Performed By: #### 5 7021-8 #### [facility] CLIA [id number] [address] [place] Differential cell count method Nom (Bld) Auto Normal [facility] Comment on above: Order Comment: Speci men Type: BLOOD SPECIMEN [facility] Address: [address] [place] [address] Performed By: #### 5 7021-8 #### [facility] CLIA [id number] [address] [place] [address] [place] Eosinophils (Bld) [#/Vol] 0.24 10*3/uL Normal <0.46 [facility] Comment on above: Order Comment: Speci men Type: BLOOD SPECIMEN [facility] Address: [address] [place] [address] Performed By: #### 5 7021-8 #### [facility] CLIA [id number] [address] [place] [address] [place] Eosinophils/100 WBC (Bld) 2.2 % Normal [facility] Comment on above: Order Comment: Speci men Type: BLOOD SPECIMEN [facility] Address: [address] [place] [address] Performed By: #### 5 7021-8 #### [facility] CLIA [id number] [address] [place] [facility] Erythrocyte distribution width (RBC) [Ratio] 13.2 % Normal 11.5-15.0 [facility] Comment on above: Order Comment: Speci men Type: BLOOD SPECIMEN [facility] Address: [address] [place] [address] Performed By: #### 5 7021-8 #### [facility] CLIA [id number] [address] [place] Hematocrit (Bld) [Volume fraction] 35.6 % Low 36.0-46.0 [facility] Comment on above: Order Comment: Speci men Type: BLOOD SPECIMEN [facility] Address: [address] [place] [address] Performed By: #### 5 7021-8 #### [facility] CLIA [id number] [address] [place] Hemoglobin (Bld) [Mass/Vol] 12.3 g/dL Normal 11.5-15.5 [facility] Comment on above: Order Comment: Speci men Type: BLOOD SPECIMEN [facility] Address: [address] [place] [address] Performed By: #### 5 7021-8 #### [facility] CLIA [id number] [address] [place] [address] [place] Immature granulocytes (Bld) [#/Vol] 0.03 10*3/uL Normal <0.10 [facility] Comment on above: Order Comment: Speci men Type: BLOOD SPECIMEN [facility] Address: [address] [place] [address] Performed By: #### 5 7021-8 #### [facility] CLIA [id number] [address] [place] Immature granulocytes/100 WBC (Bld) 0.3 % Normal [facility] Comment on above: Order Comment: Speci men Type: BLOOD SPECIMEN [facility] Address: [address] [place] [address] Performed By: #### 5 7021-8 #### [facility] CLIA [id number] [address] [place] [address] [place] Lymphocytes (Bld) [#/Vol] 4.64 10*3/uL High 1.00-4.00 [facility] Comment on above: Order Comment: Speci men Type: BLOOD SPECIMEN [facility] Address: [address] [place] [address] Performed By: #### 5 7021-8 #### [facility] CLIA [id number] [address] [place] Lymphocytes/100 WBC (Bld) 42.9 % Normal [facility] Comment on above: Order Comment: Speci men Type: BLOOD SPECIMEN [facility] Address: [address] [place] [address] Performed By: #### 5 7021-8 #### [facility] CLIA [id number] [address] MCH (RBC) [Entitic mass] 29.8 pg Normal 26.0-34.0 [facility] Comment on above: Order Comment: Speci men Type: BLOOD SPECIMEN [facility] Address: [address] [place] [address] Performed By: #### 5 7021-8 #### [facility] CLIA [id number] [address] MCHC (RBC) [Mass/Vol] 34.6 g/dL Normal 30.5-36.0 [facility] Comment on above: Order Comment: Speci men Type: BLOOD SPECIMEN [facility] Address: [address] [place] [address] Performed By: #### 5 7021-8 #### [facility] CLIA [id number] [address] [place] MCV (RBC) [Entitic vol] 86.2 fL Normal 80.0-100.0 [facility] Comment on above: Order Comment: Speci men Type: BLOOD SPECIMEN [facility] Address: [address] [place] [address] Performed By: #### 5 7021-8 #### [facility] CLIA [id number] [address] Monocytes (Bld) [#/Vol] 0.97 10*3/uL High <0.87 [facility] Comment on above: Order Comment: Speci men Type: BLOOD SPECIMEN [facility] Address: [address] [place] [address] Performed By: #### 5 7021-8 #### [facility] CLIA [id number] [address] Monocytes/100 WBC (Bld) 9.0 % Normal [facility] Comment on above: Order Comment: Speci men Type: BLOOD SPECIMEN [facility] Address: [address] [place] [address] Performed By: #### 5 7021-8 #### [facility] CLIA [id number] [address] [place] [address] [place] Neutrophils (Bld) [#/Vol] 4.86 10*3/uL Normal 1.45-7.50 [facility] Comment on above: Order Comment: Speci men Type: BLOOD SPECIMEN [facility] Address: [address] [place] [address] Performed By: #### 5 7021-8 #### [facility] CLIA [id number] [address] Neutrophils/100 WBC (Bld) 44.9 % Normal [facility] Comment on above: Order Comment: Speci men Type: BLOOD SPECIMEN [facility] Address: [address] [place] [address] Performed By: #### 5 7021-8 #### [facility] CLIA [id number] [address] [place] Nucleated RBC (Bld) [#/Vol] 10*3/uL Normal <0.01 [facility] Comment on above: Order Comment: Speci men Type: BLOOD SPECIMEN [facility] Address: [address] [place] [address] Performed By: #### 5 7021-8 #### [facility] CLIA [id number] [address] Nucleated RBC/100 WBC (Bld) [Ratio] 0.0 /100 WBC Normal [facility] Comment on above: Order Comment: Speci men Type: BLOOD SPECIMEN [facility] Address: [facility] [place] [address] Performed By: #### 5 7021-8 #### [facility] CLIA [id number] [address] [place] Platelet mean volume (Bld) [Entitic vol] 9.7 fL Normal 9.0-12.7 [facility] Comment on above: Order Comment: Speci men Type: BLOOD SPECIMEN [facility] Address: [address] [place] [address] Performed By: #### 5 7021-8 #### [facility] CLIA [id number] [address] [place] Platelets (Bld) [#/Vol] 256 10*3/uL Normal 150-400 [facility] Comment on above: Order Comment: Speci men Type: BLOOD SPECIMEN [facility] Address: [address] [place] [address] Performed By: #### 5 7021-8 #### [facility] CLIA [id number] [address] [place] [address] [place] RBC (Bld) [#/Vol] 4.13 10*6/uL Normal 3.90-5.20 [facility] Comment on above: Order Comment: Speci men Type: BLOOD SPECIMEN [facility] Address: [address] [place] [address] Performed By: #### 5 7021-8 #### [facility] CLIA [id number] [address] [place] WBC (Bld) [#/Vol] 10.82 10*3/uL Normal 3.70-11.[address] [facility] Comment on above: Order Comment: Speci men Type: BLOOD SPECIMEN [facility] Address: [address] [place] [address] Performed By: #### 5 7021-8 #### [facility] CLIA [id number] [address] [place] Comprehensive metabolic 2000 panelon 05-21-2025 Albumin [Mass/Vol] 4.2 g/dL Normal 3.9-4.9 [facility] Comment on above: Order Comment: Speci men Type: BLOOD SPECIMEN [facility] Address: [address] [place] [address] Performed By: #### 2 4323-8, [id number], 3040-3, 61543-1, 21887-8 #### [facility] CLIA [id number] [address] [place] [address] [place] ALP [Catalytic activity/Vol] 110 U/L Normal 34-123 [facility] Comment on above: Order Comment: Speci men Type: BLOOD SPECIMEN [facility] Address: [address] [place] [address] Performed By: #### 2 4323-8, [id number], 3040-3, 18360-1, 26076-5 #### [facility] CLIA [id number] [address] [place] [address] [place] ALT [Catalytic activity/Vol] 19 U/L Normal 7-38 [facility] Comment on above: Order Comment: Speci men Type: BLOOD SPECIMEN [facility] Address: [address] [place] [address] Performed By: #### 2 4323-8, [id number], 3040-3, 71555-2, 22559-9 #### [facility] CLIA [id number] [address] STATES OF [facility] Anion gap [Moles/Vol] 11 mmol/L Normal 8-15 [facility] [facility] Comment on above: Order Comment: Speci men Type: BLOOD SPECIMEN Ordering Facility: [facility] Address: [address] [place] [address] Performed By: #### 2 4323-8, [id number], 3040-3, 74204-8, 07143-5 #### [facility] CLIA [id number] [address] STATES OF [facility] AST [Catalytic activity/Vol] 18 U/L Normal 13-35 [facility] Comment on above: Order Comment: Speci men Type: BLOOD SPECIMEN Ordering Facility: [facility] Address: [address] [place] [address] Performed By: #### 2 4323-8, [id number], 3040-3, 22592-3, 65183-0 #### [facility] CLIA [id number] [address] [place] [address] [place] Bilirubin [Mass/Vol] 0.3 mg/dL Normal 0.2-1.[address] [facility] Comment on above: Order Comment: Speci men Type: BLOOD SPECIMEN Ordering Facility: [facility] Address: [address] [place] [address] Performed By: #### 2 4323-8, [id number], 3040-3, 57578-7, 61634-4 #### [facility] CLIA [id number] [address] [place] [address] [place] Calcium [Mass/Vol] 9.0 mg/dL Normal 8.5-10.2 [facility] Comment on above: Order Comment: Speci men Type: BLOOD SPECIMEN Ordering Facility: [facility] Address: [address] [place] [address] Performed By: #### 2 4323-8, [id number], 3040-3, 86325-8, 45324-5 #### [facility] CLIA [id number] [address] [place] [address] [place] Chloride [Moles/Vol] 104 mmol/L Normal 98-[address] [facility] Comment on above: Order Comment: Speci men Type: BLOOD SPECIMEN Ordering Facility: [facility] Address: [address] [place] [address] Performed By: #### 2 4323-8, [id number], 3040-3, 68939-7, 35712-1 #### [facility] CLIA [id number] [address] [place] [address] [place] CO2 [Moles/Vol] 25 mmol/L Normal 22-30 [facility] Comment on above: Order Comment: Speci men Type: BLOOD SPECIMEN Ordering Facility: [facility] Address: [address] [place] [address] Performed By: #### 2 4323-8, [id number], 3040-3, 55152-0, 28567-6 #### [facility] CLIA [id number] [address] [place] [address] [place] Creatinine [Mass/Vol] 0.69 mg/dL Normal 0.58-0.96 [facility] Comment on above: Order Comment: Speci men Type: BLOOD SPECIMEN Ordering Facility: [facility] Address: [address] [place] [address] Performed By: #### 2 4323-8, [id number], 3040-3, 72497-7, 54314-5 #### [facility] CLIA [id number] [address] [place] [address] [place] eGFRcr SerPlBld CKD-EPI 2020 93 mL/min/1.73m??? Normal >=60 [facility] Comment on above: Order Comment: Jarrod pinon Type: BLOOD SPECIMEN Ordering Facility: [facility] Address: [address] [place] [address] Result Comment: Zeynep mated Glomerular Filtration Rate [...] actual GFR. Performed By: #### 2 4323-8, [id number], 3040-3, 70097-4, 29134-3 #### [facility] CLIA [id number] [address] [place] [address] [place] Glucose [Mass/Vol] 108 mg/dL High 74-99 [facility] Comment on above: Order Comment: Jarrod pinon Type: BLOOD SPECIMEN Ordering Facility: [facility] Address: [address] [place] [address] Result Comment: The [place] Diabetes Association (ADA) provides guidance for cutoff [...] Standards of Medical Care in Diabetes 2016, [place] [employer] Association. Diabetes Care. 2016.39(Suppl 1). Performed By: #### 2 4323-8, [id number], 3040-3, 05027-2, 90171-6 #### [facility] CLIA [id number] [address] [place] [address] [place] Potassium [Moles/Vol] 4.3 mmol/L Normal 3.7-5.1 [facility] Comment on above: Order Comment: Speci men Type: BLOOD SPECIMEN Ordering Facility: [facility] Address: [address] [place] [address] Performed By: #### 2 4323-8, [id number], 3040-3, 60812-4, 36802-1 #### [facility] CLIA [id number] [address] [place] [address] [place] Protein [Mass/Vol] 6.3 g/dL Normal 6.3-8.0 [facility] Comment on above: Order Comment: Speci men Type: BLOOD SPECIMEN Ordering Facility: [facility] Address: [address] [place] [address] Performed By: #### 2 4323-8, [id number], 3040-3, 88544-7, 65611-8 #### [facility] CLIA [id number] [address] [place] [address] [place] Sodium [Moles/Vol] 140 mmol/L Normal 136-144 [facility] Comment on above: Order Comment: Speci men Type: BLOOD SPECIMEN Ordering Facility: [facility] Address: [address] [place] [address] Performed By: #### 2 4323-8, [id number], 3040-3, 42720-9, 10256-0 #### [facility] CLIA [id number] [address] [place] [address] [place] Urea nitrogen [Mass/Vol] 22 mg/dL High 7-21 [facility] Comment on above: Order Comment: Speci men Type: BLOOD SPECIMEN Ordering Facility: [facility] Address: [address] [place] [address] Performed By: #### 2 4323-8, [id number], 3040-3, 24109-9, 53445-8 #### [facility] CLIA [id number] [address] [place] [address] [place] ED PROV NOTEon 05-21-2025 ED PROV NOTE HNO ID: [id number] Author: MATHEUS GARZA MD Service: Emergency Medicine Author Type: Physician Type: ED Provider Notes Filed: 05/22/2025 03:45 Note Text: ED Provider Note Patient Name: Deepa Jordan : 1955 SERVICE DATE: 05/21/25 History Patient presents with: Chest Pain: Patient ambulatory to triage with complaints of chest pain since this afternoon, some tightness in her back. Also had heart burn x 3 days 69-year-old female with history of hypertension, hyperlipidemia, obesity, GERD, and anxiety presents to the emergency department for evaluation of chest pain which she describes as intermittent, brief, biting like sensation below left breast. Started this afternoon and has increased in frequency this evening. She has also been experiencing increased dyspepsia over the last 3 days and had some transient left upper back pain that she described as a pressure earlier today which is now resolved. Thought it might be her gallbladder. Denies any shortness of breath, pleurisy, palpitations, lightheadedness or diaphoresis. Denies numbness or tingling. No abdominal pain or vomiting. No lower extremityswelling or calf pain. No recent immobilization. No history of DVT orPE. No history of malignancy. Previous smoker. Reports recent increased stress. Last had alcohol 2 days ago. One cup of coffee daily, no change in caffeine intake. No illicit drug use. No recent change in medications. Has hx of chronic muscle cramps which have been worse in the last few days as well, particularly in her legs. 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 used: No PAST MEDICAL HISTORY Diagnosis Date - Allergy-induced asthma - Anxiety - Arthritis - Diverticulitis 05/16/2024 - FHx: allergies - Batsheva's disease - Heartburn - Hypertension - Obesity - Other and unspecified hyperlipidemia PAST SURGICAL HISTORY Procedure Laterality Date - PAST SURGICAL HISTORY OF tummy tuck - PAST SURGICAL HISTORY OF liposuction - PAST SURGICAL HISTORY OF ovaries removed - TOTAL ABDOMINAL HYSTERECT W/WO RMVL TUBE OVARY FAMILY HISTORY Problem Relation Age of Onset - other (crohn's disease) Daughter - Stroke Mother - other (Other- blood clots) Mother - Heart disease Father Social History Tobacco Use - Smoking status: Former Current packs/day: 0.00 Average packs/day: 1 pack/day for 40.0 years (40.0 ttl pk-yrs) Types: Cigarettes Start date: 1972 Quit date: 2012 Years since quittin.5 - Smokeless tobacco: Never - Tobacco comments: 43 years total average 1ppd Substance and Sexual Activity - Alcohol use: No Comment: Once a year on her birthday - Drug use: No - Sexual activity: Not on file ALLERGIES No Known Allergies Review of Systems Constitutional: Negative for chills, diaphoresis and fever. HENT: Negative. Respiratory: Negative for cough and shortness of breath. Cardiovascular: Positive for chest pain. Negative for palpitations and leg swelling. Gastrointestinal: Negative for abdominal pain, nausea and vomiting. Genitourinary: Negative. Musculoskeletal: Positive for back pain. Skin: Negative. Allergic/Immunologic: Negative for immunocompromised state. Neurological: Negative for light-headedness. Hematological: Does not bruise/bleed easily. Psychiatric/Behaviora l: Negative for confusion. Physical Exam Vitals [05/21/25 2319] BP Pulse Temp Temp src Resp SpO2 Weight Height 149/74 70 36.8 ?C (98.3 ?F) Oral 16 98 % 89 kg (196 lb 3.4 oz) 1.6 m (5' 3) Physical Exam Vitals and nursing note reviewed. Constitutional: General: She is awake. She is not in acute distress. Appearance: Normal appearance. She is well-developed and well-groomed. She is not ill-appearing, toxic-appearing or diaphoretic. HENT: Head: Normocephalic and atraumatic. Nose: Nose normal. Mouth/Throat: Mouth: Mucous membranes are moist. Cardiovascular: Rate and Rhythm: Normal rate. Rhythm irregular. Pulses: Normal pulses. Radial pulses are 2+ on the right side and 2+ on the left side. Dorsalis pedis pulses are 2+ on the right side and 2+ on the left side. Heart sounds: Normal heart sounds, S1 normal and S2 normal. Comments: No pedal edema or evidence of fluid overload. No calf tenderness to palpation bilaterally. Negative yamil sign bilaterally. Pulmonary: Effort: Pulmonary effort is normal. Breath sounds: Normal breath sounds and air entry. Abdominal: General: There is no distension. Palpations: Abdomen is soft. Tenderness: There is abdominal tenderness in the right upper quadrant. There is guarding. There is no right CVA tenderness, left CVA tenderness or rebound. Negative signs include Aguilar's sign. Musculoskeletal: General: Normal range of motion. Cervical back: Normal range of motion. Right lower leg: No edema. Left lower leg: No edema. Skin: General: Skin is warm. Neurological: General: (more content not included)... Normal [facility] EKGon 05-21-2025 Electrocardiogram Ventricular Rate : 6 1 BPM Atrial Rate : 61 BPM P-R Interval : 160 ms QRS Duration : 70 ms Q-T Interval : 392 ms QTC Calculation(Bazett) : 394 ms Calculated P [place] : 65 degrees Calculated R [place] : 17 degrees Calculated T [place] : 48 degrees SINUS RHYTHM WITH MARKED SINUS ARRHYTHMIA Confirmed by MATHEUS GARZA MD ([id number]) on 05/22/2025 2:03:30 AM NAME : DEEPA JORDAN PID : [id number] : 1955 Gender : Female Race : ORD : Procedure Date : May 21 2025 23:19:35 Edit Date : May 22 2025 02:03:33 Diagnosis: SINUS RHYTHM WITH MARKED SINUS ARRHYTHMIA Confirmed by MATHEUS GARZA MD ([id number]) on 05/22/2025 2:03:30 AM Test Reason : Location : 1 : ER ED Overread By : MATHEUS GARZA MD Edited By : MATHEUS GARZA MD Referred By : , Acquired by : [place], [facility] HIGH SENSITIVITY TROPONIN T (INITIAL)on 05-21-2025 Troponin T.cardiac High sensitivity method [Mass/Vol] 8 ng/L Normal <12 [facility] Comment on above: Order Comment: Jarrod pinon Type: BLOOD SPECIMENOrdering Facility: [facility] Address: [address] [place] [address] Performed By: #### 2 4323-8, [id number], 3040-3, 80622-4, 80986-8 ####[facility] [id number] [place] [address] [place] Lipase SerPl-cCncon 05-21-20 25 Lipase [Catalytic activity/Vol] 32 U/L Normal 16-61 [facility] Comment on above: Order Comment: Jarrod pinon Type: BLOOD SPECIMEN Ordering Facility: [facility] Address: [address] [place], [place] [address] Performed By: #### 2 4323-8, [id number], 3040-3, 39065-2, 20218-3 #### [facility] CLIA [id number] [address] OF [facility] Magnesium [Mass/Vol] 2.0 mg/dL Normal 1.7-2.[address] [facility] Comment on above: Order Comment: Jarrod pinon Type: BLOOD SPECIMENOrdering Facility: [facility] Address: [address] [place] [address] Performed By: #### 2 4323-8, [id number], 3040-3, 74390-1, 03223-1 ####[facility] [id number] [address] OF [place] [facility] Natriuretic peptide.B prohormone N-Terminal [Mass/Vol] 237 pg/mL High <125 [facility] Comment on above: Order Comment: Jarrod pinon Type: BLOOD SPECIMENOrdering Facility: [facility] Address: [address] [place], [place] [address] Performed By: #### 2 4323-8, [id number], 3040-3, 31413-4, 12422-0 ####[facility] [id number] [address] [place] XR CHEST 1V FRONTAL PORTon 0 05-21-2025 XR CHEST 1V FRONTAL PORT * * *Final Report* * * DATE OF EXAM: May 21 2025 11:36PM MDX [id number] - XR CHEST 1V FRONTAL PORT / PROCEDURE REASON: Chest pain * * * * Physician Interpretation * * * * CHEST RADIOGRAPH: AP view of the chest. Exam Date/Time: 05/21/2025 11:36 PM Indication: Chest pain Comparison: Chest x-ray 06/01/2015 RESULTS: Lines, Tubes, and Devices: None Lungs and Pleura: The lungs are clear. No pleural effusion or pneumothorax. Cardiomediastinal silhouette: The mediastinal and cardiac silhouette are normal in size and contour. Other: The bones of the chest are unremarkable. IMPRESSION: No radiographic evidence of acute cardiopulmonary abnormality. Industrial Trainer: PSCB Transcribe Date/Time: May 22 2025 2:27A Dictated by : YOUSUF TATE MD This examination was interpreted and the report reviewed and electronically signed by: YOUSUF TATE MD on May 22 2025 2:27AM EST [id number] N Normal [facility] SCREENINGon 10-26-2024 [facility] SCREENING * * *Final Report* * * DATE OF EXAM: Oct 26 2024 10:57AM LDW 0581 - [facility] SCREENING / PROCEDURE REASON: Z12.31 Breast screen by mammogram * * * * Physician Interpretation * * * * [place] [address] #[id number] - [facility] SCREENING HISTORY: Patient is 69 years old [...] Sean Parrish M.D. Electronically signed on: 10/27/2024 Industrial Trainer: FERNANDO Transcribe Date/Time: Oct 26 2024 10:20A Dictated by : SEAN PARRISH MD This examination was interpreted and the report reviewed and electronically signed by: SEAN PARRISH MD on Oct 27 2024 8:25AM EST [id number] N Normal [facility] CBC W/Diff, Automatedon 08-18 MCHC (RBC) [Mass/Vol] 32.6 g/dL Normal 32-36 [facility] Comment on above: Result Comment: Resu lts obtained from prewarmed specimen. AMENDED REPORT 08/29/24303 MCHC previously reported as: 32.6 g/dL Performed By: #### L 501.9520, L500.4050, L100.0100, L500.4100 #### [facility] [address] [place], [address] Comprehensive Metabolic Prof ilon 08-29-2024 Albumin [Mass/Vol] 3.9 g/dL Normal 3.2-5.0 [facility] Comment on above: Performed By: #### L 501.9520, L500.4050, L100.0100, L500.4100 #### [facility] [address] [place], [address] Albumin/Globulin [Mass ratio] 1.2 {ratio} Normal 0.9-2.4 [facility] Comment on above: Performed By: #### L 501.9520, L500.4050, L100.0100, L500.4100 #### [facility] [address] [place], [address] ALK P 102 U/L Normal 45-117 [facility] Comment on above: Performed By: #### L 501.9520, L500.4050, L100.0100, L500.4100 #### [facility] [address] [place], [address] ALT [Catalytic activity/Vol] 24 U/L Normal 13-56 [facility] Comment on above: Performed By: #### L 501.9520, L500.4050, L100.0100, L500.4100 #### [facility] [address] [place], [address] AST [Catalytic activity/Vol] 14 U/L Low 15-37 [facility] Comment on above: Performed By: #### L 501.9520, L500.4050, L100.0100, L500.4100 #### [facility] [address] [place], [address] Bilirubin [Mass/Vol] 0.60 mg/dL Normal 0.20-1.00 [facility] Comment on above: Result Comment: For patients on eltrombopag therapy, use of Dimension Bevier TBIL is not recommended. Performed By: #### L 501.9520, L500.4050, L100.0100, L500.4100 #### [facility] [address] [place], [address] BUN/CRE 26.2 RATIO High 10-20 [facility] Comment on above: Performed By: #### L 501.9520, L500.4050, L100.0100, L500.4100 #### [facility] [address] [place], [address] CA,Total 8.6 mg/dL Normal 8.5-10.1 [facility] Comment on above: Performed By: #### L 501.9520, L500.4050, L100.0100, L500.4100 #### [facility] [address] [place], [address] Chloride [Moles/Vol] 105 mmol/L Normal 98-107 [facility] Comment on above: Performed By: #### L 501.9520, L500.4050, L100.0100, L500.4100 #### [facility] [address] [place], [address] CO2 [Moles/Vol] 26.0 mmol/L Normal 21.0-32.0 [facility] Comment on above: Performed By: #### L 501.9520, L500.4050, L100.0100, L500.4100 #### [facility] [address] [place], [address] Creatinine [Mass/Vol] 0.72 mg/dL Normal 0.55-1.02 [facility] Comment on above: Result Comment: The validity of the calculated GFR GFRAA in patients over 70 years has not been determined. Clinical correlation is essential. Performed By: #### L 501.9520, L500.4050, L100.0100, L500.4100 #### [facility] [address] [place], [address] EST GFR - AA 102 mL/min Normal >60 [facility] Comment on above: Result Comment: Afri can [place]ian GFR Calc Performed By: #### L 501.9520, L500.4050, L100.0100, L500.4100 #### [facility] [address] [place], [address] GAP 7 Normal 5-15 [facility] Comment on above: Performed By: #### L 501.9520, L500.4050, L100.0100, L500.4100 #### [facility] [address] [place], [address] GFR/1.73 sq M.predicted among non-blacks MDRD (S/P/Bld) [Vol rate/Area] 85 mL/min/{1.73_m2} Normal >60 [facility] Comment on above: Result Comment: Non- GFR Calc Performed By: #### L 501.9520, L500.4050, L100.0100, L500.4100 #### [facility] [address] [place], [address] Globulin (S) [Mass/Vol] 3.3 g/dL Normal 2.2-4.2 [facility] Comment on above: Performed By: #### L 501.9520, L500.4050, L100.0100, L500.4100 #### [facility] [address] [place], [address] Glucose [Mass/Vol] 98 mg/dL Normal 74-106 [facility] Comment on above: Performed By: #### L 501.9520, L500.4050, L100.0100, L500.4100 #### [facility] [address] [place], [address] Potassium [Moles/Vol] 4.3 mmol/L Normal 3.5-5.1 [facility] Comment on above: Performed By: #### L 501.9520, L500.4050, L100.0100, L500.4100 #### [facility] [address] [place], [address] Sodium [Moles/Vol] 138 mmol/L Normal 136-145 [facility] Comment on above: Performed By: #### L 501.9520, L500.4050, L100.0100, L500.4100 #### [facility] [address] [place], [address] T PROT 7.2 g/dL Normal 6.4-8.2 [facility] Comment on above: Performed By: #### L 501.9520, L500.4050, L100.0100, L500.4100 #### [facility] [address] [place], [address] Urea nitrogen [Mass/Vol] 19 mg/dL High 7-18 [facility] Comment on above: Performed By: #### L 501.9520, L500.4050, L100.0100, L500.4100 #### [facility] [address] [place], [address] Lipid Profileon 08-29-2024 Cholesterol [Mass/Vol] 230 mg/dL High 200 [facility] Comment on above: Result Comment: <200 mg/dL Desirable 200-240 mg/dL Borderline >240 mg/dL High Risk Performed By: #### L 501.9520, L500.4050, L100.0100, L500.4100 #### [facility] [address] [place], [address] Cholesterol in HDL [Mass/Vol] 51 mg/dL Normal [facility] Comment on above: Result Comment: The drugs N-Acetylcysteine and Metamizole may falsely depress this assay. Reference Range HDL <40 mg/dL Low HDL Cholesterol HDL >or= 60 mg/dL High HDL Cholesterol Performed By: #### L 501.9520, L500.4050, L100.0100, L500.4100 #### [facility] [address] [place], [address] Cholesterol in LDL [Mass/Vol] 145 mg/dL High 0-130 [facility] Comment on above: Performed By: #### L 501.9520, L500.4050, L100.0100, L500.4100 #### [facility] [address] [place], [address] Cholesterol in VLDL [Mass/Vol] 34 mg/dL Normal 5-40 [facility] Comment on above: Performed By: #### L 501.9520, L500.4050, L100.0100, L500.4100 #### [facility] [address] [place], [address] Triglyceride [Mass/Vol] 172 mg/dL Normal [facility] Comment on above: Result Comment: The drugs N-Acetylcysteine and Metamizole may falsely depress this assay. Serum Triglycerides Reference Interval Normal <150 mg/dL Borderline high 150 - 199 mg/dL High 200 - 499 mg/dL Very High > or = 500 mg/dL Performed By: #### L 501.9520, L500.4050, L100.0100, L500.4100 #### [facility] [address] [facility] [place], [place], [address] Thyroid Stim Hormone (TSH)on 08-29-2024 TSH 1.850 uIU/mL Normal 0.358-3.740 [facility] Comment on above: Performed By: #### L 501.9520, L500.4050, L100.0100, L500.4100 #### [facility] [address] [place], [place], [address] Laboratory - Chemistry and C hemistry - challengeOrdered By: Elmo Ackerman on 04-22-2023 Free T4 [Mass/Vol] 0.73 ng/dL 0.76-1.46 [facility] No Panel InformationOrdered By: Elmo Ackerman on 04-22-2023 Thyroid Stimulating Hormone (TSH) 1.50 uIU/mL 0.358-3.74 [facility] Absolute lymphocyte countOrd ered By: Elmo Ackerman on 03-17-2023 Lymphocytes Auto (Unsp spec) [#/Vol] 3.95 10*3/uL 0.83-4.51 [facility] Basophil percentageOrdered B y: Elmo Ackerman on 03-17-2023 Basophils/100 WBC (Bld) 0.6 % 0-1 [facility] Bilirubin [Mass/Vol] 0.30 mg/dL 0.20-1.00 [facility] Comment on above: For patients on eltr ombopag therapy, use of Dimension Bevier TBIL is not recommended. Chloride [Moles/Vol] 108 mmol/L 98-107 [facility] Cholesterol [Mass/Vol] 235 mg/dL <200 [facility] Comment on above: <200 mg/dL Desirable 200-240 mg/dL Borderline >240 mg/dL High Risk Eosinophils/100 WBC (Bld) 2.7 % 0-5 [facility] Glucose [Mass/Vol] 104 mg/dL 74-106 [facility] Comment on above: Fasting Glucose resu lt from 100 to 125 mg/dL suggests IMPAIRED HOMEOSTASIS per A.D.A. criteria. Neutrophils (Bld) [#/Vol] 5.7 10*3/uL 2.0-7.7 [facility] Neutrophils/100 WBC (Bld) 52.3 % 47-70 [facility] Potassium [Moles/Vol] 4.4 mmol/L 3.5-5.1 [facility] Protein [Mass/Vol] 7.5 g/dL 6.4-8.2 [facility] Sodium [Moles/Vol] 140 mmol/L 136-145 [facility] Triglyceride [Mass/Vol] 226 mg/dL <199 [facility] Comment on above: The drugs N-Acetylcy steine and Metamizole may falsely depress this assay.Serum Triglycerides Reference Interval Normal <150 mg/dL Borderline high 150 - 199 mg/dL High 200 - 499 mg/dL Very High > or = 500 mg/dL WBC (Bld) [#/Vol] 10.8 10*3/uL 4.4-11.0 [facility] Blood erythrocytes count (nu mber/volume)Ordered By: Elmo Ackerman on 03-17-2023 RBC (Bld) [#/Vol] 4.66 10*6/uL 4.2-5.4 [facility] Blood hemoglobin measurement (mass/volume)Ordered By: Elmo Ackerman on 03-17-2023 Hemoglobin (Bld) [Mass/Vol] 13.7 g/dL 12.0-15.0 [facility] Blood lymphocytes/100 leukoc ytesOrdered By: Elmo Ackerman on 03-17-2023 Lymphocytes/100 WBC (Bld) 36.4 % 19-41 [facility] Blood monocytes/100 leukocyt esOrdered By: Elmo Ackerman on 03-17-2023 Monocytes/100 WBC (Bld) 7.7 % 0-10 [facility] Blood platelet mean volumeOr dered By: Elmo Ackerman on 03-17-2023 Platelet mean volume (Bld) [Entitic vol] 10.4 fL 6.2-12.0 [facility] Determination of erythrocyte mean corpuscular volume (MCV)Ordered By: Elmo Ackerman on 03-17-2023 MCV (RBC) [Entitic vol] 88.0 fL 81-99 [facility] Hematocrit Auto (Bld) [Volum e fraction]Ordered By: Elmo Ackerman on 03-17-2023 Hematocrit (Bld) [Volume fraction] 41.0 % 37-47 [facility] - Chemistry and C hemistry - challengeOrdered By: Elmo Ackerman on 03-17-2023 ALP [Catalytic activity/Vol] 99 U/L 45-117 [facility] ALT [Catalytic activity/Vol] 25 U/L 13-56 [facility] CO2 [Moles/Vol] 25.0 mmol/L 21.0-32.0 [facility] Globulin (S) [Mass/Vol] 3.5 g/dL 2.2-4.2 [facility] Urea nitrogen/Creatinine [Mass ratio] 26.3 mg/mg 10-20 [facility] - Hematology and Cell countsOrdered By: Elmo Ackerman on 03-17-2023 Erythrocyte distribution width (RBC) [Entitic vol] 43.0 fL 35.1-43.9 [facility] Erythrocyte distribution width (RBC) [Ratio] 13.3 % 11.6-14.6 [facility] Immature granulocytes/100 WBC (Bld) 0.300 % 0.0-0.9 [facility] Comment on above: IG% - Immature Granu locytes (promyelocytes, myelocytes and metamyelocytes) > 1% indicates that a LEFT SHIFT is Present. MCH (RBC) [Entitic mass] 29.4 pg 27.0-32.0 [facility] Nucleated RBC/100 WBC (Bld) [Ratio] 0 % 0-5 [facility] MCHC Auto (RBC) [Mass/Vol]Or dered By: Elmo Ackerman on 03-17-2023 MCHC (RBC) [Mass/Vol] 33.4 g/dL 32-36 [facility] No Panel InformationOrdered By: Elmo Ackerman on 03-17-2023 Estimated GFR (MDRD) Amer 61 mL/min >60 [facility] Comment on above: GFR Calc Estimated GFR (MDRD) Non-Af Amer 50 mL/min >60 [facility] Comment on above: Non- GFR Calc Thyroid Stimulating Hormone (TSH) 4.26 uIU/mL 0.358-3.74 [facility] Platelets bldOrdered By: Adam Ackerman on 03-17-2023 Platelets (Bld) [#/Vol] 291 10*3/uL 150-450 [facility] Serum Arcelia Ajmes virus cap maureen IgG antibody assay (units/volume)Ordered By: Elmo Ackerman on 03-17-2023 EBV capsid IgG Qn (S) [arb'U]/mL 0.0-17.9 [facility] Comment on above: Negative <18.0 Equiv ocal 18.0 - 21.9 Positive >21.9 Serum Arcelia James virus cap maureen IgM antibody assay (units/volume)Ordered By: Elmo Ackerman on 03-17-2023 EBV capsid IgM Qn (S) [arb'U]/mL 0.0-35.9 [facility] Comment on above: Negative <36.0 Equiv ocal 36.0 - 43.9 Positive >43.9 Serum Arcelia James virus nuc lear IgG antibody assay (units/volume)Ordered By: Elmo Ackerman on 03-17-2023 EBV nuclear IgG Qn (S) 286.0 U/mL 0.0-17.9 [facility] Comment on above: Negative <18.0 Equiv ocal 18.0 - 21.9 Positive >21.9 Serum or plasma albumin tom urement (mass/volume)Ordered By: Elmo Ackerman on 03-17-2023 Albumin [Mass/Vol] 4.0 g/dL 3.2-5.0 [facility] Serum or plasma albumin/glob ulin mass ratioOrdered By: Elmo Ackerman on 03-17-2023 Albumin/Globulin [Mass ratio] 1.1 {ratio} 0.9-2.4 [facility] Serum or plasma calcium tom urement (mass/volume)Ordered By: Elmo Ackerman on 03-17-2023 Calcium [Mass/Vol] 8.5 mg/dL 8.5-10.1 [facility] Serum or plasma cholesterol in HDL measurement (mass/volume)Ordered By: Elmo Ackerman on 03-17-2023 Cholesterol in HDL [Mass/Vol] 45 mg/dL >40 [facility] Comment on above: The drugs N-Acetylcy steine and Metamizole may falsely depress this assay. Reference Range HDL <40 mg/dL Low HDL Cholesterol HDL >or= 60 mg/dL High HDL Cholesterol Serum or plasma cholesterol in VLDL measurement (mass/volume)Ordered By: Elmo Ackerman on 03-17-2023 Cholesterol in VLDL [Mass/Vol] 45 mg/dL 5-40 [facility] Serum or plasma creatinine m easurement (mass/volume)Ordered By: Elmo Ackerman on 03-17-2023 Creatinine [Mass/Vol] 1.14 mg/dL 0.55-1.02 [facility] Comment on above: The validity of the calculated GFR & GFRAA in patients over 70 years has not been determined. Clinical correlation is essential. Serum or plasma cytomegalovi stephanie (CMV) IgG antibody assay (units/volume)Ordered By: Elmo Ackerman on 03-17-2023 CMV IgG Qn > 10.00 U/mL 0.00-0.59 [facility] Comment on above: Negative <0.60 Equiv ocal 0.60 - 0.69 Positive >0.69Performed at: [facility] [id number] Director: Errol John PhD, Phone: [phone] Serum or plasma low density lipoprotein (LDL) cholesterol measurement (mass/volume)Ordered By: Elmo Ackerman on 03-17-2023 Cholesterol in LDL [Mass/Vol] 145 mg/dL 0-130 [facility] Serum or plasma urea nitroge n measurement (mass/volume)Ordered By: Elmo Ackerman on 03-17-2023 Urea nitrogen [Mass/Vol] 30 mg/dL 7-18 [facility] Thin prep Papanicolaou smear with manual screeningOrdered By: Elmo Ackerman on 03-17-2023 Thin prep Papanicolaou smear with manual screening 20 U/L 15-37 [facility] Thin prep Papanicolaou smear with manual screening 7 5-15 [facility] Thin prep Papanicolaou smear with manual screening Comment . [facility] Comment on above: EBV Interpretation C José: Antibody Present + Antibody Absent -Interpretation VCA-IgM [...] Auto (Unsp spec) [#/Vol] 3.62 10*3/uL 0.83-4.51 [facility] Basophil percentageOrdered B y: Elmo Ackerman on 10-27-2022 Basophil percentage < 0.2 AI 0.0-0.9 [facility] Basophils/100 WBC (Bld) 0.6 % 0-1 [facility] Bilirubin [Mass/Vol] 0.40 mg/dL 0.20-1.00 [facility] Comment on above: For patients on eltr ombopag therapy, use of Dimension Bevier TBIL is not recommended. Chloride [Moles/Vol] 106 mmol/L 98-107 [facility] Eosinophils/100 WBC (Bld) 2.4 % 0-5 [facility] Glucose [Mass/Vol] 106 mg/dL 74-106 [facility] Comment on above: Fasting Glucose resu lt from 100 to 125 mg/dL suggests IMPAIRED HOMEOSTASIS per A.D.A. criteria. Neutrophils (Bld) [#/Vol] 6.1 10*3/uL 2.0-7.7 [facility] Neutrophils/100 WBC (Bld) 56.1 % 47-70 [facility] Potassium [Moles/Vol] 4.3 mmol/L 3.5-5.1 [facility] Protein [Mass/Vol] 7.0 g/dL 6.4-8.2 [facility] Sodium [Moles/Vol] 142 mmol/L 136-145 [facility] WBC (Bld) [#/Vol] 10.8 10*3/uL 4.4-11.0 [facility] Blood erythrocytes count (nu mber/volume)Ordered By: Elmo Ackerman on 10-27-2022 RBC (Bld) [#/Vol] 4.59 10*6/uL 4.2-5.4 [facility] Blood hemoglobin measurement (mass/volume)Ordered By: Elmo Ackerman on 10-27-2022 Hemoglobin (Bld) [Mass/Vol] 13.8 g/dL 12.0-15.0 [facility] Blood lymphocytes/100 leukoc ytesOrdered By: Elmo Ackerman on 10-27-2022 Lymphocytes/100 WBC (Bld) 33.6 % 19-41 [facility] Blood monocytes/100 leukocyt esOrdered By: Elmo Ackerman on 10-27-2022 Monocytes/100 WBC (Bld) 7.1 % 0-10 [facility] Blood platelet mean volumeOr dered By: Elmo Ackerman on 10-27-2022 Platelet mean volume (Bld) [Entitic vol] 10.6 fL 6.2-12.0 [facility] Determination of erythrocyte mean corpuscular volume (MCV)Ordered By: Elmo Ackerman on 10-27-2022 MCV (RBC) [Entitic vol] 88.2 fL 81-99 [facility] Hematocrit Auto (Bld) [Volum e fraction]Ordered By: Elmo Ackerman on 10-27-2022 Hematocrit (Bld) [Volume fraction] 40.5 % 37-47 [facility] - Chemistry and C hemistry - challengeOrdered By: Elmo Ackerman on 10-27-2022 ALP [Catalytic activity/Vol] 98 U/L 45-117 [facility] ALT [Catalytic activity/Vol] 23 U/L 13-56 [facility] CO2 [Moles/Vol] 29.0 mmol/L 21.0-32.0 [facility] Globulin (S) [Mass/Vol] 3.0 g/dL 2.2-4.2 [facility] Urea nitrogen/Creatinine [Mass ratio] 18.0 mg/mg 10-20 [facility] - Hematology and Cell countsOrdered By: Elmo Ackerman on 10-27-2022 Erythrocyte distribution width (RBC) [Entitic vol] 42.1 fL 35.1-43.9 [facility] Erythrocyte distribution width (RBC) [Ratio] 13.1 % 11.6-14.6 [facility] Immature granulocytes/100 WBC (Bld) 0.200 % 0.0-0.9 [facility] Comment on above: IG% - Immature Granu locytes (promyelocytes, myelocytes and metamyelocytes) > 1% indicates that a LEFT SHIFT is Present. MCH (RBC) [Entitic mass] 30.1 pg 27.0-32.0 [facility] Nucleated RBC/100 WBC (Bld) [Ratio] 0 % 0-5 [facility] MCHC Auto (RBC) [Mass/Vol]Or dered By: Elmo Ackerman on 10-27-2022 MCHC (RBC) [Mass/Vol] 34.1 g/dL 32-36 [facility] No Panel InformationOrdered By: Elmo Ackerman on 10-27-2022 Centromere B Antibody <0.2 AI 0.0-0.9 [facility] Estimated GFR (MDRD) Amer 95 mL/min >60 [facility] Comment on above: GFR Calc Estimated GFR (MDRD) Non-Af Amer 78 mL/min >60 [facility] Comment on above: Non- GFR Calc BACK SHOE WORKER Antibody 0.7 AI 0.0-0.9 [facility] Platelets bldOrdered By: Adam Ackerman on 10-27-2022 Platelets (Bld) [#/Vol] 272 10*3/uL 150-450 [facility] Serum DNA double strand anti body assay (units/volume)Ordered By: Elmo Ackerman on 10-27-2022 DNA double strand Ab Qn (S) 1 [IU]/mL 0-9 [facility] Comment on above: Negative <5 Equivoca l 5 - 9 Positive >9 Serum Arcelia James virus cap maureen IgG antibody assay (units/volume)Ordered By: Elmo Ackerman on 10-27-2022 EBV capsid IgG Qn (S) [arb'U]/mL 0.0-17.9 [facility] Comment on above: Negative <18.0 Equiv ocal 18.0 - 21.9 Positive >21.9 Serum Arcelia James virus cap maureen IgM antibody assay (units/volume)Ordered By: Elmo Ackerman on 10-27-2022 EBV capsid IgM Qn (S) [arb'U]/mL 0.0-35.9 [facility] Comment on above: Negative <36.0 Equiv ocal 36.0 - 43.9 Positive >43.9 Serum Arcelia James virus nuc lear IgG antibody assay (units/volume)Ordered By: Elmo Ackerman on 10-27-2022 EBV nuclear IgG Qn (S) 214.0 U/mL 0.0-17.9 [facility] Comment on above: Negative <18.0 Equiv ocal 18.0 - 21.9 Positive >21.9 Serum Sangeetha-1 antibody assay (u nits/volume)Ordered By: Elmo Ackerman on 10-27-2022 Sangeetha-1 extractable nuclear Ab Qn (S) <0.2 AI 0.0-0.9 [facility] Serum Scl-70 extractable nuc lear antibody assay (units/volume)Ordered By: Elmo Ackerman on 10-27-2022 SCL-70 extractable nuclear Ab Qn (S) <0.2 AI 0.0-0.9 [facility] Serum Hernandez extractable nucl ear antibody detectionOrdered By: Elmo Ackerman on 10-27-2022 Hernandez extractable nuclear Ab Ql (S) <0.2 AI 0.0-0.9 [facility] Serum or plasma albumin tom urement (mass/volume)Ordered By: Elmo Ackerman on 10-27-2022 Albumin [Mass/Vol] 4.0 g/dL 3.2-5.0 [facility] Serum or plasma albumin/glob ulin mass ratioOrdered By: Elmo Ackerman on 10-27-2022 Albumin/Globulin [Mass ratio] 1.3 {ratio} 0.9-2.4 [facility] Serum or plasma calcium tom urement (mass/volume)Ordered By: Elmo Ackerman on 10-27-2022 Calcium [Mass/Vol] 8.7 mg/dL 8.5-10.1 [facility] Serum or plasma creatinine m easurement (mass/volume)Ordered By: Elmo Ackerman on 10-27-2022 Creatinine [Mass/Vol] 0.78 mg/dL 0.55-1.02 [facility] Comment on above: The validity of the calculated GFR & GFRAA in patients over 70 years has not been determined. Clinical correlation is essential. Serum or plasma urea nitroge n measurement (mass/volume)Ordered By: Elmo Ackerman on 10-27-2022 Urea nitrogen [Mass/Vol] 14 mg/dL 7-18 [facility] Thin prep Papanicolaou smear with manual screeningOrdered By: Elmo Ackerman on 10-27-2022 Thin prep Papanicolaou smear with manual screening 12 U/L 15-37 [facility] Thin prep Papanicolaou smear with manual screening 7 5-15 [facility] Thin prep Papanicolaou smear with manual screening Comment . [facility] Comment on above: EBV Interpretation C José: Antibody Present + Antibody Absent -Interpretation VCA-IgM [...] EBV never develop antibodies to EBNA.Performed at: [facility] [employer] [id number] Director: Errol John PhD, Phone: [phone] Cerebrospinal fluid Borrelia burgdorferi 18kd IgG antibody detection by immunoblotOrdered By: Elmo Ackerman on 07-14-2022 B. burgdorferi 18kD IgG IB Ql (CSF) Absent . [facility] Cerebrospinal fluid Borrelia burgdorferi 23kD IgG antibody detection by immunoblotOrdered By: Elmo Ackerman on 07-14-2022 B. burgdorferi 23kD IgG IB Ql (CSF) Absent . [facility] Cerebrospinal fluid Borrelia burgdorferi 23kD IgM antibody detection by immunoblotOrdered By: Elmo Ackerman on 07-14-2022 B. burgdorferi 23kD IgM IB Ql (CSF) Absent . [facility] Cerebrospinal fluid Borrelia burgdorferi 28kD IgG antibody detection by immunoblotOrdered By: Elmo Ackerman on 07-14-2022 B. burgdorferi 28kD IgG IB Ql (CSF) Present . [facility] Cerebrospinal fluid Borrelia burgdorferi 39kD IgG antibody detection by immunoblotOrdered By: Elmo Ackerman on 07-14-2022 B. burgdorferi 39kD IgG IB Ql (CSF) Present . [facility] Cerebrospinal fluid Borrelia burgdorferi 39kD IgM antibody detection by immunoblotOrdered By: Elmo Ackerman on 07-14-2022 B. burgdorferi 39kD IgM IB Ql (CSF) Absent . [facility] Cerebrospinal fluid Borrelia burgdorferi 41kD IgM antibody detection by immunoblotOrdered By: lEmo Ackerman on 07-14-2022 B. burgdorferi 41kD IgM IB Ql (CSF) Absent . [facility] No Panel InformationOrdered By: Elmo Ackerman on 07-14-2022 Lyme Disease IgG Ab 30 kDa Band Absent . [facility] Lyme Disease IgG Ab 93 kDa Band Present . [facility] Lyme Disease IgG West [place]ot Interp Positive . [facility] Comment on above: Positive: 5 of the f ollowing Borrelia-specific bands: 18,23,28,30,39,41,45,58, 66, and 93. Negative: No bands or banding patterns which do not meet positive criteria. Lyme Disease IgM Ab ([place] Blot) Negative . [facility] Comment on above: Note: An equivocal o r positive EIA result followed by anegative Line Blot result is considered NEGATIVE. Anequivocal or positive EIA result followed by a positiveLine Blot is considered POSITIVE by the CDC.Positive: 2 of the following bands: 23,39 or 41Negative: No bands or banding patterns which do not meetpositive criteria.Criteria for positivity are those recommended byCDC/ASTPHLD. p23=Osp C, m83=onuvdvmgaNeif:Sera from individuals with the following may cross [...] testingto improve the sensitivity and specificity of testing.[facility] offers test code 533981 Lyme Disease Serology withReflex to aid in the diagnosis of Lyme Disease.Performed at: [address] [id number] Director: Kory Holley MD, Phone: [phone] Serum Borrelia burgdorferi 4 1kD IgG antibody detection by immunoblotOrdered By: Elmo Ackerman on 07-14-2022 B. burgdorferi 41kD IgG IB Ql (S) Present . [facility] Serum Borrelia burgdorferi 6 6kD IgG antibody detection by immunoblotOrdered By: Elmo Ackerman on 07-14-2022 B. burgdorferi 66kD IgG IB Ql (S) Absent . [facility] Synovial fluid Borrelia christopher dorferi 45kD IgG antibody detection by immunoblotOrdered By: Elmo Ackerman on 07-14-2022 B. burgdorferi 45kD IgG IB Ql (Syn fld) Absent . [facility] Synovial fluid Borrelia christopher dorferi 58kD IgG antibody detection by immunoblotOrdered By: Elmo Ackerman on 07-14-2022 B. burgdorferi 58kD IgG IB Ql (Syn fld) Present . [facility] MARISA SCREENINGon 06-25-2022 [facility] Absolute lymphocyte counton 06-17-2022 Lymphocytes Auto (Unsp spec) [#/Vol] 3.38 10*3/uL 0.83-4.51 [facility] Work Phone: Basophil percentageon 2021 Basophils/100 WBC (Bld) 0.5 % 0-1 [facility] Work Phone: Bilirubin [Mass/Vol] 0.40 mg/dL 0.20-1.00 [facility] Work Phone: Comment on above: For patients on eltr ombopag therapy, use of Dimension Bevier TBIL is not recommended. Chloride [Moles/Vol] 106 mmol/L 98-107 [facility] Work Phone: Cholesterol [Mass/Vol] 222 mg/dL <200 [facility] Work Phone: Comment on above: <200 mg/dL Desirable 200-240 mg/dL Borderline >240 mg/dL High Risk Eosinophils/100 WBC (Bld) 1.1 % 0-5 [facility] Work Phone: Glucose [Mass/Vol] 116 mg/dL 74-106 [facility] Work Phone: Comment on above: Fasting Glucose resu lt from 100 to 125 mg/dL suggests IMPAIRED HOMEOSTASIS per A.D.A. criteria. Neutrophils (Bld) [#/Vol] 5.6 10*3/uL 2.0-7.7 [facility] Work Phone: Neutrophils/100 WBC (Bld) 56.8 % 47-70 [facility] Work Phone: Potassium [Moles/Vol] 3.7 mmol/L 3.5-5.1 [facility] Work Phone: Protein [Mass/Vol] 7.1 g/dL 6.4-8.2 [facility] Work Phone: Sodium [Moles/Vol] 139 mmol/L 136-145 [facility] Work Phone: Triglyceride [Mass/Vol] 219 mg/dL <199 [facility] Work Phone: Comment on above: The drugs N-Acetylcy steine and Metamizole may falsely depress this assay.Serum Triglycerides Reference Interval Normal <150 mg/dL Borderline high 150 - 199 mg/dL High 200 - 499 mg/dL Very High > or = 500 mg/dL WBC (Bld) [#/Vol] 9.8 10*3/uL 4.4-11.0 [facility] Work Phone: Blood erythrocytes count (nu mber/volume)on 06-17-2022 RBC (Bld) [#/Vol] 4.75 10*6/uL 4.2-5.4 [facility] Work Phone: Blood hemoglobin measurement (mass/volume)on 06-17-2022 Hemoglobin (Bld) [Mass/Vol] 13.8 g/dL 12.0-15.0 [facility] Work Phone: Blood lymphocytes/100 leukoc yteson 06-17-2022 Lymphocytes/100 WBC (Bld) 34.3 % 19-41 [facility] Work Phone: Blood monocytes/100 leukocyt eson 06-17-2022 Monocytes/100 WBC (Bld) 7.0 % 0-10 [facility] Work Phone: Blood platelet mean volumeon 06-17-2022 Platelet mean volume (Bld) [Entitic vol] 10.7 fL 6.2-12.0 [facility] Work Phone: Determination of erythrocyte mean corpuscular volume (MCV)on 06-17-2022 MCV (RBC) [Entitic vol] 88.6 fL 81-99 [facility] Work Phone: Hematocrit Auto (Bld) [Volum e fraction]on 06-17-2022 Hematocrit (Bld) [Volume fraction] 42.1 % 37-47 [facility] Work Phone: Laboratory - Chemistry and C hemistry - challengeon 06-17-2022 ALP [Catalytic activity/Vol] 88 U/L 45-117 [facility] Work Phone: ALT [Catalytic activity/Vol] 21 U/L 13-56 [facility] Work Phone: CO2 [Moles/Vol] 27.0 mmol/L 21.0-32.0 [facility] Work Phone: Globulin (S) [Mass/Vol] 3.3 g/dL 2.2-4.2 [facility] Work Phone: Urea nitrogen/Creatinine [Mass ratio] 24.0 mg/mg 10-20 [facility] Work Phone: Laboratory - Hematology and Cell countson 06-17-2022 Erythrocyte distribution width (RBC) [Entitic vol] 42.2 fL 35.1-43.9 [facility] Work Phone: Erythrocyte distribution width (RBC) [Ratio] 13.0 % 11.6-14.6 [facility] Work Phone: Immature granulocytes/100 WBC (Bld) 0.300 % 0.0-0.9 [facility] Work Phone: Comment on above: IG% - Immature Granu locytes (promyelocytes, myelocytes and metamyelocytes) > 1% indicates that a LEFT SHIFT is Present. MCH (RBC) [Entitic mass] 29.1 pg 27.0-32.0 [facility] Work Phone: Nucleated RBC/100 WBC (Bld) [Ratio] 0 % 0-5 [facility] Work Phone: MCHC Auto (RBC) [Mass/Vol]on 06-17-2022 MCHC (RBC) [Mass/Vol] 32.8 g/dL 32-36 [facility] Work Phone: No Panel Informationon 06-17 Estimated GFR (MDRD) Amer 88 mL/min >60 [facility] Work Phone: Comment on above: GFR Calc Estimated GFR (MDRD) Non-Af Amer 72 mL/min >60 [facility] Work Phone: Comment on above: Non- GFR Calc Thyroid Stimulating Hormone (TSH) 1.25 uIU/mL 0.358-3.74 [facility] Work Phone: Platelets bldon 06-17-2022 Platelets (Bld) [#/Vol] 310 10*3/uL 150-450 [facility] Work Phone: Serum or plasma albumin tom urement (mass/volume)on 06-17-2022 Albumin [Mass/Vol] 3.8 g/dL 3.2-5.0 [facility] Work Phone: Serum or plasma albumin/glob ulin mass ratioon 06-17-2022 Albumin/Globulin [Mass ratio] 1.2 {ratio} 0.9-2.4 [facility] Work Phone: Serum or plasma calcium tom urement (mass/volume)on 06-17-2022 Calcium [Mass/Vol] 8.9 mg/dL 8.5-10.1 [facility] Work Phone: Serum or plasma cholesterol in HDL measurement (mass/volume)on 06-17-2022 Cholesterol in HDL [Mass/Vol] 44 mg/dL >40 [facility] Work Phone: Comment on above: The drugs N-Acetylcy steine and Metamizole may falsely depress this assay. Reference Range HDL <40 mg/dL Low HDL Cholesterol HDL >or= 60 mg/dL High HDL Cholesterol Serum or plasma cholesterol in VLDL measurement (mass/volume)on 06-17-2022 Cholesterol in VLDL [Mass/Vol] 44 mg/dL 5-40 [facility] Work Phone: Serum or plasma creatinine m easurement (mass/volume)on 06-17-2022 Creatinine [Mass/Vol] 0.83 mg/dL 0.55-1.02 [facility] Work Phone: Comment on above: The validity of the calculated GFR & GFRAA in patients over 70 years has not been determined. Clinical correlation is essential. Serum or plasma low density lipoprotein (LDL) cholesterol measurement (mass/volume)on 06-17-2022 Cholesterol in LDL [Mass/Vol] 134 mg/dL 0-130 [facility] Work Phone: Serum or plasma urea nitroge n measurement (mass/volume)on 06-17-2022 Urea nitrogen [Mass/Vol] 20 mg/dL 7-18 [facility] Work Phone: Thin prep Papanicolaou smear with manual screeningon 06-17-2022 Thin prep Papanicolaou smear with manual screening 15 U/L 15-37 [facility] Work Phone: Thin prep Papanicolaou smear with manual screening 6 5-15 [facility] Work Phone: CNCOon 08-13-2021 [facility] HNO ID: [id number] Author: Mammography Coordinator Service: ? Author Type: Physician Type: Letter Filed: 08/14/2021 11:32 PM Note Text: [address] [address] August 13, 2021 PID: [id number] Deepa Jordan [address] [place] [address] Dear Ms. Jordan, We are pleased to [...] report will be kept on file at [facility] as part of your permanent medical record and are available for your continuing care. Thank you for allowing us to help in meeting your health care needs. Sincerely, Dr. Castro Interpreting Radiologist [facility] (Normal over 40) Normal [facility] CNCOon 07-22-2021 [facility] HNO ID: [id number] Author: Mammography Coordinator Service: ? Author Type: Physician Type: Letter Filed: 07/23/2021 11:36 PM Note Text: [address] [address] July 22, 2021 PID: [id number] Deepa Jordan [address] [place] [address] Dear Ms. Jordan, Your recent breast imaging exam on 07/22/2021 showed a possible finding that requires additional imaging studies for a complete evaluation. Most such findings are probably benign (not cancer). If you have a healthcare provider who ordered/prescribed your screening mammogram: Please call [phone] to schedule an appointment for your additional imaging (if you have not already done so). If you DO NOT have a healthcare provider (ie you did not have an order/prescription for your screening mammogram): Please call [phone] to schedule an appointment for your additional [...] and reports are kept on file at [facility] as part of your permanent medical record, and are available for your continuing care. Thank you for allowing us to help in meeting your health care needs. Sincerely, Dr. Parrish Interpreting Radiologist [facility] (Additional imaging) Normal [facility] Clinical Summary: HMSPatient IDon 09-18-2020 SOP Sharmila [facility] Work Phone: [facility] 05-07-2020 [facility] Final Report DATE OF EXAM: May 07 2020 10:14AM LDW [id number] - [facility] / PROCEDURE REASON: Screening Physician Interpretation #[id number] - [facility] BILATERAL DIGITAL SCREENING MAMMOGRAM WITH CAD: [...] mammogram, 09/12/2014 mammogram, and 09/07/2013 mammogram - [facility]. The tissue of both breasts is predominantly fatty. No significant masses, calcifications, or other findings are seen in either breast. There has been no significant interval change. IMPRESSION: NEGATIVE There is no mammographic evidence of malignancy. A 1 year screening mammogram is recommended. Mickey teixeira/breanna:05/07/2020 10:16:43 Truck Driver Teamster(s): Jovon Velazquez (R)(M), [facility] letter sent: Normal over 40 Mammogram [...] Health, Family Medicine, and Medical/Surgical Oncology, the [facility] has carefully reviewed the data and [...] their providers when to stop screening mammograms. Industrial Trainer: Breanna Transcribe Date/Time: May 07 2020 9:59A Dictated by : MICKEY GTZ MD This examination was interpreted and the report reviewed and electronically signed by: MICKEY GTZ MD on May 07 2020 10:16AM EST Normal [facility] Vital Signs Date Time Vital Sign Value Performing Clinician Facility 05-23-2025 16:17-0400 Body height 160.02 cm Elmo Ackerman ADMEASURER-C Work Phone: [facility] 05-23-2025 16:17-0400 Body mass index (BMI) [Ratio] 14 kg/m2 Elmo Ackerman ADMEASURER-C Work Phone: [facility] 05-23-2025 16:17-0400 Body temperature 97.9 [degF] Elmo Ackerman ADMEASURER-C Work Phone: [facility] 05-23-2025 16:17-0400 Body weight 35.83 kg Elmo Ackerman ADMEASURER-C Work Phone: [facility] 05-23-2025 16:17-0400 Diastolic blood pressure 60 mm[Hg] Elmo Ackerman ADMEASURER-C Work Phone: [facility] 05-23-2025 16:17-0400 Heart rate 64 /min Elmo Ackerman ADMEASURER-C Work Phone: [facility] 05-23-2025 16:17-0400 Respiratory rate 18 /min Elmo Ackerman ADMEASURER-C Work Phone: [facility] 05-23-2025 16:17-0400 SaO2% (BldA) [Mass fraction] 96 % Elmo Ackerman ADMEASURER-C Work Phone: [facility] 05-23-2025 16:17-0400 Systolic blood pressure 122 mm[Hg] Elmo Ackerman ADMEASURER-C Work Phone: [facility] 02-03-2024 18:33-0400 Body height 160.02 cm [facility] 11-26-2023 17:40-0500 Body mass index (BMI) [Ratio] 32.1 kg/m2 [facility] 11-26-2023 17:40-0500 Body temperature 97.9 [degF] [facility] 11-26-2023 17:40-0500 Body weight 82.1 kg [facility] 11-26-2023 17:40-0500 Diastolic blood pressure 70 mm[Hg] [facility] 11-26-2023 17:40-0500 Heart rate 77 /min [facility] 11-26-2023 17:40-0500 Respiratory rate 18 /min [facility] 11-26-2023 17:40-0500 SaO2% (BldA) [Mass fraction] 98 % [facility] 11-26-2023 17:40-0500 Systolic blood pressure 115 mm[Hg] [facility] 04-22-2023 14:39-0400 Body height 160.02 cm [facility] 04-22-2023 14:39-0400 Body mass index (BMI) [Ratio] 30.9 kg/m2 [facility] 04-22-2023 14:39-0400 Body temperature 97.5 [degF] [facility] 04-22-2023 14:39-0400 Body weight 79.37 kg [facility] 04-22-2023 14:39-0400 Diastolic blood pressure 60 mm[Hg] [facility] 04-22-2023 14:39-0400 Heart rate 96 /min [facility] 04-22-2023 14:39-0400 Respiratory rate 18 /min [facility] 04-22-2023 14:39-0400 SaO2% (BldA) [Mass fraction] 97 % [facility] 04-22-2023 14:39-0400 Systolic blood pressure 104 mm[Hg] [facility] 03-17-2023 19:31-0400 Body height 160.02 cm [facility] 03-17-2023 19:31-0400 Body mass index (BMI) [Ratio] 31.8 kg/m2 [facility] 03-17-2023 19:31-0400 Body temperature 97.7 [degF] [facility] 03-17-2023 19:31-0400 Body weight 81.64 kg [facility] 03-17-2023 19:31-0400 Diastolic blood pressure 80 mm[Hg] [facility] 03-17-2023 19:31-0400 Heart rate 87 /min [facility] 03-17-2023 19:31-0400 Respiratory rate 18 /min [facility] 03-17-2023 19:31-0400 SaO2% (BldA) [Mass fraction] 96 % [facility] 03-17-2023 19:31-0400 Systolic blood pressure 115 mm[Hg] [facility] 10-27-2022 16:14-0500 Body height 160.02 cm [facility] 10-27-2022 16:14-0500 Body mass index (BMI) [Ratio] 30.2 kg/m2 [facility] 10-27-2022 16:14-0500 Body temperature 97.9 [degF] [facility] 10-27-2022 16:14-0500 Body weight 77.33 kg [facility] 10-27-2022 16:14-0500 Diastolic blood pressure 80 mm[Hg] [facility] 10-27-2022 16:14-0500 Heart rate 67 /min [facility] 10-27-2022 16:14-0500 Respiratory rate 18 /min [facility] 10-27-2022 16:14-0500 SaO2% (BldA) [Mass fraction] 97 % [facility] 10-27-2022 16:14-0500 Systolic blood pressure 130 mm[Hg] [facility] 07-14-2022 17:47-0400 Body height 160.02 cm [facility] Work Phone: 07-14-2022 17:47-0400 Body mass index (BMI) [Ratio] 31.3 kg/m2 [facility] 07-14-2022 17:47-0400 Body temperature 97.9 [degF] [facility] 07-14-2022 17:47-0400 Body weight 80.28 kg [facility] 07-14-2022 17:47-0400 Diastolic blood pressure 70 mm[Hg] [facility] 07-14-2022 17:47-0400 Heart rate 76 /min [facility] 07-14-2022 17:47-0400 Respiratory rate 18 /min [facility] 07-14-2022 17:47-0400 SaO2% (BldA) [Mass fraction] 97 % [facility] 07-14-2022 17:47-0400 Systolic blood pressure 110 mm[Hg] [facility] 06-17-2022 16:33-0400 Body mass index (BMI) [Ratio] 31.3 kg/m2 [facility] Work Phone: 06-17-2022 16:33-0400 Body temperature 97.9 [degF] [facility] Work Phone: 06-17-2022 16:33-0400 Body weight 80.28 kg [facility] Work Phone: 06-17-2022 16:33-0400 Diastolic blood pressure 70 mm[Hg] [facility] Work Phone: 06-17-2022 16:33-0400 Heart rate 96 /min [facility] Work Phone: 06-17-2022 16:33-0400 Respiratory rate 18 /min [facility] Work Phone: 06-17-2022 16:33-0400 SaO2% (BldA) [Mass fraction] 96 % [facility] Work Phone: 06-17-2022 16:33-0400 Systolic blood pressure 112 mm[Hg] [facility] Work Phone: NEGATED: Highlighted [id number] 10:11-0500 BMI (Body Mass Index) 35.32 kg/m2 Eunice Conrad JUAN [facility] Work Phone: NEGATED: Highlighted [id number] 10:11-0500 Body weight 92.99 kg Eunice Conrad LPN [facility] Work Phone: NEGATED: Highlighted [id number] 10:050 Body weight 93 kg Eunice Conrad LPN [facility] Work Phone: NEGATED: Highlighted [id number] 10:050 Height 162.56 cm Eunice Conrad LPN [facility] Work Phone: NEGATED: Highlighted [id number] 10:0500 Height 163 cm Eunice Conrad LPN [facility] Work Phone: Encounters Encounter Date Encounter Type Care Provider Facility Start: 08-01-2025 End: 08-01-2025 ambulatory MIRANDA L DUANE Facility:[facility] Start: 07-31-2025 End: 07-31-2025 ambulatory MIRANDA Mason DUANE Facility:[facility] Start: 07-03-2025 End: 07-03-2025 ambulatory MIRANDA Marlon [facility] Facility:[facility] Start: 05-23-2025 End: 05-23-2025 ambulatory Elmo Ackerman ADMEASURER-C Work Phone: -Laboratory Specimen Start: 05-23-2025 End: 05-23-2025 Patient encounter procedure Elmo Ackerman ADMEASURER-C -Laboratory Specimen Work Phone: Start: 05-23-2025 End: 05-23-2025 ambulatory Elmo Ackerman Facility:[facility] Start: 05-21-2025 End: 05-22-2025 Emergency department patient visit [facility] Facility:[facility] Start: 04-17-2025 Non-patient / Non-visit Dr. Tati oreilly MD -[facility] Work Phone: Start: 10-26-2024 ambulatory ELMO ACKERMAN Facil ity:[facility] Start: 10-26-2024 End: 10-26-2024 Subsequent hospital visit by physician Mammo/Bone Density [facility] Comment on above: Encounter for screen ing mammogram for malignant neoplasm of breast [Z12.31] Start: 09-25-2024 Encounter for genera l adult medical examination without abnormal findings Elmo Ackerman [facility] Start: 08-28-2024 End: 08-28-2024 ambulatory Elmo Ackerman Facility:[facility] Start: 02-02-2024 End: 02-02-2024 ambulatory [facility] Work Phone: Start: 02-02-2024 End: 02-02-2024 Patient encounter procedure [facility], [facility] Work Phone: Start: 09-16-2023 Documentation procedure Mammog lynne Coordinator [facility] Start: 09-16-2023 Letter encounter Mammography Coordinator [facility] NOT LISTED Start: 09-15-2023 End: 09-15-2023 Subsequent hospital visit by physician Mammo/Bone Density [facility] Start: 05-18-2023 End: 05-18-2023 Subsequent hospital visit by physician Xr [facility] Comment on above: Cervicalgia [M54.2] Start: 04-22-2023 End: 04-22-2023 ambulatory [facility] Work Phone: Start: 04-22-2023 End: 04-22-2023 Patient encounter procedure [facility]-Laboratory, Specimen Work Phone: Start: 03-17-2023 End: 03-17-2023 ambulatory [facility] Work Phone: Start: 03-17-2023 End: 03-17-2023 Patient encounter procedure [facility]-Laboratory, Specimen Start: 10-27-2022 End: 10-27-2022 ambulatory [facility] Work Phone: Start: 10-27-2022 End: 10-27-2022 Patient encounter procedure [facility]-Laboratory, Specimen Start: 07-14-2022 End: 07-14-2022 ambulatory [facility] Work Phone: Start: 07-14-2022 End: 09-27-2022 Patient encounter procedure [facility]-Laboratory, Specimen Start: 06-25-2022 Documentation procedure Mammog lynne Coordinator [facility] Start: 06-25-2022 Letter encounter Mammography Coordinator [place] [facility] NOT LISTED Start: 06-25-2022 End: 06-25-2022 Subsequent hospital visit by physician Xr [facility] Comment on above: Encounter for screen ing mammogram for malignant neoplasm of breast [Z12.31] Age-related osteopor osis without current pathological fracture [M81.0] Start: 06-17-2022 End: 06-17-2022 Patient encounter procedure [facility]-Laboratory, Specimen Start: 06-17-2022 Patient encounter status [facility] Start: 09-18-2020 End: 09-18-2020 Ot evaluation Arun Torres MD Work Phone: [facility] Work Phone: Start: 09-18-2020 End: 09-18-2020 Patient encounter procedure Arun Torres MD Work Phone: [facility] Work Phone: Start: 03-06-2020 Patient encounter procedure [facility] Procedures Date Procedure Procedure Detail Performing Clinician Start: 05-23-2025 T3 reverse measurement Elmo Ackerman ADMEASURER-C Work Phone: Comment on above: Performed at: [address] [id number] Director: Kory Holley MD, Phone: [phone] Start: 02-02-2024 US urinary tract Start: 06-25-2022 End: 06-25-2022 Mammography Elmo Ackerman ANIMAL NURSE.SUPPORT DIRECTOR Work Phone: Start: 09-18-2020 End: 09-18-2020 Blood [...] 09-18-2020 Documentation of current medications Eunice Conrad LPN Plan of Treatment Date Care Activity Detail Author Start: 2029 RSV Vaccine (1 - 1-dose 75+ series) RSV Vaccine (1 - 1-dose 75+ series) [facility] Start: 05-16-2027 Diabetes Screening Diabetes Screening [facility] Start: 10-18-2024 Advance Directive Discussion Advance Directive Discussion [facility] Start: 09-15-2024 Mammography Mammogram Screening [facility] Start: 09-15-2024 Screening for malignant neoplasm of breast Mammogram Screening [facility] Start: 06-18-2024 Covid-19 Vaccine ( season) Covid-19 Vaccine () [facility] Start: 06-18-2024 Influenza vaccination [facility] Start: 06-25-2023 Mammography [facility] Start: 06-18-2023 Covid-19 Vaccine () Covid-19 Vaccine () [facility] Start: 06-18-2023 Influenza vaccination [facility] Start: 10-18-2022 ADVANCE DIRECTIVE DISCUSSION ADVANCE DIRECTIVE DISCUSSION [facility] Start: 10-18-2022 DEPRESSION ASSESSMENT DEPRESSION ASSESSMENT [facility] Start: 07-14-2022 Borrelia burgdorferi blot test [facility] Work Phone: Start: 06-18-2022 Influenza vaccination INFLUENZA (#1) [facility] Start: 12-30-2021 COVID-19 VACCINE (4 - Booster for Moderna series) COVID-19 VACCINE (4 - Booster for Moderna series) [facility] Start: 10-27-2021 COVID-19 VACCINE (4 - Moderna series) COVID-19 VACCINE (4 - Moderna series) [facility] Start: 10-18-2021 ADVANCE DIRECTIVE DISCUSSION ADVANCE DIRECTIVE DISCUSSION [facility] Start: 12-17-2020 DIABETES SCREEN DIABETES SCREEN [facility] Start: 12-17-2020 Diabetes Screening Diabetes Screening [facility] Start: 09-18-2020 End: 09-18-[address] [facility] Work Phone: Start: 09-18-2020 End: 09-18-2020 Radex hand minimum 3 views XR HAND 3+ VWS-LT [facility] Work Phone: Start: 2019 BONE DENSITY BONE DENSITY [facility] Start: 2019 Pneumococcal Vaccine: 65+ (1 - PCV) Pneumococcal Vaccine: 65+ (1 - PCV) [facility] Start: 2019 PNEUMOCOCCAL: 65+ (1 - PCV) PNEUMOCOCCAL: 65+ (1 - PCV) [facility] Start: 2014 RSV Vaccine (1 - 1-dose 60+ series) RSV Vaccine (1 - 1-dose 60+ series) [facility] Start: 2004 Pneumococcal Vaccine: 50+ (1 of 1 - PCV) Pneumococcal Vaccine: 50+ (1 of 1 - PCV) [facility] Start: 2004 Screening for malignant neoplasm of lung Lung Cancer Screening [facility] Start: 2004 SHINGRIX VACCINE (1 of 2) SHINGRIX VACCINE (1 of 2) [facility] Start: 1999 COLOGUARD (FIT-DNA) COLOGUARD (FIT-DNA) [facility] Start: 1999 Colonoscopy COLONOSCOPY [facility] Start: 1999 COLORECTAL CANCER SCREENING COLORECTAL CANCER SCREENING [facility] Start: [address] COLONOGRAPHY [facility] Start: 1999 FECAL OCCULT BLOOD FECAL OCCULT BLOOD [facility] Start: 1999 Lipid 1996 panel - Serum or Plasma Lipid Screening [facility] Start: 1999 Lipid panel Lipid Screening [facility] Start: 1999 LIPID SCREEN LIPID SCREEN [facility] Start: 1999 Screening for malignant neoplasm of colon [facility] Start: 1999 SIGMOIDOSCOPY SIGMOIDOSCOPY [facility] Start: 1973 Urine microalbumin profile [facility] Start: 1972 Anxiety Screening Anxiety Screening [facility] Start: 1972 Depression Screening Depression Screening [facility] Start: 1972 HEPATITIS C SCREENING HEPATITIS C SCREENING [facility] Start: 1972 Hepatitis C screening Hepatitis C Screening [facility] Start: 1966 Adult depression screening assessment DEPRESSION SCREENING [facility] Laboratory data interpretation [facility] Work Phone: Immunizations Immunization Date Immunization Notes Care Provider Fa cili 09-23-2022 influenza virus vacc ine, unspecified formulation Mammo[facility] Hosp [facility] Payers Date Payer Category Payer Self-pay [id number] 2023 Private Health Insurance [id number] 2021 Medicare [id number] 1955 Unknown [id number] [id number] [id number] 1954 Unknown [id number] 2.16.8 [id number] 1954 Unknown [id number] 2.16.8 [id number] 1954 Unknown [id number] 2.16.8 [id number] Private Health Insurance [id number] Private Health Insurance [id number] Private Health Insurance Unknown [id number] Unknown [id number] [id number] [id number] Unknown [id number] [id number] [id number] Social History Date Type Detail Facility Start: 07-14-2022 End: 04-22-2023 Assertion Unknown if ever smoked [facility] Work Phone: Start: 12-16-2017 [facility] Work Phone: Start: 10-18-1972 End: 10-18-2012 History of tobacco use Current smoker [facility] Work Phone: Start: 10-18-1972 End: 10-18-2012 History of tobacco use Cigarette Smoker [facility] Work Phone: Start: 12-16-2017 End: 05-17-2024 Cigarettes smoked current (pack per day) - Reported 1 [facility] Start: 12-16-2017 Tobacco use and exposure Smokeless tobacco non-user [facility] Work Phone: Start: 06-22-2018 End: 05-16-2024 Alcohol intake Current non-drinker of alcohol (finding) [facility] Start: 12-16-2017 History SDOH Alcohol Comment Once a year on her birthday [facility] Start: 12-16-2017 Tobacco Comment 42 years total average 1ppd [facility] Start: 1955 Sex Assigned At Not on file [facility] Start: 06-15-2022 End: 06-25-2022 Exposure to SARS-CoV-2 (event) Not sure [facility] Start: 01-05-1956 Sex Assigned At Female W [facility] Start: 06-22-2018 End: 05-17-2024 Tobacco use panel [facility] National Score (1-10 0), lower number is lower risk Not on file [facility] Start: 05-23-2025 Tobacco smoking stat us NHIS Smokes tobacco daily (finding) [facility] Clinical Notes 07-22-2021 to 05-23-2025 Note Date & Type Note Facility 05-23-2025 Evaluation note Diagnosis Onset Date Resolution Bigeminy acute May 23 5:38pm Fatigue acute May 23 5:38pm Hypothyroidism (acquired) acute May 23, 2025 5:38pm [facility] Work Phone: 1(964) 674-501801-09-2025 History of Present illness Narrative* Geno Phan RT(R) - 10/26/2024 10:30 AM EST Radiology Service Progress Note PATIENT NAME: Deepa Jordan DATE OF SERVICE: October 26, 2024 TIME: 10:16 AM PATIENT IDENTITY VERIFICATION COMPLETED USING TWO (2) IDENTIFIERS: Name and Date of confirmedby patient verbally. FALL SCREENING: Has the patient had 2 falls in the last year or 1 fall with injury or currently using an Ambulatory Assistive Device (Walker, Cane, Wheelchair, Crutches, etc.)? No PATIENT GENDER DATA: Female. status: : No status: N/A PATIENT RELEVANT IMPLANT DATA REVIEWED: Not Applicable PATIENT PRESENTS WITH AN IMPLANTABLE OR ATTACHED WOLF HUNTER: No RADIOLOGY DEPARTMENT: Mammography PERIPHERAL IV DATA: Not applicable SIGNED BY: DAVID Velazquez) October 26, 2024 10:16 AM [facility]25 NoteHNO ID: [id number] Author: GENO PHAN RT(R) Service: Radiology Author Type: Technologist Type: Progress [...] PATIENT PRESENTS WITH AN IMPLANTABLE OR ATTACHED WOLF HUNTER: No RADIOLOGY DEPARTMENT: Mammography PERIPHERAL IV DATA: Not applicable SIGNED BY: RT Caroline(R) October 26, 2024 10:16 [facility]11-30-2023 Miscellaneous Notes* Letter - Coordinator, Mammography - 09/16/2023 4:22 PM EST [address] [address] September 17, 2023 PID: [id number] Deepa Jordan [address] [place] [address] Dear Ms. Jordan, We are pleased to [...] report will be kept on file at [facility] as part of your permanent medical record and are available for your continuing care. Thank you for allowing us to help in meeting your health care needs. Sincerely, Dr. Parrish Interpreting Radiologist [facility] (Normal over 40) documented in this [facility]11-29-2023 History of Present illness Narrative* Geno Phan RT(R) - 09/15/2023 2:30 PM EST Radiology Service Progress Note PATIENT NAME: Deepa Jordan DATE OF SERVICE: September 15, 2023 TIME: 2:30 PM PATIENT IDENTITY VERIFICATION COMPLETED USING TWO (2) IDENTIFIERS: Name and Date of confirmedby patient verbally. FALL SCREENING: Has the patient had 2 falls in the last year or 1 fall with injury or currently using an Ambulatory Assistive Device (Walker, Cane, Wheelchair, Crutches, etc.)? No PATIENT GENDER DATA: Female. status: : No status: N/A PATIENT RELEVANT IMPLANT DATA REVIEWED: Not Applicable RADIOLOGY DEPARTMENT: Mammography PERIPHERAL IV DATA: Not applicable SIGNED BY: RT Caroline(R) September 15, 2023 2:30 PM [facility] History of Present illness Narrative* Haritha Bravo RT(Jason) - 05/18/2023 10:30 AM EDT Radiology Service Progress Note PATIENT NAME: Deepa Jordan DATE OF SERVICE: May 18, 2023 TIME: 12:11 PM PATIENT IDENTITY VERIFICATION COMPLETED USING TWO (2) IDENTIFIERS: Name and Date of confirmedby patient verbally. FALL SCREENING: Has the patient had 2 falls in the last year or 1 fall with injury or currently using an Ambulatory Assistive Device (Walker, Cane, Wheelchair, Crutches, etc.)? No PATIENT GENDER DATA: Female. status: : No status: NO. PATIENT RELEVANT IMPLANT DATA REVIEWED: Not Applicable RADIOLOGY DEPARTMENT: General X-ray: Exam(s) Completed: Spine X-Ray(s): Cervical AP / LAT / OBL andLumbar AP / LAT / L5-S1 / OBL Pelvis X-Ray: Pelvis with Hip Bilateral Lower Extremity X-Ray(s): Knee, AP Only Bilateral PERIPHERAL IV DATA: Not applicable SIGNED BY: RT Ginny(R) May 18, 2023 12:11 PM documented in [facility]09-08-2022 Miscellaneous Notes* Letter - Mammography Coordinator - 06/25/2022 12:53 PM EDT [address] [address] June 25, 2022 PID: [id number] Deepa Jordan [address] [place] [address] Dear Ms. Jordan, We are pleased to [...] report will be kept on file at [facility] as part of your permanent medical record and are available for your continuing care. Thank you for allowing us to help in meeting your health care needs. Sincerely, Dr. Skinner Interpreting Radiologist [facility] (Normal over 40) documented in this encounterSam[facility]09-08-2022 History of Present illness Narrative* DAVID Velazquez) - 06/25/2022 11:00 AM EDT Radiology Service Progress Note PATIENT NAME: Deepa Jordan DATE OF SERVICE: June 25, 2022 TIME: 11:49 AM PATIENT IDENTITY VERIFICATION COMPLETED USING TWO (2) IDENTIFIERS: Name and Date of confirmedby patient verbally. FALL SCREENING: Has the patient [...] 25, 2022 11:49 AM documented in this encounterSam[facility]09-08-2022 History of Present illness Narrative* DAVID Velazquez) - 06/25/2022 10:30 AM EDT Radiology Service Progress Note PATIENT NAME: Deepa Jordan DATE OF SERVICE: June 25, 2022 TIME: 11:48 AM PATIENT IDENTITY VERIFICATION COMPLETED USING TWO (2) IDENTIFIERS: Name and Date of confirmedby patient verbally. FALL SCREENING: Has the patient had 2 falls in the last year or 1 fall with injury or currently using an Ambulatory Assistive Device (Walker, Cane, Wheelchair, Crutches, etc.)? No PATIENT GENDER DATA: Female. status: : No status: N/A PATIENT RELEVANT IMPLANT DATA REVIEWED: Not Applicable RADIOLOGY DEPARTMENT: Mammography PERIPHERAL IV DATA: Not applicable SIGNED BY: DAVID Velazquez) June 25, 2022 11:48 AM documented in this encounterSam[facility]10-27-2021 NoteHNO ID: [id number] Author: DAVID Velazquez) Service: ? Author Type: [...] DATA: Not applicable SIGNED BY: DAVID Velazquez) August 13, 2021 9:05 [facility]10-05-2021 NoteHNO ID: [id number] Author: DAVID Velazquez) Service: ? Author Type: [...] BY: RT Caroline(R) July 22, 2021 11:07 [facility] note* Diagnosis Onset Date Resolution Status Annual physical exam acute Wellness examination acute Erythematous papules of skin acute Pruritic dermatitis acute [facility] Work Phone: Evaluation note* Diagnosis Onset Date Resolution Status Erythematous papules of skin acute Pruritic dermatitis acute Mononucleosis syndrome acute Multiple joint pain acute Osteoarthritis of right hip acute [facility] Work Phone: Evaluation note* Diagnosis Onset Date Resolution Status Anxiety acute Fatigue acute Hypothyroidism (acquired) [place] Mononucleosis syndrome acute Multiple joint pain acute Weakness acute [facility] Work Phone: Evaluation note* Diagnosis Onset Date Resolution Status Anxiety acute Fatigue acute Hypothyroidism (acquired) [place] Mononucleosis syndrome acute Multiple joint pain acute Weakness acute Hypothyroidism (acquired) [place] Left otitis media acute Multiple joint pain acute Neck pain acute [facility] Work Phone: Evaluation note* Diagnosis Onset Date Resolution Status 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, acquired acute Urine incontinence acute Anemia acute B12 deficiency acute [facility] Work Phone: Reason for referral (narrative)No reason for referral information availableW[facility] Work Phone: Summary Purpose Family History No [...] ladder, acquired Urine incontinence Anemia B12 deficiency Chief Complaint Admit Date F/up from hospital(Acid reflex)fatigue A ug2024 5:38pm Reason for Visit Admit Date Bigeminy May 23, 2025 5:3 8pm Fatigue May 23, 2025 5:3 8pm Hypothyroidism (acquired) May 23 5:38pm Additional Source Comments INFORMATION SOURCE (unrecogn ized section and content) DATE CREATED AUTHOR 05/11/2020 [place] [facility] DATE CREATED AUTHOR AUTHOR'S ORGANIZ ATION 11/05/2021 [facility] DATE CREATED AUTHOR AUTHOR'S ORGANIZ ATION 10/31/2024 [facility] DATE CREATED AUTHOR AUTHOR'S ORGANIZ ATION 05/24/2025 [facility] DATE CREATED AUTHOR AUTHOR'S ORGANIZ ATION 05/30/2025 [facility] DATE CREATED AUTHOR AUTHOR'S ORGANIZ ATION 08/11/2025 [facility] Reason for Visit (unrecogniz ed section [...] or prosecute any alcohol or drug abuse patient.[facility] Center[facility] the event this information is protected by the Federal Confidentiality of Alcohol and Drug Abuse Patient Records regulations: The Federal rules restrict any use of the information to criminally investigate or prosecute any alcohol or drug abuse patient.[facility] CenterIn the event this information is protected by the Federal Confidentiality of Alcohol and Drug Abuse Patient Records regulations: The Federal rules restrict any use of the information to criminally investigate or prosecute any alcohol or drug abuse patient.[facility] CenterIn the event this information is protected by the Federal Confidentiality of Alcohol and Drug Abuse Patient Records regulations: The Federal rules restrict any use of the information to criminally investigate or prosecute any alcohol or drug abuse patient.[facility] CenterIn the event this information is protected by the Federal Confidentiality of Alcohol and Drug Abuse Patient Records regulations: The Federal rules restrict any use of the information to criminally investigate or prosecute any alcohol or drug abuse patient.[facility] CenterIn the event this information is protected by the Federal Confidentiality of Alcohol and Drug Abuse Patient Records regulations: The Federal rules restrict any use of the information to criminally investigate or prosecute any alcohol or drug abuse patient.[facility] CenterIn the event this information is protected by the Federal Confidentiality of Alcohol and Drug Abuse Patient Records regulations: The Federal rules restrict any use of the information to criminally investigate or prosecute any alcohol or drug abuse patient.[facility] CenterIn the event this information is protected by the Federal Confidentiality of Alcohol and Drug Abuse Patient Records regulations: The Federal rules restrict any use of the information to criminally investigate or prosecute any alcohol or drug abuse patient.[facility] CenterIn the event this information is protected by the Federal Confidentiality of Alcohol and Drug Abuse Patient Records regulations: The Federal rules restrict any use of the information to criminally investigate or prosecute any alcohol or drug abuse patient.[facility] CenterIn the event this information is protected by the Federal Confidentiality of Alcohol and Drug Abuse Patient Records regulations: The Federal rules restrict any use of the information to criminally investigate or prosecute any alcohol or drug abuse patient.[facility] CenterIn the event this information is protected by the Federal Confidentiality of Alcohol and Drug Abuse Patient Records regulations: The Federal rules restrict any use of the information to criminally investigate or prosecute any alcohol or drug abuse patient.[facility] Care Teams (unrecognized sec tion and content) Civil Designer Relationship Specialty Start Date End Date Elmo Ackerman, ANIMAL NURSE.SUPPORT DIRECTOR [address] [place], [place] [phone] PCP - General Family Practice 07/28/17 Civil Designer Relationship Specialty Start Date End Date Elmo Ackerman, ANIMAL NURSE.SUPPORT DIRECTOR [address] [place], [place] [phone] PCP - General Family Practice 07/28/17 Team Status: Active Member Role Status Dates No Primary Care Physician Family Provider Active Elmo Ackerman ADMEASURER, ADMEASURER-C Primary Care Provider Active Team Status: Inactive Member Role Status Dates Elmo Ackerman ADMEASURER, ADMEASURER-C Primary Care Pr ovider, Attending Provider, Referring Provider Active Team Status: Inactive Member Role Status Dates Elmo Ackerman ADMEASURER, ADMEASURER-C Primary Care Provider, Attend ing Provider Active Civil Designer Relationship Specialty Start Date End Date Elmo Ackerman, ANIMAL NURSE.SUPPORT DIRECTOR [address] [place], [place] [phone] PCP - General Family Medicine 07/28/17 Civil Designer Relationship Specialty Start Date End Date Elmo Ackerman, ANIMAL NURSE.SUPPORT DIRECTOR [address] [place], [place] [id number] PCP - General Family Medicine 07/28/17 Civil Designer Relationship Specialty Start Date End Date Elmo Ackerman, ANIMAL NURSE.SUPPORT DIRECTOR [address] [place], [place] [id number] PCP - General Family Medicine 07/28/17 Team Status: Inactive Member Role Status Dates Elmo Ackerman ADMEASURER, ADMEASURER-C Primary Care Provider Active Dr. Tati Rivera MD Attending Provider, Referring P alia Active Civil Designer Relationship Specialty Start Date End Date Elmo Ackerman, ANIMAL NURSE.SUPPORT DIRECTOR [address] [place], [place] [phone] PCP - General Family Medicine 07/28/17 Team Status: Active Member Role/Relationship Status Dates No Primary Care Physician Family Provider Active Elmo Ackerman ADMEASURER, ADMEASURER-C Primary Care Provider Active Team Status: Inactive Member Role/Relationship Status Dates Elmo Ackerman ADMEASURER, ADMEASURER-C Primary Care Provider Active Start: April 17, 2025 Dr. Tati Rivera MD Attending Provider Active Start: April 17, 2025 Team Status: Inactive Member Role/Relationship Status Dates Elmo Ackerman ADMEASURER, ADMEASURER-C Primary Care Provider Active Start: May 23, 2025 End: May 23, 2025 Elmo Ackerman ADMEASURER, ADMEASURER-C Attending Provider Active Start: May 23, 2025 End: May 23, 2025 Elmo Ackerman ADMEASURER, ADMEASURER-C Referring Provider Active Start: May 23, 2025 End: May 23, 2025 Team Status: Inactive Member Role/Relationship Status Dates Elmo Ackerman ADMEASURER, ADMEASURER-C Primary Care Provider Active Start: May 23, 2025 End: May 23, 2025 Elmo Ackerman ADMEASURER, ADMEASURER-C Attending Provider Active Start: May 23, 2025 End: May 23, 2025 Elmo Ackerman ADMEASURER, ADMEASURER-C Referring Provider Active Start: May 23, 2025 End: May 23, 2025 Goals (unrecognized section and content) Goals may [...] BE BASED ON THE PRIMARY CLINICAL RECORDS. [employer] [facility]. provides no warranty or guarantee of the accuracy or completeness of information in this document.
[2025-08-30 22:56] LABS: AST(SGOT) 22 U/L (<=31); Alanine Aminotransfer ALT/SGPT 14 U/L (<=34); Albumin, Serum 4.5 g/dL (3.4-4.8); Alkaline Phosphatase 98 U/L (35-104); Anion Gap 10 (5-15); BUN 26 mg/dL (4-19); BUN/Creat Ratio 29.4 RATIO (10-20); Calcium,Total 9.1 mg/dL (7.6-11.0); Carbon Dioxide 25.2 mmol/L (21.0-32.0); Chloride 104 mmol/L (98-108); Cholesterol 229 mg/dL (<=200); Free T3 3.1 pg/mL (2.18-3.98); Globulin 2.8 g/dL (2.2-4.2); Glucose 106 mg/dL (70-99); Low Density Lipoprotein Calc. 155 mg/dL; Potassium 4.4 mmol/L (3.3-5.1); Triglycerides 139 mg/dL; Very Low Density Lipoprotein 28 mg/dL (5-40); Vitamin B12 782 pg/mL (180-914); cholesterol:hdl ratio screen 4.65
[2025-08-30 22:59] LABS: Hematocrit 39.2 % (37-47); Hemoglobin 13.1 g/dL (12.0-15.0); Immature Granulocytes Count 0.020 X10^3/uL (0.0-0.0); Mean Corp Hgb Conc 33.4 g/dL (32-36); Mean Corpuscular Volume 88.1 fL (81-99); Mean Platelet Vol. 10.9 fl (6.2-12.0); NRBC Flagged by Analyzer 0 % (0-5); Platelet Count 315 K/mm3 (150-450); RBC Distribution Width CV 13.7 % (11.6-14.6); RBC Distribution Width SD 43.2 fl (35.1-43.9); Red Blood Count 4.45 M/mm3 (4.2-5.4); White Blood Count 9.8 K/mm3 (4.4-11.0)
[2025-09-03 17:08] LABS: EBV Acute VCA IgM < 36.0 U/mL (0.0-35.9); EBV-VCA IgG > 600.0 U/mL (0.0-17.9)
== END 2025-08-30 23:59 | disposition home or self-care (01) ==
PROVIDERS: PCP Nurse Practitioner; Referring Provider Nurse Practitioner; Visit Provider Nurse Practitioner
DX: I49.8 Other specified cardiac arrhythmias (principal); E53.8 Deficiency of other specified B group vitamins; M25.50 Pain in unspecified joint; E03.9 Hypothyroidism, unspecified; G93.39 Other post infection and related fatigue syndromes; R53.1 Weakness; R41.89 Other symptoms and signs involving cognitive functions and awareness; R73.9 Hyperglycemia, unspecified
CPT/HCPCS: 80053; 80061; 82607; 83036; 84439; 84443; 84481; 85025; 86376; 86664; 86665; 86800